=== PATIENT | female | born 1955 | race Caucasian/White ===

== ENCOUNTER → 2021-04-18 10:35 | Outpatient (BNVA) | payer MEDICAID, SELFPAY | PROVIDERS: PCP Nurse Practitioner Family; Visit Provider Nurse Practitioner Family | DX: R53.83 Other fatigue (principal); E78.5 Hyperlipidemia, unspecified; I10 Essential (primary) hypertension | CPT/HCPCS: 80053; 80061; 84443; 85007; 85027 ==

== ENCOUNTER 2021-06-27 12:58 | Outpatient (CLI) | payer MEDICAID, SELFPAY ==
--- NOTE | 2021-06-27 14:15 | USCV_ITS ---
Lois Russo Age: 66 Gender: F : 1955 Exam Date: 06/27/2021 13:11 Ordering Phys: Phyllis Cheney Technologist: Raissa Amos [place]am Location[place] [facility] [place]ication: HTN AND REDUCED RENAL FUNCTION Aortic Velocity @ SMA (cm/s) 76.1 RIGHT KIDNEY LEFT KIDNEY Velocity (cm/s) Velocity (cm/s) Sys/Farr Sys/Farr Resistive Index Resistive Index 46.3 / 19.8 0.57 Proximal Renal Artery 89.2 / 20.7 0.77 95.0 / 27.3 0.71 Mid Renal Artery 103.6 / 16.4 0.84 77.7 / 30.6 0.61 Distal Renal Artery 84.5 / 24.5 0.71 82.6 / 21.5 0.74 Hilar 91.3 / 24.5 0.73 89.2 / 22.3 0.75 Upper Pole 44.1 / 14.7 0.67 97.5 / 27.3 0.72 Mid Pole 53.3 / 16.1 0.70 52.1 / 19.0 0.63 Lower Pole 54.0 / 13.6 0.75 1.20 Renal Aortic Ratio 1.36 Accleration Index (cm/sec2) 1158.0 Hilar 658.00 0 513.00 Upper Pole 226.00 797.00 Mid Pole 289.00 421.00 Lower Pole 323.00 93.8 Kidney Length (mm) 92.2 CONCLUSIONS No sonographic evidence of hemodynamically significant renal artery stenosis bilaterally. Normal Resistive Indices. Right kidney measurs 9.3cm Left kidney measures 9.2cm Sal Saleh MD (Electronically Signed) Final Date: 01 July 2021 11:59 S
== END 2021-06-27 12:59 | disposition home or self-care (01) ==
LOC: RAD 12:58
PROVIDERS: PCP Nurse Practitioner Family; Visit Provider Nurse Practitioner Family
DX: I10 Essential (primary) hypertension (principal)
CPT/HCPCS: 93975

== ENCOUNTER → 2021-07-31 10:42 | Outpatient (BNVA) | payer MEDICAID, SELFPAY | PROVIDERS: PCP Nurse Practitioner Family; Visit Provider Nurse Practitioner Family | DX: R39.9 Unspecified symptoms and signs involving the genitourinary system (principal) | CPT/HCPCS: 81000; 87077; 87086; 87184 ==

== ENCOUNTER → 2021-11-21 13:36 | Outpatient (BNVA) | payer MEDICAID, SELFPAY | PROVIDERS: PCP Nurse Practitioner Family; Visit Provider Nurse Practitioner Family | DX: N39.0 Urinary tract infection, site not specified (principal) | CPT/HCPCS: 81000 ==

== ENCOUNTER 2021-12-16 12:48 | Outpatient (CLI) | payer MEDICAID, SELFPAY ==
--- NOTE | 2021-12-16 12:57 | XRR_ITS ---
PROCEDURE INFORMATION: Exam: XR Lumbosacral Spine Exam date and time: 12/16/2021 1:08 PM Age: 66 years old Clinical indication: Low back pain; Prior surgery; Surgery type: Fusion; Patient HX: Pain from low back to knee; Additional info: M54.50 - low back pain, unspecified TECHNIQUE: Imaging protocol: Radiologic exam of the lumbosacral spine. Views: 2 or 3 views. COMPARISON: [place] [id number] 11/17/2015 8:02 PM FINDINGS: Bones/joints: Mild levocurvature of the lumbar spine is present. The normal lumbar lordosis is maintained, with grade 1 retrolisthesis of L2 and L1. The patient is status post L3-L5 posterior fusion. No evidence of hardware related complication. No fracture identified. Vertebral body heights are well preserved. There is multilevel degenerative changes, manifested by intervertebral disc space narrowing, endplate osteophytes and facet joint arthrosis. Soft tissues: Unremarkable. Intraperitoneal space: Cholecystectomy clips project over the right upper quadrant. XR/XR lumbar spine 2-3V* [id number] IMPRESSION: 1. No acute injury. 2. Degenerative changes of the lumbar spine. 3. Stable appearance of L3-L5 posterior fusion, without evidence of hardware related complication.
== END 2021-12-16 12:49 | disposition home or self-care (01) ==
LOC: RAD 12:50
PROVIDERS: PCP Nurse Practitioner Family; Visit Provider Nurse Practitioner Family
DX: M54.50 Low back pain, unspecified (principal); Z98.1 Arthrodesis status
CPT/HCPCS: 72100; 81000

== ENCOUNTER → 2021-12-30 10:40 | Outpatient (BNVA) | payer MEDICAID, SELFPAY | PROVIDERS: PCP Nurse Practitioner Family; Visit Provider Orthopaedic Surgery | DX: M54.50 Low back pain, unspecified (principal); Z98.1 Arthrodesis status | CPT/HCPCS: 99203; 99204 ==

== ENCOUNTER → 2021-12-30 12:36 | Outpatient (BNVA) | payer MEDICAID, SELFPAY | PROVIDERS: PCP Nurse Practitioner Family; Visit Provider Nurse Practitioner Family | DX: M54.9 Dorsalgia, unspecified (principal); Z98.890 Other specified postprocedural states; R31.9 Hematuria, unspecified; N39.0 Urinary tract infection, site not specified | CPT/HCPCS: 87077; 87086; 87184 ==

== ENCOUNTER → 2022-01-07 11:17 | Outpatient (BNVA) | payer MEDICAID, SELFPAY | PROVIDERS: PCP Nurse Practitioner Family; Visit Provider Nurse Practitioner Family | DX: R31.9 Hematuria, unspecified (principal) | CPT/HCPCS: 87086 ==

== ENCOUNTER → 2022-03-02 16:47 | Outpatient (BNVA) | payer MEDICARE, MEDICAID, SELFPAY | PROVIDERS: PCP Nurse Practitioner Family; Visit Provider Nurse Practitioner Family | DX: M54.9 Dorsalgia, unspecified (principal); Z98.890 Other specified postprocedural states; I10 Essential (primary) hypertension | CPT/HCPCS: 80053 ==

== ENCOUNTER 2022-03-12 10:58 | Outpatient (CLI) | payer MEDICARE, MEDICAID, SELFPAY ==
--- NOTE | 2022-03-12 11:00 | MR_ITS ---
WS: [id number] MRI LUMBAR SPINE NONCONTRAST TECHNIQUE: Sagittal T1, T2 and STIR imaging. Axial T1 and T2 imaging. CLINICAL INFORMATION: low back pain COMPARISON: None. FINDINGS: Mild lumbar curve. No acute compression. Pedicle screw fixation L3-L5 with decompressive laminectomie s. Slight retrolisthesis L1 on L2 and L2 on L3. Slight anterolisthesis L4 on L5. Small central protru sions the lower thoracic spine at T8-T9, T10-T11, T12-L1. L1-L2: Mild disc bulging with mild central canal stenosis. Narrowing of the subarticular recess bilat erally. Moderate facet arthropathy with ligamentum flavum hypertrophy. Moderate RIGHT greater than LE FT foraminal narrowing. L2-L3: Slight retrolisthesis. Mild central disc bulging. Moderate central canal stenosis and impingem ent traversing L3 nerve roots bilaterally. Moderate bilateral foraminal narrowing. L3-L4: Mild disc bulging. Moderate facet arthropathy. Spinal canal is patent. Mild LEFT bony foramina l narrowing. Moderate facet arthropathy. L4-L5: Laminectomy defects. Mild disc bulging with slight effacement of ventral thecal sac. Slight im pingement traversing L5 nerve roots bilaterally. Mild central canal stenosis. Mild RIGHT greater than LEFT foraminal narrowing. L5-S1: Mild annular bulging with slight impingement traversing LEFT greater than RIGHT S1 nerve roots . Mild to moderate LEFT foraminal narrowing. Mild to moderate facet arthropathy. Spinal canal is will nt. Small RIGHT renal cyst. MR/MR lumbar spine wo con* [id number] IMPRESSION: 1. Prior postoperative changes pedicle screw fixation L3-L5 with laminectomy d efects L3 and L4 2. Mild central canal stenosis L1-L2 with narrowing of the subarticular recess bilaterally. Technique 3. Moderate central canal stenosis L2-L3 with narrowing of the subarticular re cess. 4. Mild central canal stenosis L4-L5 with impingement on the traversing L5 ner ve roots bilaterally RIGHT greater than LEFT. 5. Disc bulging L5-S1 with slight impingement on the LEFT S1 nerve root. 6. Multilevel mild to moderate foraminal narrowing worse at RIGHT L1-L2, bilat eral L2-L3, and LEFT L5-S1. 7. Mild RIGHT greater than LEFT L4-L5 bony foraminal narrowing. 8. Small central protrusion at T8-T9 with slight contact of the thoracic cord with mild central canal stenosis. Additional small protrusions at T10-T11 and T 12-L1.
== END 2022-03-12 10:59 | disposition home or self-care (01) ==
LOC: RAD 10:59
PROVIDERS: PCP Nurse Practitioner Family; Visit Provider Orthopaedic Surgery
DX: M48.061 Spinal stenosis, lumbar region without neurogenic claudication (principal); Z98.1 Arthrodesis status; M51.36 Other intervertebral disc degeneration, lumbar region
CPT/HCPCS: 72148; 87077; 87086; 87184

== ENCOUNTER → 2022-03-17 10:34 | Outpatient (BNVA) | payer MEDICARE, MEDICAID, SELFPAY | PROVIDERS: PCP Nurse Practitioner Family; Visit Provider Orthopaedic Surgery | DX: M48.062 Spinal stenosis, lumbar region with neurogenic claudication (principal); Z98.1 Arthrodesis status | CPT/HCPCS: 99214 ==

== ENCOUNTER 2022-05-22 14:20 | Outpatient (CLI) | payer MEDICARE, MEDICAID, SELFPAY ==
--- NOTE | 2022-05-22 15:07 | XR_ITS ---
WS: [id number] PA chest with bilateral rib detail, 05/22/2022 Clinical Data: S22.49XA - Multiple fractures of ribs, unspecified side, ... Comparison: Portable chest, 12/30/2015. Findings: The heart and lungs show no acute change. There is a subcarinal granuloma. There is a dextroscoliosis of the thoracic vertebral bodies. The superior aspect of the posterior lumbar fusion is seen. There are left lateral rib fractures of the sixth, seventh and eighth ribs with periosteal new bone formati on. There are right lateral rib fractures of the fourth, fifth, sixth, seventh and eighth ribs with p eriosteal new bone formation. No pneumothorax or subcutaneous emphysema is seen. XR/XR ribs BI 3V* [id number] Impression: 1. Old bilateral rib fractures. 2. Negative for acute cardiopulmonary disease.
== END 2022-05-22 14:21 | disposition home or self-care (01) ==
LOC: RAD 14:25
PROVIDERS: PCP Nurse Practitioner Family; Visit Provider Nurse Practitioner Family
DX: S22.49XA Multiple fractures of ribs, unspecified side, initial encounter for closed fracture (principal); X58.XXXA Exposure to other specified factors, initial encounter
CPT/HCPCS: 71110

== ENCOUNTER → 2022-06-09 15:32 | Outpatient (BNVA) | payer MEDICARE, MEDICAID, SELFPAY | PROVIDERS: PCP Nurse Practitioner Family; Visit Provider Orthopaedic Surgery | DX: M48.062 Spinal stenosis, lumbar region with neurogenic claudication (principal) | CPT/HCPCS: 99214 ==

== ENCOUNTER → 2022-06-23 14:07 | Outpatient (BNVA) | payer MEDICARE, MEDICAID, SELFPAY | PROVIDERS: PCP Nurse Practitioner Family; Referring Provider Orthopaedic Surgery; Visit Provider Orthopaedic Surgery | DX: M16.12 Unilateral primary osteoarthritis, left hip (principal) | CPT/HCPCS: 73502; 99214 ==

== ENCOUNTER 2022-07-27 09:01 | Inpatient (IN) | payer MEDICARE, MEDICAID, SELFPAY ==
[2022-07-21 13:10] VITALS: BMI 27.3
[2022-07-21 13:47] LABS: Anion Gap 14.4 (5-19); Blood Urea Nitrogen 18 mg/dL (8-23); Calcium 9.7 mg/dL (8.5-10.5); Carbon Dioxide 29 mmol/L (22-29); Chloride 93 mmol/L (98-107); Glomerular Filtration Rate 55.6 mL/min (90-130); Glucose 105 mg/dL (65-115); Osmolality Calculated 278 mOsm/kg (285-295); Potassium 3.4 mmol/L (3.5-5.1); Sodium 133 mmol/L (136-145)
[2022-07-27] VITALS (17 sets, daily range): BP systolic 97–173; BP diastolic 53–89; PULSE 59–77; RESP 14–18; TEMP 36.2–36.8; O2SAT 2–100
[2022-07-27] MEDS: sodium chloride 0.9% 1,000 ML 30 ML IV (09:18)
--- NOTE | 2022-07-27 09:43 | P.ANESASSM_ITS ---
Pre-Anesthetic Assessment Height/Weight: Height 1.73 m Weight 81.647 kg Temp Pulse Resp BP Pulse Ox O2 Del Method 97.2 F L 59 L 16 173/89 95 07/27/22 09:10 07/27/22 09:10 07/27/22 09:10 07/27/22 09:10 07/27/22 09:10 07/27/22 09:10 Preop Diagnosis: Lumbar stenosis with neurogenic claudication. DDD L spine Operation Date: 07/27/22 10:30 Proposed Procedures p Spinal Fusion:Pelvis fusion with sacroliliac fusion-w decomp L1-L2 L2/3 and L5-S1, 34050,15023,90433,57203,95829,40901,01665,88705,58697,46068,M48.062(Not Applicable) - DO francisco Calix Lumbar Spine Decompression(Not Applicable) - Horacio Nagy DO Familial anesthetic complications: none Was Beta Nikhil taken within 24 hours: Yes Was Clonidine taken within 24 hours: N/A Last intake: Intake Last Liquid Date 07/26/22 Last Liquid Time 23:00 Last Solid Date 07/26/22 Last Solid Time 18:00 Social Tobacco and No alcohol Exam alert, oriented x 3 and regular rate & rhythm Airway Submandibular: within normal limits Cervical ROM: within normal limits Mallampati: Class II Dentition: false Pulmonary Chronic Obstructive Pulmonary Disease CV/HEM Hypertension GI Gastroesophageal Reflux Disease [facility] [place] Lower Back Pain and Osteoarthritis/DJD Anesthetic Plan ASA status: 3 Anesthesia: General Other: A.line, transfusion OK Medications/Allergies Home Medications Medication Instructions Recorded Confirmed Last Taken Type budesonide 3 mg See Rx Instructions .Route 05/19/22 07/21/22 07/21/22 Rx capsule,delayed,extended release .COMPLEX #180 caps citalopram 20 mg tablet See Rx Instructions .Route 05/19/22 07/21/22 07/21/22 Rx .COMPLEX #90 tabs diltiazem HCl 300 mg See Rx Instructions .Route 05/19/22 07/21/22 07/21/22 Rx capsule,extended release 24 hr .COMPLEX #90 caps hydrochlorothiazide 25 mg tablet See Rx Instructions .Route 05/19/22 07/21/22 07/20/22 Rx .COMPLEX #90 tabs lisinopril 40 mg tablet See Rx Instructions .Route 05/19/22 07/21/22 07/21/22 Rx .COMPLEX #90 tabs metoprolol succinate 100 mg See Rx Instructions .Route 05/19/22 07/21/22 07/20/22 Rx tablet,extended release 24 hr .COMPLEX #90 tabs potassium chloride 10 mEq 10 meq PO DAILY #90 tabs 05/19/22 07/21/22 07/21/22 Rx tablet,extended release(part/cryst) rabeprazole 20 mg tablet,delayed 20 mg PO DAILY #90 tabs 05/19/22 07/21/22 07/21/22 Rx release Bone Growth Stimulator E0748 #1 ea 07/13/22 Unknown Rx Intraoperative Neuromonitoring #1 ea 07/13/22 Unknown Rx Allergies Allergy/AdvReac Type Severity Reaction Status Date / Time nitrofurantoin AdvReac sob Verified 06/23/22 13:56 [From Macrobid] Current Medications Generic Name Dose Route Start Last Admin Trade Name Freq PRN Reason Stop Dose Admin Sodium Chloride 1,000 mls @ 30 mls/hr 07/27/22 09:00 07/27/22 09:18 Sodium Chloride 0.9% IV 07/28/22 08:59 30 mls/hr .Q24H JONO Administration PFSH Anesthesia Medical History Anxiety Back pain with history of spinal surgery GERD (gastroesophageal reflux disease) History of stomach ulcers Hx of cardiac murmur Hypertension Surgical History History of tonsillectomy Hx of bladder repair surgery Hx of cholecystectomy Hx of hysterectomy Previous back surgery Family History Father CAD (coronary artery disease) Mother No problems noted. Social History Smoking and tobacco status: never smoked Alcohol intake: never Data Anesthesia 07/21/22 13:19 Cardiac Studies: No Data to Display
--- NOTE | 2022-07-27 10:19 | PM.HP ---
Providers/Chief Complaint Primary Care Provider: HENOK Caicedo Chief Complaint: L1 pelvic fusion w sacroiliac fusion.decompL1-L2 a History of Present Illness Lois Russo is a 67 year old female Established 67 year old female patient here today for a follow up of low back pain. Patient states she was scheduled for surgical intervention with Dr. Nagy but had to cancel due to an a fall. She states she broke 8 ribs. She states she has finally recovered and ready to re schedule surgery. Chief Complaint: low back pain Onset: months ago Duration: constant Characteristics: aching, sharp, stabbing Severity: Location: lumbar region Radiating symptoms: pain radiates into left lower extremities Aggravating factors: standing and walking Alleviating factors:pain medication Neuro deficits: reports weakness,. denies numbness, tingling, incontinence of bowel/bladder, saddle anesthesia. Prior tx:?injections, Lumbar fusion, physical therapy Review of Systems Const: Denies: fever(s) or chills Card: Denies: chest pain or dyspnea on exertion Resp: Denies: dyspnea or productive cough GI: Denies: abdominal pain, nausea or vomiting : Denies: difficulty voiding Musc: Denies: joint pain, joint swelling or limited range of motion Skin/Breast: Denies: changes in skin color or dry skin Neuro: Denies: numbness in extremities or weakness in extremities Psych: Denies: anxiety Doug/Lymph: Denies: easy bruising or easy bleeding Medications/Allergies Home Medications Medication Instructions Recorded Confirmed Last Taken Type budesonide 3 mg See Rx Instructions .Route 05/19/22 07/21/22 07/21/22 Rx capsule,delayed,extended release .COMPLEX #180 caps citalopram 20 mg tablet See Rx Instructions .Route 05/19/22 07/21/22 07/21/22 Rx .COMPLEX #90 tabs diltiazem HCl 300 mg See Rx Instructions .Route 05/19/22 07/21/22 07/21/22 Rx capsule,extended release 24 hr .COMPLEX #90 caps hydrochlorothiazide 25 mg tablet See Rx Instructions .Route 05/19/22 07/21/22 07/20/22 Rx .COMPLEX #90 tabs lisinopril 40 mg tablet See Rx Instructions .Route 05/19/22 07/21/22 07/21/22 Rx .COMPLEX #90 tabs metoprolol succinate 100 mg See Rx Instructions .Route 05/19/22 07/21/22 07/20/22 Rx tablet,extended release 24 hr .COMPLEX #90 tabs potassium chloride 10 mEq 10 meq PO DAILY #90 tabs 05/19/22 07/21/22 07/21/22 Rx tablet,extended release(part/cryst) rabeprazole 20 mg tablet,delayed 20 mg PO DAILY #90 tabs 05/19/22 07/21/22 07/21/22 Rx release Bone Growth Stimulator E0748 #1 ea 07/13/22 Unknown Rx Intraoperative Neuromonitoring #1 ea 07/13/22 Unknown Rx Allergies Allergy/AdvReac Type Severity Reaction Status Date / Time nitrofurantoin AdvReac sob Verified 06/23/22 13:56 [From Macrobid] PFSH Acute PFSH: Medical History Anxiety Back pain with history of spinal surgery GERD (gastroesophageal reflux disease) History of stomach ulcers Hx of cardiac murmur Hypertension Surgical History History of tonsillectomy Hx of bladder repair surgery Hx of cholecystectomy Hx of hysterectomy Previous back surgery Family History Father CAD (coronary artery disease) Mother No problems noted. Social History Smoking and tobacco status: never smoked Alcohol intake: never Vitals/I&O/Wt Last Vital Signs Temp 97.2 F L 07/27/22 09:10 Pulse 59 L 07/27/22 09:10 Resp 16 07/27/22 09:10 BP 173/89 07/27/22 09:10 Pulse Ox 95 07/27/22 09:10 O2 Del Method 07/27/22 09:10 Physical Exam Narrative: EXAM NARRATIVE: CONSTITUTIONAL: This is a normal patient in no acute distress. ?PSYCH: The patient is oriented to person, place and time. ?SKIN: The skin is of normal color and texture. ?NEURO: Patient is neurovascularly intact. ?MUSCULOSKELETAL / EXTREMITIES: ?1.? lnjury(s):?Lumbar stenosis with neurogenic claudication Data 07/21/22 13:19 A&P Assessment and plan (1) Lumbar stenosis with neurogenic claudication: T10 to pelvis fusion with decompression Attestations Medical Necessity Statement*: Failed conservative tx Coding Level of Care Code Acute Code for Chg Fwd Diagnoses Lumbar stenosis with neurogenic claudication M48.062
[2022-07-27] MEDS: ceFAZolin 2,000 MG in sodium chloride 0.9% (plus) 50 ML 100 MG IV ×2 (10:52→18:25)
--- NOTE | 2022-07-27 11:29 | SUR.OPER ---
skin tear noted to left elbow after turning patient. Tegaderm applied to open wound and coban over tegaderm.
[2022-07-27 11:50] LABS: Basophils % 0.3 %; Eosinophils # 0.1 10^3/uL (0.0-0.8); Eosinophils % 0.6 %; Hematocrit 38.7 % (37.0-47.0); Hemoglobin 12.9 g/dL (11.5-15.3); Lymphocytes # 3.7 10^3/uL (0.8-4.8); Lymphocytes % 29.7 %; Mean Corpuscular HGB Conc 33.3 g/dL (30.0-36.0); Mean Corpuscular Hemoglobin 30.8 pg (28.0-34.0); Mean Corpuscular Volume 92.4 fl (81-99); Mean Platelet Volume 9.5 fL (7.4-10.4); Monocytes # 0.7 10^3/uL (0.2-0.9); Monocytes % 5.8 %; Neutrophils # 7.96 10^3/uL (1.8-7.7); Neutrophils % 63.1 %; Nucleated Red Blood Cells % 0 %; Platelet Count 311 10^3/cmm (130-400); Red Blood Count 4.19 10^6/uL (4.1-5.3); Red Cell Distribution Width 13.7 % (12.1-15.1); White Blood Count 12.6 10^3/uL (4.0-10.0)
[2022-07-27] MEDS: vancomycin 1,000 MG SDV 1000 MG XX ×2 (11:57→15:54)
[2022-07-27] MEDS: lidocaine-epi 1% 20 mL INJ INJECTION (11:57)
[2022-07-27] MEDS: heparin, porcine 1,000 unit/mL INJ 10 mL 10000 UNIT IRRIGATION (11:57)
[2022-07-27 12:09] LABS: Blood Urea Nitrogen 16 mg/dL (8-23); Calcium 8.5 mg/dL (8.5-10.5); Carbon Dioxide 27 mmol/L (22-29); Chloride 97 mmol/L (98-107); Glomerular Filtration Rate 62.8 mL/min (90-130); Glucose 103 mg/dL (65-115); Osmolality Calculated 281 mOsm/kg (285-295); Sodium 135 mmol/L (136-145)
--- NOTE | 2022-07-27 12:12 | SUR.OPER ---
family notified of surgical start and progress.
--- NOTE | 2022-07-27 13:45 | SUR.OPER ---
family updated on surgical progress.
--- NOTE | 2022-07-27 16:52 | XRR_ITS ---
PROCEDURE INFORMATION: Exam: XR Lumbosacral Spine Exam date and time: 07/27/2022 4:12 PM Age: 67 years old Clinical indication: Device placement; Internal orthopedic prosthetic device, implant or graft thoracolumbar spine; Prior surgery; Surgery date: Post-operative (0-2 days); Surgery type: Pa/lat post op fusion, include up to t10 and the pelvis TECHNIQUE: Imaging protocol: Radiologic exam of the lumbosacral spine. Views: 2 or 3 views. COMPARISON: OT XR lumbar spine 1V [id number] 07/27/2022 10:28 AM FINDINGS: Bones/joints: Osteopenia. He Multilevel laminectomy and pedicle screw fixation in the thoracolumbar spine, along with bilateral surgical sacroiliac joint ankylosis. Multilevel degenerative change and mild scoliosis. Gastrointestinal tract: Bowel dilatation and prominent stool. XR/XR lumbar spine 2-3V* [id number] IMPRESSION: 1. Multilevel laminectomy and pedicle screw fixation in the thoracolumbar spine, along with bilateral surgical sacroiliac joint ankylosis. 2. Multilevel degenerative change and mild scoliosis.
--- NOTE | 2022-07-27 17:04 | ANE.PACU2 ---
Inpatient post-anesthesia follow up: Airway intact: Yes Vital signs: Temperature 97.2 F Pulse Rate 59 Respiratory Rate 16 Blood Pressure 173/89 Pulse Oximetry 95 Oxygen Delivery Me thod Room Air Oxygen Flow Rate 6 Fraction of Inspir ed Oxygen Hydration adequate: Yes Nausea and vomiting: No Pain level: 5 Mental status: Baseline
--- NOTE | 2022-07-27 17:23 | PM.OP ---
Operative Report Date of procedure: July 27, 2022 Pre-op diagnosis: Preop Diagnosis Lumbar stenosis with neurogenic claudication. DDD L spine Post-op diagnosis: same Procedure done: 1. L5/S1 Interbody fusion with posterolateral fusion 2. T10 - pelvis posterior fusion 3. Instrumentation T10 -S1 4. Lumbo pelvic instrumentation 5. Cage at L5/S1 6. Laminectomy L5/S1 7. Laminectomy L2/3 with partial facetectomies 8. laminectomy L3/4 with partial facetectomies 9. Right open SI joint fusion 10. Left open SI joint fusion 11. Use of computer navigation stereotactic for spine 12. Bone marrow aspirate from right iliac crest 13. use of autograft from same incision 14. use of allograft 15. Removal of deep hardware from spine (L3-L5) Surgeon: Horacio Nagy Estimated blood loss (mL): 300 Complications: dural tear Procedure: 1. L5/S1 Interbody fusion with posterolateral fusion 2. T10 - pelvis posterior fusion 3. Instrumentation T10 -S1 4. Lumbo pelvic instrumentation 5. Cage at L5/S1 6. Laminectomy L5/S1 7. Laminectomy L2/3 with partial facetectomies 8. laminectomy L3/4 with partial facetectomies 9. Right open SI joint fusion 10. Left open SI joint fusion 11. Use of computer navigation stereotactic for spine 12. Bone marrow aspirate from right iliac crest 13. use of autograft from same incision 14. use of allograft 15. Removal of deep hardware from spine (L3-L5) Patient is brought to the operative suite. After undergoing anesthesia, the patient had neuro monitoring attached. Patient was then placed in the prone position on the González table. All areas of impingement were well-padded. Patient was then prepped and draped in the normal sterile fashion. Skin incision was then made over the T10 to sacrum. Subperiosteal dissection was made out to the transverse processes of T10 to S1 ala.. Once the exposure was complete attention was then brought to removing the current pedicle screws. The K2 M screws were in the tool used to remove the annalee was not present. Side cut the rods. Rods were cut with a Midas using the metal cutting bur. Rods were cut and then the screws were backed out wires. This was done at L3-L4 and L5 bilaterally. Once screws were removed L3 was irrigated. Next attention was brought to the Responde Ai bone marrow aspirate kit was used to aspirate bone marrow aspirate from right iliac crest. This was done by using the sharp probe to open up the bone. Aspiration was performed and then the blunt probe was then used to dissect down to through the bone tunnel. An aspirating well drawn back a millimeter approximately 20 cc of bone marrow aspirate was used. Admixed with the allograft and autograft bone that will be used. Next attention was brought to placing the fiducial for the computer navigation. 2 pins were placed in the right iliac crest. Fiducial was attached. C-arm was brought in and spun around the patient. This was then used to place pedicle screws with computer navigation. The 2 pins that were used for the computer computer navigation were pulled out at the end of the case. The technique for placing the pedicle screws was to use a drill followed by the gearshift probe linked to computer navigation. Followed by the ball probe to feel the superior inferior medial lateral murrieta of the pedicles. Then placement of the screws using computer navigation. Was done at each pedicle. Screws were placed at T10 bilaterally, T11 bilaterally, T12 bilaterally, L1 bilaterally, L2 bilaterally, L3 and previous total on the right. A new hole was created on the left side. L4 bilaterally and the previous 4. L5 bilateral laterally in the previous hole. And S1 bilaterally. He was brought to performing the SI joint fusion. This was done by exposing the SI joint. A gearshift was then passed across through the sacral ala across the SI joint. Just inferior and lateral to the S1 screw. The drill path was created with the gearshift probe. And then the pin was placed into this hole. Then the screw was used to cross the SI joint. Once the hole was drilled prior to placing the screw. Bone graft was packed into this. In order to facilitate fusion as well as a screw. Past across the joint. This process was done on both the right and the left side. Next attention was brought to placing the iliac screw. This was done again using the computer navigation probe. Going from the sacrum across the SI joint across the ala. This was just inferior to the SI joint fusion screw. Once the hole was created then the pedicle feeler was passed to ensure that there is no breaches. And then the screw was placed distal to 9.5 x 80 mm [place] screw. Again this was done bilaterally on both the right and the left side. Next a laminectomy was performed at L2. The high-speed bur was used. With the partial facetectomies were done at L2-3 bilaterally. Again this was done with a high-speed bur. And then curved curettes and Kerrison rongeurs were used to take down the lamina as well as the ligamentum flavum from L2-L3. Medial aspect of facet joints taken down from and L2-3. The L2 nerve was traced out the L2-3 foramen. The dura was tenting up at L3-4 so I felt that the laminectomy reformed L3 and partial facetectomies at L3-4. Laminectomy was then started to perform at L3. The high-speed bur causing scar tissue and it did cause a small tear in the dura. The remaining laminectomy was performed and medial aspect of facets were taken down bilaterally. Nerves were traced out the foramen. The dura was then repaired with a nylon stitch. Gelfoam was packed in order to prevent nerve roots from waking up. And at the end of the case a DuraGen and DuraSeal were used to seal this off. Next attention was brought to performing the laminectomy ofL5. This was done using the high-speed bur Kerrisons and curettes. Once the lamina was removed and then attention was brought to performing a partial facetectomy on the contralateral side. This was done again using the high-speed bur curettes and Kerrisons. The ligamentum flavum was taken down bilaterally from L5 to S1. Attention was then brought to the facet on the ipsilateral side. The facet was taken down. The S1 nerve was decompressed as it passed around the S1 pedicle. The laminectomy was done for purposes of decompressing the nerve as well as placement of the cage. The L5 nerve was identified as it traversed through the L5/S1 foramen. The thecal sac was identified and retracted. The L5/S1 disc base was identified. Using a knife the disc base was opened. And then sequential sandhya were placed. The first shaver was a 6 and the last shaver was a 8. Using a pituitary and down going curette the endplates were scraped and disc material was removed from the space. Once adequate decompression of the disc base was felt to be had. Osteoamp sponge was packed into the anterior aspect of the disc base. Then a size 9 cage from [employer] was placed after packing osteoamp into the cage. While placing the cage the thecal sac and S1 nerve was protected. C arm was used to ensure that the cages placed in the appropriate position. Attention was then brought to attaching the rods to the screws placed in the T10 down to S1 bilaterally. Rods were also connected to the iliac screws. Fluoroscopy to facilitate the lumbopelvic fixation Bilaterally. Caps were torqued into position. Locking the construct in place. Wound was copiously irrigated and then attention was brought to decorticating the facets and transverse processes laterally. Bone that was taken down from the lamina was used along with osteoamp fibers and sponges were packed into the lateral gutters along the facet joints. This was done bilaterally. Wound was then closed in a layered fashion starting with the thoracolumbar fascia. 0-vicryl was used the sub cutaneous tissue was closed with 2-0 vicryl and skin with 4-0 monocryl. Glue was then used to seal the skin and a steril dressing was applied. Patient was then placed in the supine position. The endotracheal tube was removed and patient was transferred to the PACU in stable condition.
[2022-07-27] MEDS: docusate sodium 100 mg Capsule PO (18:25)
[2022-07-27] MEDS: lactated ringers 1,000 ML 90 ML IV (18:26)
[2022-07-27] MEDS: morphine 4 mg/mL SDV 1 mL 2 MG IVP ×2 (18:26→20:33)
[2022-07-27] MEDS: ketorolac 30 mg/mL INJ IVP (23:09)
[2022-07-28] VITALS (7 sets, daily range): BP systolic 115–124; BP diastolic 67–80; PULSE 65–75; RESP 16–19; TEMP 36.6–37; O2SAT 93–98
[2022-07-28] MEDS: ceFAZolin 2,000 MG in sodium chloride 0.9% (plus) 50 ML 100 MG IV (02:37)
[2022-07-28] MEDS: HYDROcodone-acetaminophen 7.5-325 mg Tablet 1 TAB PO ×2 (02:38→13:51)
[2022-07-28] MEDS: morphine 4 mg/mL SDV 1 mL 2 MG IVP (06:18)
[2022-07-28] MEDS: lactated ringers 1,000 ML 90 ML IV (06:25)
--- NOTE | 2022-07-28 06:57 | PC.NURSE ---
250 cc total out of hemovac, bright red blood.
--- NOTE | 2022-07-28 07:58 | PM.PN ---
Subjective Subjective: Patient's pain is controlled had her lie flat last night because we had a dural tear. At this point she has no headaches. I did sit her head up was with her she did not have any headaches but I set that up. Vitals/I&O/Wt Last Vital Signs Temp 98.3 F 07/28/22 04:00 Pulse 65 07/28/22 04:00 Resp 17 07/28/22 06:18 BP 120/72 07/28/22 04:00 Pulse Ox 96 07/28/22 04:00 O2 Del Method 07/28/22 04:00 O2 Flow Rate 2 07/27/22 23:53 07/27/22 07/28/22 07/28/22 22:59 06:59 14:59 Intake Total 3100 / 3150 1000 / 4150 50 / 50 Output Total 1250 / 1250 250 / 1500 Balance 1850 / 1900 750 / 2650 50 / 50 Physical Exam Narrative: Patient has sensation and movement of all extremities. Complains some numbness and tingling in the fingertips. This is likely positional from surgery. She is 5/5 strength in lower extremities. Hemovac has minimal output. Urinary Catheter Management: Simmons: Cath Placed During This Visit: yes Reason for Continuing Indwelling Catheter: Required Immobilization for Trauma or Surgery or Anesthesia Urinary Catheter Date of Insertion: 07/27/22 Urinary Catheter Time of Insertion: 11:00 Data 07/27/22 11:37 07/27/22 11:37 A&P Assessment and plan (1) Status post lumbar spinal fusion: Patient is postop day 1 T10 to pelvis fusion. Patient is doing well. This point she is asking to go home. I would like to get her up and we will physical therapy to get her Simmons out make sure she is able to ambulate before she is discharged. This point we will pull Hemovac drain. Get her up with physical therapy if she does not have any headaches will be set her up. She does have headaches we will have to keep her here. If she does not have any headaches we will get up with physical therapy get her Simmons out and then consider discharge planning. Attestations Medical Necessity Statement*: pain control Coding Level of Care Code Acute Code for Chg Fwd Diagnoses Status post lumbar spinal fusion Z98.1
[2022-07-28] MEDS: citalopram 20 mg Tablet PO (08:44)
[2022-07-28] MEDS: potassium chloride ER 10 mEq Tablet PO (08:44)
[2022-07-28] MEDS: lisinopril 20 mg Tablet 40 MG PO (08:44)
[2022-07-28] MEDS: docusate sodium 100 mg Capsule PO (08:45)
--- NOTE | 2022-07-28 10:20 | PC.CHAP ---
Pastoral Care Encounter/Spiritual Assessment Type of Contact [] Declined sawyer helper visit [] Patient/Family/Request visit [] Outpatient visit [] Follow-up visit [] Physician referral [] Code/Alert [x] Routine visit [] Staff referral [] Actively dying [] Patient sleeping [x] Family support [] [] Out of room [] Palliative care [] [] Receiving care in room [] Pre-surgical visit [] Trauma [] Long length of stay [] ICU visit [] Other: Relational/Emotional Strength [x] Patient feels connected with others/family/visitors/staff [] Distress [] Loneliness/isolation [] Abandonment Spirituality of Patient [x] Person of Christine [] Attends Congregation of their Christine [] Believes in Prayer [] Reads Bible or Faith materials [] There are Spiritual issues to be addressed Product Scientist Interventions x] Prayer [x] Active listening [] Non-anxious presence [] Spiritual/emotional support [] Crisis/trauma care [] Spiritual counseling [] Bereavement support [] Provided bereavement packet [] Provided Bible/devotional materials [] Provided toy/stuffed animal, coloring book to patient or family member [] Provided Communion [] Anointing/Sheldon [] Salvation [x] Completed spiritual assessment [] Other: Impact on Illness or Injury [] Angry [] Fearful [] Anxious [] Often cries [] Exhaustion [] Unable to work [] Unable to attend gnosticist [] Unable to walk/stand [] Unable to read [] Unable to drive [] Unable to eat/drink [] Unable to sleep [] Unable to be with family [] Patient intubated [] Other: Summary Time spent with patient 10 min
[2022-07-28] MEDS: ceFAZolin 2,000 MG in sodium chloride 0.9% (plus) 50 ML 50 MG IV (10:56)
[2022-07-28] MEDS: nicotine 14 mg Patch 1 PATCH TRANSDERMA (10:56)
[2022-07-28] MEDS: dilTIAZem ER (24HR) 300 mg Capsule PO (10:57)
--- NOTE | 2022-07-28 18:42 | PC.NURSE ---
patient verbalized understanding of discharge instructions, home medications, and follow up appointments. IV removed and patient voided prior to discharge.
--- NOTE | 2022-07-29 14:53 | PM.DCS ---
Discharge Providers Date of Admission: 07/27/22 09:01 Date of Discharge: July 28, 2022 Attending Provider at Admission: Horacio Nagy DO Attending Provider at Discharge: Horacio Nagy DO Primary Care Provider: HENOK Caicedo Diagnoses at Discharge Discharge Diagnosis (1) Status post lumbar spinal fusion: Status: Acute Reason for Visit Reason for Visit: L1 pelvic fusion w sacroiliac fusion.decompL1-L2 a Hospital Course Hospital Course Patient did well was up with PT POD#1 pain was controlled Physical Exam Urinary Catheter Management: Simmons: Cath Placed During This Visit: yes, but has since been removed by the nurse Reason for Continuing Indwelling Catheter: Does Not Meet Criteria Urinary Catheter Date of Insertion: 07/27/22 Urinary Catheter Time of Insertion: 11:00 Date Urinary Catheter Removed: 07/28/22 Time Urinary Catheter Discontinued: 16:15 Discharge Data Studies Completed and Pending Completed Studies During Hospitalization Category Date Time Status XR lumbar spine 2-3V* [id number] Routine Exams 07/27/22 16:52 Completed Radiology Impressions Lumbar Spine X-Ray 07/27/22 16:52 IMPRESSION: 1. Multilevel laminectomy and pedicle screw fixation in the thoracolumbar spine, along with bilateral surgical sacroiliac joint ankylosis. 2. Multilevel degenerative change and mild scoliosis. Laboratory Results WBC 12.6 10^3/uL (4.0-10.0) H 07/27/22 11:37 RBC 4.19 10^6/uL (4.1-5.3) 07/27/22 11:37 Hgb 12.9 g/dL (11.5-15.3) 07/27/22 11:37 Hct 38.7 % (37.0-47.0) 07/27/22 11:37 MCV 92.4 fl (81-99) 07/27/22 11:37 MCH 30.8 pg (28.0-34.0) 07/27/22 11:37 MCHC 33.3 g/dL (30.0-36.0) 07/27/22 11:37 RDW 13.7 % (12.1-15.1) 07/27/22 11:37 Plt Count 311 10^3/cmm (130-400) 07/27/22 11:37 MPV 9.5 fL (7.4-10.4) 07/27/22 11:37 Neut % (Auto) 63.1 % 07/27/22 11:37 Lymph % (Auto) 29.7 % 07/27/22 11:37 [place] % (Auto) 5.8 % 07/27/22 11:37 Eos % (Auto) 0.6 % 07/27/22 11:37 Baso % (Auto) 0.3 % 07/27/22 11:37 Neut # (Auto) 7.96 10^3/uL (1.8-7.7) H 07/27/22 11:37 Lymph # (Auto) 3.7 10^3/uL (0.8-4.8) 07/27/22 11:37 [place] # (Auto) 0.7 10^3/uL (0.2-0.9) 07/27/22 11:37 Eos # (Auto) 0.1 10^3/uL (0.0-0.8) 07/27/22 11:37 Baso # (Auto) 0.0 10^3/uL (0.0-0.1) 07/27/22 11:37 Nucleated RBC % (auto) 0 % 07/27/22 11:37 Nucleated RBCs # 0.0 /100WBC 07/27/22 11:37 Sodium 135 mmol/L (136-145) L 07/27/22 11:37 Potassium 3.0 mmol/L (3.5-5.1) L 07/27/22 11:37 Chloride 97 mmol/L (98-107) L 07/27/22 11:37 Carbon Dioxide 27 mmol/L (22-29) 07/27/22 11:37 Anion Gap 14.0 (5-19) 07/27/22 11:37 BUN 16 mg/dL (8-23) 07/27/22 11:37 Creatinine 0.9 mg/dL (0.5-0.9) 07/27/22 11:37 GFR Calculation 62.8 mL/min (90-130) L 07/27/22 11:37 Glucose 103 mg/dL (65-115) 07/27/22 11:37 Calculated Osmolality 281 mOsm/kg (285-295) L 07/27/22 11:37 Calcium 8.5 mg/dL (8.5-10.5) 07/27/22 11:37 Blood Type O Positive 07/27/22 11:37 Rho(D) Type Positive 07/27/22 11:37 Antibody Screen TNP 07/27/22 11:37 PEG Antibody Screen Negative 07/27/22 11:37 Vitals Last Vital Signs Temp 98.6 F 07/28/22 18:46 Pulse 71 07/28/22 18:46 Resp 19 H 07/28/22 18:46 BP 115/72 07/28/22 18:46 Pulse Ox 93 07/28/22 18:46 O2 Del Method 07/28/22 10:00 O2 Flow Rate 2 07/28/22 10:00 Discharge Plan Discharge Patient Disposition: Home Condition: Stable Prescriptions: New hydrocodone-acetaminophen 10-325 mg tablet 1 tab PO Q4H PRN (Reason: pain) 7 Days Qty: 40 0RF Continued rabeprazole 20 mg tablet,delayed release (DR/EC) 20 mg PO DAILY Qty: 90 2RF potassium chloride 10 mEq tablet,ER particles/crystals 10 meq PO DAILY Qty: 90 0RF lisinopril 40 mg tablet See Rx Instructions .ROUTE .COMPLEX Qty: 90 0RF Dose Instruction: Take 1 tablet by mouth once daily Rx Instructions: Take 1 tablet by mouth once daily budesonide 3 mg capsule,delayed,extend.release See Rx Instructions .ROUTE .COMPLEX Qty: 180 0RF Dose Instruction: Take 2 capsules by mouth once daily Rx Instructions: Take 2 capsules by mouth once daily citalopram 20 mg tablet See Rx Instructions .ROUTE .COMPLEX Qty: 90 0RF Dose Instruction: Take 1 tablet by mouth once daily Rx Instructions: Take 1 tablet by mouth once daily diltiazem HCl 300 mg capsule,extended release 24hr See Rx Instructions .ROUTE .COMPLEX Qty: 90 0RF Dose Instruction: Take 1 capsule by mouth once daily Rx Instructions: Take 1 capsule by mouth once daily hydrochlorothiazide 25 mg tablet See Rx Instructions .ROUTE .COMPLEX Qty: 90 0RF Dose Instruction: Take 1 tablet by mouth once daily Rx Instructions: Take 1 tablet by mouth once daily metoprolol succinate 100 mg tablet extended release 24 hr See Rx Instructions .ROUTE .COMPLEX Qty: 90 0RF Dose Instruction: Take 1 tablet by mouth once daily Rx Instructions: Take 1 tablet by mouth once daily (DME) Intraoperative Neuromonitoring See Rx Instructions .[facility] 1 0RF Rx Instructions: As directed (DME) Bone Growth Stimulator E0748 See Rx Instructions .Route .MEDSUPPLY Qty: 1 0RF Rx Instructions: As directed Discharge Orders: Discharge Order (Routine); Ordered 07/28/22 Ordered By: Horacio Nagy Referrals: Horacio Nagy, DO [Physician] - 08/04/22 11:15 am Discharge Diet: Advance as tolerated Discharge Activity: Limit activity as instructed Patient Instructions: Hydrocodone/Acetaminophen (By mouth), Lumbar Spinal Fusion (GEN), Opioid Safety Activity Restrictions/Additional Instructions: Thank you for [facility] for your care! The following is a list of instructions, from your provider, to follow upon your discharge to ensure you have the optimal recovery from your recent injury orsurgery. Follow-up care is a craft part of your treatment and safety. Be sure to make and go to all appointments, and call your doctor if you are having problems. If you do not already have a follow-up appointment made, call Dr. Nagy office in the next 1-3 days to make follow up appointment for 1 weeks at [phone]. It is also a good idea to know your test results and keep a list of the medicines you take. Medications will be prescribed for you at your provider's discretion. These medications are to be used as instructed; if they are taken more often that prescribed they will not be refilled early and in most cases will not be refilled at all. > When a refill is needed,you should contact [facility] 2-3 business days before your prescription runs out. Medications will NOT be refilled by underwriting consultant providers after hours! > Many pain medications contain Tylenol (Acetaminophen). Do not consume more than 4,000 mg of Tylenol per day in total with any combination ofmedications. > Pain medications can cause constipation. Please use an over the counter stool softener as directed, while taking pain medications. Consulty our local pharmacist with questions or recommendations on stool softeners. If constipation persists, contact our office or your primary care provider. > While under our care,you are not to receive pain medications or other controlled substances from any other provider unless our office is notified and approves. Any attempts to do so will result in refusal to prescribe any further pain medications and possible dismissal from our practice. ? Your wound and/or dressing should remain clean and dry for 2 days after surgery. On postoperative day 2 (48 hours after your surgery) the dressing (if present) should be removed and it is okay to shower and get the incision wet. Pad dry afterwards. No further dressing should be required from that point on. Do not put any creams or ointments on theincision > It is normal for there to be a small amount of discharge (bloody or blood tinged) present from a surgical wound for the first 1-3days. > The wound should be examined twice a day for signs of infection. Mild redness or bruising is to be expected but indications that an infection maybe starting would include; An increase in redness, swelling, or discharge, a foul odor present around the incision, and/or a fever greater than 101 ?F ? Showering is permitted, however we ask that you do not take a bath, sit in a whirlpool / Jacuzzi, or go swimming for 1 month. For only the first 2 days after surgery, lt wilt be necessary for you to cover your wound/dressing with plastic and tape to keep it dry. ? Walking is essential for the healing process after surgery. We would like you to slowly advance your walking. This should be done on relatively flat clear ground (inside or out) or can be done on a treadmill. Remember this goal does not have to happen all at once, slowly increase your distance and duration. This can be broken into more more than one walk per day as tolerated. Patients who walk as directed after surgery rarely require Physical Therapy. In the unlikely event this issue arises your provider will direct hospital staff to make the appropriate arrangements. ? No lifting over 5 pounds {a gallon of milk) or bending/twisting until further notice. Each of these activities places an unnecessary amount of stress onto the body and can impede the delicate healing process. > Instead of bending at the waist, keep your back straight and bend at the knees. > Instead of twisting your torso, keep your back straight and turn your entire body with your feet. ? You may sleep in any position which makes you comfortable. Many patients find comfort sleeping in a reclining chair. It is not abnormal to have difficulty sleeping for the first several weeks following your surgery. We recommend trying Benadry! or Tylenol PM as directed to help with your sleeping difficulties. Both medications are over the counter and available withoutprescription. ? NO SMOKING!!! Smoking dramatically increases the probability of developing postoperative wound infections. ? Common complaints after lumbar and/or thoracic spine surgery include, but are not limited to: numbness and/or tingling in the legs, pain around the incision and surrounding tissues, muscle spasms, or stiffness of the middle to low back. Contact our office if these symptoms persist or if an acute change occurs. ? No driving for the first 3-5days, and not while taking narcotics until seen at your follow-up appointment and cleared. There are no restrictions for riding on short trips, however if you take a longer trip, arrangements should be made to make regular stops to get out of the vehicle and stretch . ? Swelling is an unfortunate event that will take place with any surgery and is the primary source of your postoperative discomfort. While walking and regular approved activities helps control inflammation, there are additional steps you can take to minimizeswelling. > Place ice over the surgical site and surrounding tissue for twenty minutes, followed by applying a low/medium heat (heating pad) for an additional twenty minutes every 1-2 hours as needed for painrelief. > You may use of over the counter anti-inflammatory medications (Ibuprofen, Motrin, Aleve, Advil, etc) as directed on the package label. These types of medicines wm significantly reduce the amount of discomfort you experience after surgery from swelling. It should be noted that if you have and allergy to any of these medications, or a history of ulcers or kidney disease you should consult you primary care provider prior to starting these medications. Discharge Attestations Time Spent in Discharge Care*: less than 30 min Quality Metrics Clinical Quality Measures [ No reported AMI, CVA or VTE this stay] Coding Level of Care Code Acute Code for Chg Fwd Diagnoses Status post lumbar spinal fusion Z98.1
== END 2022-07-28 18:52 | disposition home or self-care (01) | DRG 454 ==
LOC: MEDSURG 16:53
PROVIDERS: Anesthesiology; Admitting Provider Orthopaedic Surgery; PCP Nurse Practitioner Family; Visit Provider Orthopaedic Surgery
PROC: 0RG707J Fusion of 2 to 7 Thoracic Vertebral Joints with Autologous Tissue Substitute, Posterior Approach, Anterior Column, Open Approach (ICD-10-PCS; principal; 2022-07-27 10:10)
DX: M48.062 Spinal stenosis, lumbar region with neurogenic claudication (principal); G97.41 Accidental puncture or laceration of dura during a procedure; F41.9 Anxiety disorder, unspecified; K21.9 Gastro-esophageal reflux disease without esophagitis; I10 Essential (primary) hypertension
CPT/HCPCS: 36415; 51702; 72020; 72100; 76000; 80048; 85025; 86850; 86900; 97116; 97161; 97530; C1713; J0690; J1100; J1170; J1644; J1885; J2250; J2270; J2405; J2704; J2710; J3010; J3370; J3490; J7030; J7120; P9045

== ENCOUNTER 2022-08-01 12:56 | Inpatient (IN) | payer MEDICARE, MEDICAID, SELFPAY ==
[2022-08-01] VITALS (7 sets, daily range): BP systolic 114–144; BP diastolic 64–77; PULSE 64–79; RESP 15–18; TEMP 36.7–36.8; O2SAT 94–99; BMI 25.1
--- NOTE | 2022-08-01 13:12 | XRR_ITS ---
PROCEDURE INFORMATION: Exam: XR Abdomen Exam date and time: 08/01/2022 1:28 PM Age: 67 years old Clinical indication: Other: Back pain; Prior surgery; Surgery date: 3-7 days post-operative; Surgery type: Spinal fusion 5 days ago. Bladder repair; [place]urelia; Hyst; Additional info: Abdominal distention, no bm in 6 days TECHNIQUE: Imaging protocol: Radiologic exam of the abdomen. Views: 2 Views. Upright and supine views. COMPARISON: CT chest abdpel w/*[id number] 04/04/2022 4:40 PM FINDINGS: Chest: The heart great vessels appear normal. The lungs are expanded and clear Gastrointestinal tract: Dilated abdominal bowel loops seen in the upper abdomen corresponding to moderate ileus. No evidence of bowel obstruction is seen. Intraperitoneal space: Normal. No free air. Bones/joints: Extensive orthopedic hardware is seen in the dorsolumbar spine XR/XR acute abdomen series [id number] IMPRESSION: 1. moderate ileus 2. Negative for acute GI abnormality 3. Extensive orthopedic hardware lumbar spine 4. Negative chest examination
--- NOTE | 2022-08-01 13:18 | W.ED.BACK ---
Documented by User: MELVI Lucia 08/01/22 16:45 HPI - Back Pain/Injury General: Chief Complaint: Back Pain/Injury Stated Complaint: BACK PAIN; CONSTIPATION Time Seen by Provider: 08/01/22 12:58 History of Present Illness: Ms. Russo is a 67-year-old female that presents to the emergency department with complaints of postoperative back pain, bilateral lower extremity pain, abdominal distention and nausea. Patient states she had surgery on 07/[address] Nagy; she underwent a L1 to pelvis PLIF and fusion of SI joint. She was discharged home on 07/29/2022. She has been taking 10/325 [place] and docusate senna. She has not had a bowel movement in 6 days. She reports back pain is postsurgical pain. Lower extremity pain is unchanged from baseline?has a history of neurogenic claudication, her abdominal discomfort is new. She denies fevers but reports chills. She reports drainage from her surgical site; Steri-Strips have partially lifted and she has a saturated dressing and clothing Associated symptoms: Reports abdominal pain, chills, change in bowel habits, fatigue, nausea and vomiting; Deny difficulty walking, dysuria, fever(s), hematuria or urinary urgency Review of Systems General: Reports: 10 or more systems reviewed and unremarkable except in HPI and below Const: Reports: chills, change in appetite, fatigue and malaise; Denies: fever(s) or change in weight ENMT: Denies: throat pain, enlarged tonsils, odynophagia, hoarseness, ear or mastoid pain, ear discharge, change in hearing, tinnitus, nasal discharge, nasal congestion, post nasal drip or sinus pain Card: Reports: dyspnea on exertion and orthopnea; Denies: chest pain, palpitations, irregular heart rhythm, edema or leg pain with exertion Resp: Reports: dyspnea and non-productive cough; Denies: productive cough, wheezing, stridor or chest congestion GI: Reports: abdominal pain, nausea, vomiting, constipation, bloating, belching and change in bowel habits; Denies: dysphagia, diarrhea, GI cramping or hematochezia : Denies: flank pain, difficulty voiding, dysuria, urinary frequency, urinary urgency, urinary hesitancy, oliguria or hematuria Musc: Reports: back pain; Denies: neck pain, extremity pain, joint pain, joint swelling, joint redness, joint warmth or muscle weakness Skin/Breast: Denies: rash, pruritus, erythema, photosensitivity or new lesions Neuro: Denies: headache(s), numbness in extremities, weakness in extremities, sensory changes, lack of coordination, difficulty walking, frequent falls, dizziness, confusion, Slurred speech present, difficulty communicating thoughts, seizure-like activity or involuntary movements PFSH ED PFSH: Medical History Anxiety Back pain with history of spinal surgery GERD (gastroesophageal reflux disease) History of stomach ulcers Hx of cardiac murmur Hypertension Surgical History History of tonsillectomy Hx of bladder repair surgery Hx of cholecystectomy Hx of hysterectomy Previous back surgery Family History Father CAD (coronary artery disease) Mother No problems noted. Social History Smoking and tobacco status: never smoked Alcohol intake: never Physical Exam Const: COMMON NORMALS: no acute distress, patient oriented x3 and alert GENERAL APPEARANCE: cooperative ORIENTATION/CONSCIOUSNESS: Yes awake, Yes oriented to person, Yes oriented to place and Yes oriented to time HENMT: COMMON NORMALS: normocephalic and atraumatic HEAD & SCALP: normocephalic and atraumatic FACE & SINUS: normal facial exam MOUTH: Normal oral and palatal mucosa present THROAT: posterior oropharynx normal Eye: COMMON NORMALS: Equal, round and reactive pupils present, EOMs intact bilaterally, conjunctivae normal and no scleral icterus GENERAL EYE: appearance normal, both eyes and all related structures ALIGNMENT: Yes alignment normal PERIORBITAL: periorbital findings normal CONJUNCTIVA: Yes conjunctivae normal PUPIL: Yes Equal, round and reactive pupils present Neck/C-Spine: COMMON NORMALS: full ROM GENERAL: Yes normal visual inspection Lymph: LYMPHATIC: no lymphadenopathy noted Chest: COMMONS NORMALS: normal inspection of the chest Breast/axilla inspection: Yes no chest deformity, asymmetry, normal contours, no nodules, masses, tenderness Resp: COMMON NORMALS: normal respiratory effort, No retractions and No use of accessory muscles EFFORT & INSPECTION: No able to speak in complete sentences, Yes symmetric chest movement, Yes tachypneic and Yes prolonged expiratory phase AUSCULTATION: crackles, rhonchi, wheezes and diminished lung sounds Cardio: COMMON NORMALS: regular rate, regular rhythm and Peripheral pulses 2+ throughout RATE: regular rate RHYTHM: regular rhythm PERIPHERAL PULSES: Peripheral pulses 2+ throughout GI: COMMON NORMALS: Soft to palpation INSPECTION: Yes normal to inspection and Yes abdominal distension AUSCULTATION: Yes Hypoactive bowel sounds present PALPATION: Yes Soft to palpation and Yes Tenderness to palpation present (GI) Details: LLQ, RLQ, LUQ, RUQ and other RECTAL EXAM: deferred Extremity: NARRATIVE EXTREMITY EXAM: Thoracolumbar midline surgical incision that has been closed with glue and Steri-Strip Dressing and clothing are saturated with serosanguineous drainage but no drainage observed Patient reports pain from thoracolumbar back that radiates into bilateral lower extremities. This is unchanged from her baseline Patient has 4 -/5 hip flexor and quad. Largely limited due to pain 4/5 gastroc and anterior tibialis Gross sensation intact throughout distributions Numbness and tingling present in lower extremities; this is unchanged from baseline GENERAL: Yes normal exam except as noted Neuro: COMMON NORMALS: patient oriented x3 SENSORIUM/ORIENTATION: Yes alert, Yes oriented to person, Yes oriented to place and Yes oriented to time CRANIAL NERVES: Yes CN normal except as noted Psych: COMMON NORMALS: mental status grossly normal, Normal thought process present, cooperative, activity/motor behavior normal, denies homicidal ideation and denies suicidal ideation THOUGHT PROCESS: Normal thought process present Skin: COMMON NORMALS: no rashes or lesions noted, no wounds and turgor normal GENERAL SKIN EXAM: no rashes or lesions noted and turgor normal Course Vital Signs: Vital signs: Vital Signs Temperature 97.8 F 08/06/22 17:48 Pulse Rate 74 08/06/22 17:48 Respiratory Rate 16 08/06/22 17:48 Blood Pressure 136/81 08/06/22 17:48 Pulse Oximetry 93 08/06/22 17:48 Oxygen Delivery Me thod 08/06/22 16:05 Oxygen Flow Rate 2 08/06/22 08:00 MDM - Back Pain/Injury Medical Decision Making Patient was seen in the emergency department for complaints of low back pain that radiates to bilateral lower extremities, abdominal distention, belching, and constipation. In the emergency department I obtained a chest x-ray due to baseline respiratory status and audible wheezes. I ordered DuoNeb q. 20 minutes x 3. I have asked the nurse to redress the surgical site. Respiratory status has improved patient is resting quietly. I have obtained an acute abdominal series to assess for small bowel obstruction. Which reveals ileus without obstruction. I have ordered Zofran, Norflex, Toradol, fentanyl for her pain and nausea. IV fluids been started and patient's been made n.p.o. Urinalysis has been obtained through an in/out cath. Patient has a mild leukocytosis and mild anemia. Her hemoglobin does not require transfusion at this time. Chemistry panel reveals a potassium of 3.0 and sodium of 129. Has been given a bolus of normal saline and potassium. Reveals moderate ileus without obstruction. Patient is unable to tolerate p.o. fluids. Hospitalist, Dr Kholi, has been consulted and Dr. Nagy will be notified Labs 08/01/22 13:40 08/01/22 13:40 Radiology Impressions Chest/Abdomen X-ray 08/01/22 13:12 IMPRESSION: 1. moderate ileus 2. Negative for acute GI abnormality 3. Extensive orthopedic hardware lumbar spine 4. Negative chest examination Abdomen/Pelvis CT 08/03/22 10:38 IMPRESSION: 1. No sign of bowel obstruction or an ileus. 2. No large volume ascites. Chest CTA 08/05/22 17:45 IMPRESSION: 1. No pulmonary embolus. 2. Small bilateral pleural effusions with adjacent lower lobe consolidation. Correlate for pneumonia. COMMENTS: In the absence of a history or active diagnosis of lung cancer, it is recommended that this patient with emphysema be evaluated for enrollment in a low dose CT lung cancer screening program. Laboratory Results WBC 12.1 10^3/uL (4.0-10.0) H 08/01/22 13:40 RBC 3.20 10^6/uL (4.1-5.3) L 08/01/22 13:40 Hgb 10.0 g/dL (11.5-15.3) L 08/01/22 13:40 Hct 30.5 % (37.0-47.0) L 08/01/22 13:40 MCV 95.3 fl (81-99) 08/01/22 13:40 MCH 31.3 pg (28.0-34.0) 08/01/22 13:40 MCHC 32.8 g/dL (30.0-36.0) 08/01/22 13:40 RDW 13.8 % (12.1-15.1) 08/01/22 13:40 Plt Count 368 10^3/cmm (130-400) 08/01/22 13:40 MPV 9.7 fL (7.4-10.4) 08/01/22 13:40 Neut % (Auto) 79.8 % 08/01/22 13:40 Lymph % (Auto) 12.5 % 08/01/22 13:40 [place] % (Auto) 6.6 % 08/01/22 13:40 Eos % (Auto) 0.2 % 08/01/22 13:40 Baso % (Auto) 0.2 % 08/01/22 13:40 Neut # (Auto) 9.64 10^3/uL (1.8-7.7) H 08/01/22 13:40 Lymph # (Auto) 1.5 10^3/uL (0.8-4.8) 08/01/22 13:40 [place] # (Auto) 0.8 10^3/uL (0.2-0.9) 08/01/22 13:40 Eos # (Auto) 0.0 10^3/uL (0.0-0.8) 08/01/22 13:40 Baso # (Auto) 0.0 10^3/uL (0.0-0.1) 08/01/22 13:40 Nucleated RBC % (auto) 0.2 % 08/01/22 13:40 Nucleated RBCs # 0.0 /100WBC 08/01/22 13:40 Sodium 129 mmol/L (136-145) L 08/01/22 13:40 Potassium 3.0 mmol/L (3.5-5.1) L 08/01/22 13:40 Chloride 88 mmol/L (98-107) L 08/01/22 13:40 Carbon Dioxide 27 mmol/L (22-29) 08/01/22 13:40 Anion Gap 17.0 (5-19) 08/01/22 13:40 BUN 21 mg/dL (8-23) 08/01/22 13:40 Creatinine 1.0 mg/dL (0.5-0.9) H 08/01/22 13:40 GFR Calculation 55.6 mL/min (90-130) L 08/01/22 13:40 Glucose 78 mg/dL (65-115) 08/01/22 13:40 Calculated Osmolality 270 mOsm/kg (285-295) L 08/01/22 13:40 Lactate 1.6 mmol/L (0.5-2.2) 08/01/22 13:40 Calcium 9.6 mg/dL (8.5-10.5) 08/01/22 13:40 Total Bilirubin 0.5 mg/dL (0.15-1.2) 08/01/22 13:40 AST 25 U/L (0-32) 08/01/22 13:40 ALT 13 U/L (0-33) 08/01/22 13:40 Alkaline Phosphatase 207 U/L (35-105) H 08/01/22 13:40 Total Protein 6.4 g/dL (6.6-8.7) L 08/01/22 13:40 Albumin 2.7 g/dL (3.5-5.2) L 08/01/22 13:40 Globulin 3.7 g/dL (1.3-4.6) 08/01/22 13:40 Urine Color Yellow (Yellow) 08/01/22 13:40 Urine Appearance Clear (CLEAR) 08/01/22 13:40 Urine pH 5 (5-7) 08/01/22 13:40 Ur Specific [place] 1.015 (1.005-1.030) 08/01/22 13:40 Urine Protein Trace (Negative) 08/01/22 13:40 Urine Glucose (UA) Norm (Normal) 08/01/22 13:40 Urine Ketones 1+ (Negative) H 08/01/22 13:40 Urine Blood Neg (Negative) 08/01/22 13:40 Urine Nitrate Negative (Negative) 08/01/22 13:40 Urine Bilirubin 1+ (Negative) H 08/01/22 13:40 Urine Urobilinogen Norm mg/dL (Negative) 08/01/22 13:40 Ur Leukocyte Esterase Negative (Negative) 08/01/22 13:40 Urine RBC None /hpf (0-2) 08/01/22 13:40 Urine WBC 0-4 /hpf (0-5) H 08/01/22 13:40 Ur Squamous Epith Cells Rare /hpf (0-5) 08/01/22 13:40 Amorphous Sediment Not Reportable 08/01/22 13:40 Urine Bacteria Trace /hpf (NONE) 08/01/22 13:40 Urine Mucus Trace /hpf 08/01/22 13:40 Discharge Plan Discharge Patient Disposition: Admitted As Inpatient Admit Provider: Jonny Kohli Clinical Impression: Ileus Condition: Stable Discharge Diet: Advance as tolerated, As Directed and Full LIquid Discharge Activity: Resume usual activity and Increase activity as tolerated Coding Level of Care Code ED Drawing In Machine Tender for Chg Fwd Documented by User: Papa Reddy MD 08/13/22 08:15 HPI - Back Pain/Injury General: Chief Complaint: Back Pain/Injury Stated Complaint: BACK PAIN; CONSTIPATION Time Seen by Provider: 08/01/22 12:58 PFSH ED PFSH: Medical History Anxiety Back pain with history of spinal surgery GERD (gastroesophageal reflux disease) History of stomach ulcers Hx of cardiac murmur Hypertension Surgical History History of tonsillectomy Hx of bladder repair surgery Hx of cholecystectomy Hx of hysterectomy Previous back surgery Family History Father CAD (coronary artery disease) Mother No problems noted. Social History Smoking and tobacco status: never smoked Alcohol intake: never Course Vital Signs: Vital signs: Vital Signs Temperature 97.8 F 08/06/22 17:48 Pulse Rate 74 08/06/22 17:48 Respiratory Rate 16 08/06/22 17:48 Blood Pressure 136/81 08/06/22 17:48 Pulse Oximetry 93 08/06/22 17:48 Oxygen Delivery Me thod 08/06/22 16:05 Oxygen Flow Rate 2 08/06/22 08:00 MDM - Back Pain/Injury Medical Decision Making Patient was seen in the emergency department for complaints of low back pain that radiates to bilateral lower extremities, abdominal distention, belching, and constipation. In the emergency department I obtained a chest x-ray due to baseline respiratory status and audible wheezes. I ordered DuoNeb q. 20 minutes x 3. I have asked the nurse to redress the surgical site. Respiratory status has improved patient is resting quietly. I have obtained an acute abdominal series to assess for small bowel obstruction. Which reveals ileus without obstruction. I have ordered Zofran, Norflex, Toradol, fentanyl for her pain and nausea. IV fluids been started and patient's been made n.p.o. Urinalysis has been obtained through an in/out cath. Patient has a mild leukocytosis and mild anemia. Her hemoglobin does not require transfusion at this time. Chemistry panel reveals a potassium of 3.0 and sodium of 129. Has been given a bolus of normal saline and potassium. Reveals moderate ileus without obstruction. Patient is unable to tolerate p.o. fluids. Hospitalist, Dr Kohli, has been consulted and Dr. Nagy will be notified I discussed this case with Camryn OGDEN. I reviewed documentation, labs, imaging. Papa Reddy MD Emergency Medicine Labs 08/01/22 13:40 08/01/22 13:40 Radiology Impressions Chest/Abdomen X-ray 08/01/22 13:12 IMPRESSION: 1. moderate ileus 2. Negative for acute GI abnormality 3. Extensive orthopedic hardware lumbar spine 4. Negative chest examination Abdomen/Pelvis CT 08/03/22 10:38 IMPRESSION: 1. No sign of bowel obstruction or an ileus. 2. No large volume ascites. Chest CTA 08/05/22 17:45 IMPRESSION: 1. No pulmonary embolus. 2. Small bilateral pleural effusions with adjacent lower lobe consolidation. Correlate for pneumonia. COMMENTS: In the absence of a history or active diagnosis of lung cancer, it is recommended that this patient with emphysema be evaluated for enrollment in a low dose CT lung cancer screening program. Laboratory Results WBC 12.1 10^3/uL (4.0-10.0) H 08/01/22 13:40 RBC 3.20 10^6/uL (4.1-5.3) L 08/01/22 13:40 Hgb 10.0 g/dL (11.5-15.3) L 08/01/22 13:40 Hct 30.5 % (37.0-47.0) L 08/01/22 13:40 MCV 95.3 fl (81-99) 08/01/22 13:40 MCH 31.3 pg (28.0-34.0) 08/01/22 13:40 MCHC 32.8 g/dL (30.0-36.0) 08/01/22 13:40 RDW 13.8 % (12.1-15.1) 08/01/22 13:40 Plt Count 368 10^3/cmm (130-400) 08/01/22 13:40 MPV 9.7 fL (7.4-10.4) 08/01/22 13:40 Neut % (Auto) 79.8 % 08/01/22 13:40 Lymph % (Auto) 12.5 % 08/01/22 13:40 [place] % (Auto) 6.6 % 08/01/22 13:40 Eos % (Auto) 0.2 % 08/01/22 13:40 Baso % (Auto) 0.2 % 08/01/22 13:40 Neut # (Auto) 9.64 10^3/uL (1.8-7.7) H 08/01/22 13:40 Lymph # (Auto) 1.5 10^3/uL (0.8-4.8) 08/01/22 13:40 [place] # (Auto) 0.8 10^3/uL (0.2-0.9) 08/01/22 13:40 Eos # (Auto) 0.0 10^3/uL (0.0-0.8) 08/01/22 13:40 Baso # (Auto) 0.0 10^3/uL (0.0-0.1) 08/01/22 13:40 Nucleated RBC % (auto) 0.2 % 08/01/22 13:40 Nucleated RBCs # 0.0 /100WBC 08/01/22 13:40 Sodium 129 mmol/L (136-145) L 08/01/22 13:40 Potassium 3.0 mmol/L (3.5-5.1) L 08/01/22 13:40 Chloride 88 mmol/L (98-107) L 08/01/22 13:40 Carbon Dioxide 27 mmol/L (22-29) 08/01/22 13:40 Anion Gap 17.0 (5-19) 08/01/22 13:40 BUN 21 mg/dL (8-23) 08/01/22 13:40 Creatinine 1.0 mg/dL (0.5-0.9) H 08/01/22 13:40 GFR Calculation 55.6 mL/min (90-130) L 08/01/22 13:40 Glucose 78 mg/dL (65-115) 08/01/22 13:40 Calculated Osmolality 270 mOsm/kg (285-295) L 08/01/22 13:40 Lactate 1.6 mmol/L (0.5-2.2) 08/01/22 13:40 Calcium 9.6 mg/dL (8.5-10.5) 08/01/22 13:40 Total Bilirubin 0.5 mg/dL (0.15-1.2) 08/01/22 13:40 AST 25 U/L (0-32) 08/01/22 13:40 ALT 13 U/L (0-33) 08/01/22 13:40 Alkaline Phosphatase 207 U/L (35-105) H 08/01/22 13:40 Total Protein 6.4 g/dL (6.6-8.7) L 08/01/22 13:40 Albumin 2.7 g/dL (3.5-5.2) L 08/01/22 13:40 Globulin 3.7 g/dL (1.3-4.6) 08/01/22 13:40 Urine Color Yellow (Yellow) 08/01/22 13:40 Urine Appearance Clear (CLEAR) 08/01/22 13:40 Urine pH 5 (5-7) 08/01/22 13:40 Ur Specific [place] 1.015 (1.005-1.030) 08/01/22 13:40 Urine Protein Trace (Negative) 08/01/22 13:40 Urine Glucose (UA) Norm (Normal) 08/01/22 13:40 Urine Ketones 1+ (Negative) H 08/01/22 13:40 Urine Blood Neg (Negative) 08/01/22 13:40 Urine Nitrate Negative (Negative) 08/01/22 13:40 Urine Bilirubin 1+ (Negative) H 08/01/22 13:40 Urine Urobilinogen Norm mg/dL (Negative) 08/01/22 13:40 Ur Leukocyte Esterase Negative (Negative) 08/01/22 13:40 Urine RBC None /hpf (0-2) 08/01/22 13:40 Urine WBC 0-4 /hpf (0-5) H 08/01/22 13:40 Ur Squamous Epith Cells Rare /hpf (0-5) 08/01/22 13:40 Amorphous Sediment Not Reportable 08/01/22 13:40 Urine Bacteria Trace /hpf (NONE) 08/01/22 13:40 Urine Mucus Trace /hpf 08/01/22 13:40 Discharge Plan Discharge Patient Disposition: Admitted As Inpatient Admit Provider: Jonny Kohli Clinical Impression: Ileus Condition: Stable Discharge Diet: Advance as tolerated, As Directed and Full LIquid Discharge Activity: Resume usual activity and Increase activity as tolerated Coding Level of Care Code ED Drawing In Machine Tender for Renny Pretty
[2022-08-01] MEDS: fentaNYL 50 mcg/mL INJ 2mL IVP (13:54)
[2022-08-01] MEDS: orphenadrine 30 mg/mL Inj 2 mL 60 MG IVP (13:55)
[2022-08-01] MEDS: ketorolac 30 mg/mL INJ 15 MG IVP (13:55)
[2022-08-01] MEDS: sodium chloride 0.9% 500 ML 999 ML IV ×2 (13:55→15:41)
--- NOTE | 2022-08-01 13:59 | PC.NURSE ---
3 STERISTRIPS PLACED ON PT LOWER BACK OVER INCISION SITE PER PROVIDER MCTEER ORDER.
[2022-08-01 14:08] LABS: Basophils % 0.2 %; Eosinophils % 0.2 %; Hematocrit 30.5 % (37.0-47.0); Lymphocytes # 1.5 10^3/uL (0.8-4.8); Lymphocytes % 12.5 %; Mean Corpuscular HGB Conc 32.8 g/dL (30.0-36.0); Mean Corpuscular Hemoglobin 31.3 pg (28.0-34.0); Mean Corpuscular Volume 95.3 fl (81-99); Mean Platelet Volume 9.7 fL (7.4-10.4); Monocytes # 0.8 10^3/uL (0.2-0.9); Monocytes % 6.6 %; Neutrophils # 9.64 10^3/uL (1.8-7.7); Neutrophils % 79.8 %; Nucleated Red Blood Cells % 0.2 %; Platelet Count 368 10^3/cmm (130-400); Red Cell Distribution Width 13.8 % (12.1-15.1); White Blood Count 12.1 10^3/uL (4.0-10.0)
[2022-08-01 14:27] LABS: Add Urine Microscopic? YES; Bilirubin Urine 1+ (Negative); Blood Urine Neg (Negative); Glucose Urine UA Norm (Normal); Ketones Urine 1+ (Negative); Leukocyte Esterase Urine Negative (Negative); Nitrate Urine Negative (Negative); Protein Urine Trace (Negative); Specific Gravity, Urine 1.015 (1.005-1.030); Urine Appearance Clear (CLEAR); Urine Color Yellow (Yellow); Urobilinogen Urine Norm (Negative); pH Urine 5 (5-7)
[2022-08-01 14:29] LABS: Add Urine Culture? No; Bacteria Urine TRACE /hpf; Mucus Urine TRACE /hpf; Squamous Epithelial Cell Urine RARE /hpf (0-5); WBC Urine 0-4 /hpf (0-5)
[2022-08-01 14:30] LABS: Alanine Aminotransferase 13 U/L (0-33); Albumin Level 2.7 g/dL (3.5-5.2); Alkaline Phosphatase 207 U/L (35-105); Aspartate Amino Transferase 25 U/L (0-32); Blood Urea Nitrogen 21 mg/dL (8-23); Calcium 9.6 mg/dL (8.5-10.5); Carbon Dioxide 27 mmol/L (22-29); Chloride 88 mmol/L (98-107); Globulin 3.7 g/dL (1.3-4.6); Glomerular Filtration Rate 55.6 mL/min (90-130); Glucose 78 mg/dL (65-115); Lactate (Lactic Acid level) 1.6 mmol/L (0.5-2.2); Osmolality Calculated 270 mOsm/kg (285-295); Sodium 129 mmol/L (136-145); Total Bilirubin 0.5 mg/dL (0.15-1.2); Total Protein 6.4 g/dL (6.6-8.7)
[2022-08-01] MEDS: ipratropium-albuterol 3 mL Neb INHALATION ×3 (14:56→14:57)
[2022-08-01] MEDS: potassium chloride ER 20 mEq Tablet PO (15:42)
--- NOTE | 2022-08-01 16:45 | PM.HP ---
Providers/Chief Complaint Primary Care Provider: HENOK Caicedo Chief Complaint: BACK PAIN; CONSTIPATION History of Present Illness Lois Russo is a 67 year old female with past medical history of hypertension, chronic low back pain status post, recent lumbar spinal fusion discharged on July 28, came in today with chief complaint of postoperative back pain, bilateral lower extremity pain, abdominal distention and nausea. Post discharge Patient has been on narcotics for pain control, she had not had any bowel movement in the last 6 days. X-rays abdomen has shown: Ileus without obstruction Pertinent labs includes: WBC 12.1, H&H 10 and 30,plt; 368 , serum sodium 129 serum potassium 3, BUN 21, serum creatinine 1, Plan is to place NG tube and prepared foods supervisor to low intermittent suction. Review of Systems General: Reports: 10 or more systems reviewed and unremarkable except in HPI and below Const: Denies: fever(s), chills, body aches, change in appetite or diaphoresis Card: Denies: palpitations, edema, swelling of feet/ankles, dyspnea on exertion, orthopnea or leg pain with exertion Resp: Denies: dyspnea, productive cough, wheezing or pain on inspiration GI: Reports: abdominal pain, nausea and constipation; Denies: vomiting or diarrhea : Denies: flank pain Musc: Denies: back pain, extremity pain or extremity swelling Neuro: Denies: headache(s), difficulty walking or confusion Medications/Allergies Home Medications Medication Instructions Recorded Confirmed Last Taken Type potassium chloride 10 mEq 10 meq PO DAILY #90 tabs 05/19/22 08/01/22 07/31/22 Rx tablet,extended release(part/cryst) rabeprazole 20 mg tablet,delayed 20 mg PO DAILY #90 tabs 05/19/22 08/01/22 07/31/22 Rx release Bone Growth Stimulator [id number] #1 ea 07/13/22 08/01/22 Unknown Rx hydrocodone 10 mg-acetaminophen 1 tab PO Q4H PRN pain 7 days #40 07/28/22 08/01/22 Unknown Rx 325 mg tablet tabs biotin 1 mg capsule 1 mg PO DAILY 08/01/22 08/01/22 07/31/22 History budesonide 3 mg 6 mg PO DAILY 08/01/22 08/01/22 07/31/22 History capsule,delayed,extended release cholecalciferol (vitamin D3) 50 50 mcg PO DAILY 08/01/22 08/01/22 07/31/22 History mcg (2,000 unit) tablet (Vitamin D3) citalopram 20 mg tablet 20 mg PO DAILY 08/01/22 08/01/22 07/31/22 History diltiazem HCl 300 mg 300 mg PO DAILY 08/01/22 08/01/22 07/31/22 History capsule,extended release 24 hr hydrochlorothiazide 25 mg tablet 25 mg PO BEDTIME 08/01/22 08/01/22 07/31/22 History lisinopril 40 mg tablet 40 mg PO DAILY 08/01/22 08/01/22 07/31/22 History metoprolol succinate 100 mg 100 mg PO BEDTIME 08/01/22 08/01/22 07/31/22 History tablet,extended release 24 hr Allergies Allergy/AdvReac Type Severity Reaction Status Date / Time nitrofurantoin AdvReac sob Verified 06/23/22 13:56 [From Macrobid] PFSH Acute PFSH: Medical History Anxiety Back pain with history of spinal surgery GERD (gastroesophageal reflux disease) History of stomach ulcers Hx of cardiac murmur Hypertension Surgical History History of tonsillectomy Hx of bladder repair surgery Hx of cholecystectomy Hx of hysterectomy Previous back surgery Family History Father CAD (coronary artery disease) Mother No problems noted. Social History Smoking and tobacco status: never smoked Alcohol intake: never Vitals/I&O/Wt Last Vital Signs Pulse 66 08/01/22 15:02 Resp 16 08/01/22 14:50 BP 118/64 08/01/22 12:58 Pulse Ox 99 08/01/22 14:50 O2 Del Method 08/01/22 14:50 O2 Flow Rate 2 08/01/22 14:50 Weight last 48 hrs Weight 77.111 kg Physical Exam Const: COMMON NORMALS: patient oriented x3 HENMT: COMMON NORMALS: normocephalic and atraumatic HEAD & SCALP: normocephalic and atraumatic Resp: COMMON NORMALS: clear to auscultation bilaterally EFFORT & INSPECTION: Yes symmetric chest movement AUSCULTATION: clear to auscultation bilaterally Cardio: COMMON NORMALS: regular rate, regular rhythm, S1 normal heart sound present, S2 normal heart sound present, No gallops present (Cardio), No murmurs present (Cardio), No rub (Cardio) and Peripheral pulses 2+ throughout RATE: regular rate RHYTHM: regular rhythm HEART SOUNDS: S1 normal heart sound present and S2 normal heart sound present PERIPHERAL PULSES: Peripheral pulses 2+ throughout GI: PALPATION: Yes Soft to palpation and Yes No hepatosplenomegaly present RECTAL EXAM: deferred OTHER: Abdominal distention present with hypoactive bowel sounds Extremity: COMMON NORMALS: no clubbing, cyanosis or edema and no pedal edema Neuro: COMMON NORMALS: patient oriented x3 Data 08/01/22 13:40 08/01/22 13:40 A&P Assessment and plan (1) Ileus: (2) Status post lumbar spinal fusion: (3) Hypertension: Qualifiers: Hypertension type: unspecified Qualified Code(s): I10 - Essential (primary) hypertension (4) Low back pain: (5) Hyponatremia: (6) Hypokalemia: (7) Leukocytosis: (8) Anemia: Plan 67 year old female with past medical history of hypertension, chronic low back pain status post, recent lumbar spinal fusion discharged on July 28, came in today with chief complaint of postoperative back pain, bilateral lower extremity pain, abdominal distention and nausea. Assessment: Moderate ileus: NG tube insertion, and placement to low intermittent suction N.p.o. Pain control Antiemetics for nausea Hypovolemic hyponatremia: Admission serum sodium was 129 Currently on normal saline 100 cc an hour Monitor BMP Hypokalemia: Monitor and replace serum potassium History of hypertension: We will resume home medications once he is able to take p.o. For now monitor blood pressure, and use IV antihypertensive as needed CODE STATUS: Full code DVT prophylaxis on SCD: Attestations Medical Necessity Statement*: Patient is still in hospital for the management of ileus. Anticipated length of stay greater 2 midnight Coding Level of Care Code 99374 Diagnoses Ileus K56.7 Status post lumbar spinal fusion Z98.1 Hypertension I10 Hypertension type: unspecified Low back pain M54.50 Hyponatremia E87.1 Hypokalemia E87.6 Leukocytosis D72.829 Anemia D64.9
[2022-08-01] MEDS: sodium chlor 0.9% + KCl 20 mEq 20 MEQ/1,000 ML BAG 100 MEQ IV (17:00)
[2022-08-01] MEDS: docusate sodium 100 mg Capsule PO (20:50)
[2022-08-01] MEDS: cetylpyridinium Lozenge 1 EACH MUCOUS MEM (22:40)
[2022-08-01] MEDS: morphine 4 mg/mL SDV 1 mL 2 MG IVP (22:46)
[2022-08-02] VITALS (10 sets, daily range): BP systolic 121–159; BP diastolic 71–94; PULSE 77–92; RESP 14–21; TEMP 36.7–37.1; O2SAT 91–97
[2022-08-02] MEDS: sodium chlor 0.9% + KCl 20 mEq 20 MEQ/1,000 ML BAG 100 MEQ IV ×3 (02:14→22:39)
[2022-08-02] MEDS: cetylpyridinium Lozenge 1 EACH MUCOUS MEM (02:44)
[2022-08-02 03:31] LABS: Basophils % 0.3 %; Eosinophils # 0.1 10^3/uL (0.0-0.8); Eosinophils % 0.7 %; Hematocrit 26.5 % (37.0-47.0); Hemoglobin 8.6 g/dL (11.5-15.3); Lymphocytes # 1.7 10^3/uL (0.8-4.8); Lymphocytes % 19.7 %; Mean Corpuscular HGB Conc 32.5 g/dL (30.0-36.0); Mean Corpuscular Volume 95.7 fl (81-99); Mean Platelet Volume 9.7 fL (7.4-10.4); Monocytes # 0.5 10^3/uL (0.2-0.9); Monocytes % 5.8 %; Neutrophils # 6.25 10^3/uL (1.8-7.7); Neutrophils % 72.7 %; Nucleated Red Blood Cells % 0.2 %; Platelet Count 329 10^3/cmm (130-400); Red Blood Count 2.77 10^6/uL (4.1-5.3); White Blood Count 8.6 10^3/uL (4.0-10.0)
[2022-08-02] MEDS: morphine 4 mg/mL SDV 1 mL 2 MG IVP ×4 (03:52→19:44)
[2022-08-02 03:58] LABS: Anion Gap 15.2 (5-19); Blood Urea Nitrogen 17 mg/dL (8-23); Calcium 8.4 mg/dL (8.5-10.5); Carbon Dioxide 23 mmol/L (22-29); Chloride 96 mmol/L (98-107); Glomerular Filtration Rate 62.8 mL/min (90-130); Glucose 47 mg/dL (65-115); Magnesium 1.7 mg/dL (1.7-2.3); Osmolality Calculated 271 mOsm/kg (285-295); Potassium 3.2 mmol/L (3.5-5.1); Sodium 131 mmol/L (136-145)
[2022-08-02] MEDS: docusate sodium 100 mg Capsule PO ×2 (09:11→17:48)
[2022-08-02] MEDS: lidocaine 1% 5 ML in potassium chloride premix 100 ML 26.25 ML IV (09:20)
--- NOTE | 2022-08-02 13:45 | PM.PN ---
Subjective Subjective: Patient is currently passing flatus, has not had any bowel movement, hyponatremia and hypokalemia is improving, has denied any significant abdominal pain, no vomiting. Medications: Medication Review Details: Generic Name Dose Route Start Last Admin Trade Name Freq PRN Reason Stop Dose Admin Benzocaine 1 each 08/01/22 22:09 08/02/22 02:44 Cetylpyridinium Lozenge MUCOUS MEM 1 each Q2H PRN Administration SORE THROAT Docusate Sodium 100 mg 08/01/22 18:00 08/02/22 09:11 Docusate Sodium 100 Mg Capsule PO 100 mg BID JONO Administration Potassium Chloride /Sodium Chloride 20 meq in 1,000 m ls @ 100 mls/hr 08/01/22 16:45 08/02/22 12:44 Sodium Chlor 0.9 % + Kcl 20 Meq IV 100 mls/hr .Q10H JONO Administration Morphine Sulfate 2 mg 08/01/22 16:39 08/02/22 10:01 Morphine 4 Mg/Ml Sdv 1 Ml IVP 2 mg Q4H PRN Administration SEVERE PAIN Vitals/I&O/Wt Last Vital Signs Temp 98.0 F 08/02/22 11:54 Pulse 87 08/02/22 11:54 Resp 18 08/02/22 11:54 BP 149/77 08/02/22 11:54 Pulse Ox 96 08/02/22 11:54 O2 Del Method 08/02/22 11:54 O2 Flow Rate 2 08/02/22 08:00 08/01/22 08/02/22 08/02/22 22:59 06:59 14:59 Intake Total 1000 / 1000 923.333 / 0745.839 1578 / 1105 Output Total 0 / 0 1250 / 1250 Balance 1000 / 1000 -326.667 / 129.854 5854 / 1105 Weight last 48 hrs Weight 77.111 kg Physical Exam Const: COMMON NORMALS: patient oriented x3 HENMT: COMMON NORMALS: normocephalic and atraumatic HEAD & SCALP: normocephalic and atraumatic Resp: COMMON NORMALS: clear to auscultation bilaterally EFFORT & INSPECTION: Yes symmetric chest movement AUSCULTATION: clear to auscultation bilaterally Cardio: COMMON NORMALS: regular rate, regular rhythm, S1 normal heart sound present, S2 normal heart sound present, No gallops present (Cardio), No murmurs present (Cardio), No rub (Cardio) and Peripheral pulses 2+ throughout RATE: regular rate RHYTHM: regular rhythm HEART SOUNDS: S1 normal heart sound present and S2 normal heart sound present PERIPHERAL PULSES: Peripheral pulses 2+ throughout GI: COMMON NORMALS: Soft to palpation and No hepatosplenomegaly present PALPATION: Yes Soft to palpation and Yes No hepatosplenomegaly present RECTAL EXAM: deferred OTHER: Abdominal distention present with hypoactive bowel sounds Extremity: COMMON NORMALS: no clubbing, cyanosis or edema and no pedal edema Neuro: COMMON NORMALS: patient oriented x3 Urinary Catheter Management: Simmons: Cath Placed During This Visit: yes Reason for Continuing Indwelling Catheter: Acute Urinary Retention or Obstruction Urinary Catheter Date of Insertion: 08/02/22 Urinary Catheter Time of Insertion: 02:40 Data 08/02/22 02:34 08/02/22 02:34 A&P Assessment and plan (1) Ileus: (2) Status post lumbar spinal fusion: (3) Hypertension: Qualifiers: Hypertension type: unspecified Qualified Code(s): I10 - Essential (primary) hypertension (4) Low back pain: (5) Hyponatremia: (6) Hypokalemia: (7) Leukocytosis: (8) Anemia: Plan 67 year old female with past medical history of hypertension, chronic low back pain status post, recent lumbar spinal fusion discharged on July 28, came in today with chief complaint of postoperative back pain, bilateral lower extremity pain, abdominal distention and nausea. Assessment: Moderate ileus: NG tube insertion, and placement to low intermittent suction N.p.o. Pain control Antiemetics for nausea Hypovolemic hyponatremia: Admission serum sodium was 129 Currently on normal saline 100 cc an hour Monitor BMP Leukocytosis: Likely secondary dehydration Monitor CBC for now. Hypokalemia: Monitor and replace serum potassium History of hypertension: We will resume home medications once he is able to take p.o. For now monitor blood pressure, and use IV antihypertensive as needed CODE STATUS: Full code DVT prophylaxis on SCD: Attestations Medical Necessity Statement*: Needs to be in hospital for management of ileus. Coding Level of Care Code 84154 Diagnoses Ileus K56.7 Status post lumbar spinal fusion Z98.1 Hypertension I10 Hypertension type: unspecified Low back pain M54.50 Hyponatremia E87.1 Hypokalemia E87.6 Leukocytosis D72.829 Anemia D64.9
[2022-08-03] VITALS (10 sets, daily range): BP systolic 165–187; BP diastolic 73–104; PULSE 93–98; RESP 16–20; TEMP 36.6–37.2; O2SAT 91–97
[2022-08-03] MEDS: morphine 4 mg/mL SDV 1 mL 2 MG IVP ×2 (00:37→07:36)
[2022-08-03 05:36] LABS: Basophils % 0.5 %; Eosinophils % 0.3 %; Hematocrit 27.4 % (37.0-47.0); Hemoglobin 8.6 g/dL (11.5-15.3); Lymphocytes # 1.2 10^3/uL (0.8-4.8); Lymphocytes % 13.6 %; Mean Corpuscular HGB Conc 31.4 g/dL (30.0-36.0); Mean Corpuscular Hemoglobin 30.4 pg (28.0-34.0); Mean Corpuscular Volume 96.8 fl (81-99); Mean Platelet Volume 9.3 fL (7.4-10.4); Monocytes # 0.6 10^3/uL (0.2-0.9); Monocytes % 6.5 %; Neutrophils # 6.75 10^3/uL (1.8-7.7); Neutrophils % 78.1 %; Nucleated Red Blood Cells % 0 %; Platelet Count 315 10^3/cmm (130-400); Red Blood Count 2.83 10^6/uL (4.1-5.3); Red Cell Distribution Width 14.1 % (12.1-15.1); White Blood Count 8.7 10^3/uL (4.0-10.0)
[2022-08-03 05:53] LABS: Anion Gap 16.2 (5-19); Blood Urea Nitrogen 9 mg/dL (8-23); Calcium 8.3 mg/dL (8.5-10.5); Carbon Dioxide 23 mmol/L (22-29); Chloride 103 mmol/L (98-107); Glomerular Filtration Rate 100.3 mL/min (90-130); Glucose 51 mg/dL (65-115); Osmolality Calculated 282 mOsm/kg (285-295); Potassium 4.2 mmol/L (3.5-5.1); Sodium 138 mmol/L (136-145)
--- NOTE | 2022-08-03 06:36 | PM.PN ---
Subjective Subjective: POD 7 Patient states she has been having a lot of drainage from her thoracolumbar incisional site. She has not been able to have a bowel movement. Denies any headaches. Reports back pain. Vitals/I&O/Wt Last Vital Signs Temp 98.2 F 08/03/22 03:30 Pulse 94 08/03/22 03:30 Resp 17 08/03/22 03:30 BP 168/79 08/03/22 03:30 Pulse Ox 92 08/03/22 03:30 O2 Del Method 08/03/22 03:30 O2 Flow Rate 2 08/03/22 03:30 08/02/22 08/02/22 08/03/22 14:59 22:59 06:59 Intake Total 1105 / 1105 991.667 / 2096.667 Output Total 400 / 400 100 / 500 350 / 850 Balance 705 / 705 891.667 / 1596.667 -350 / 1246.667 Weight last 48 hrs Weight 170 lb Physical Exam Narrative: Patient presents alert and oriented x3 with a good general appearance normal mood and affect. Normal coordination normal stability. Mild tenderness around the incisional site with the incision appear to have moderate bloody drainage. No signs of infection. Patient denies any fevers or chills. 4/5 motor strength both lower extremities with negative straight leg raise bilaterally. Calves are supple no medial thigh tenderness. Pulses are 1+ at the dorsalis pedis and posterior tibial region. Good capillary refill throughout normal sensation light touch both lower extremities. NG tube present with contents in the tube appearing very dark. Urinary Catheter Management: Simmons: Cath Placed During This Visit: yes Reason for Continuing Indwelling Catheter: Acute Urinary Retention or Obstruction Urinary Catheter Date of Insertion: 08/02/22 Urinary Catheter Time of Insertion: 02:40 Data 08/03/22 05:18 08/03/22 05:18 A&P Assessment and plan (1) Fusion of spine, thoracolumbar region: Discussed with the nurse to place a Silverlon island dressing on the incisional site with ABD pads to offer compression followed by Medipore tape. NG tube appears very dark, would recommend a guaiac stool for occult blood. Continue to mobilize with physical therapy. Encourage incentive spirometer for pulmonary toilet. (2) Anemia: Attestations Medical Necessity Statement*: Defer to medical team Coding Level of Care Code Acute Code for Chg Fwd Diagnoses Fusion of spine, thoracolumbar region M43.25 Anemia D64.9
[2022-08-03] MEDS: docusate sodium 100 mg Capsule PO ×2 (07:36→17:08)
[2022-08-03] MEDS: sodium chlor 0.9% + KCl 20 mEq 20 MEQ/1,000 ML BAG 100 MEQ IV (07:44)
[2022-08-03] MEDS: ondansetron 2 mg/ML SDV 2 mL 4 MG IVP (07:44)
--- NOTE | 2022-08-03 10:24 | PC.CHAP ---
Pastoral Care Encounter/Spiritual Assessment Type of Contact [] Declined clinic nurse visit [] Patient/Family/Request visit [] Outpatient visit [] Follow-up visit [] Physician referral [] Code/Alert [x] Routine visit [] Staff referral [] Actively dying [] Patient sleeping [] Family support [] [] Out of room [] Palliative care [] [] Receiving care in room [] Pre-surgical visit [] Trauma [] Long length of stay [] ICU visit [] Other: Relational/Emotional Strength [x] Patient feels connected with others/family/visitors/staff [] Distress [] Loneliness/isolation [] Abandonment Spirituality of Patient [x] Person of Christine [] Attends Yarsani of their Christine [x] Believes in Prayer [] Reads Bible or Pentecostal materials [] There are Spiritual issues to be addressed Green [employer] Attendant Interventions [x] Prayer [] Active listening [] Non-anxious presence [] Spiritual/emotional support [] Crisis/trauma care [] Spiritual counseling [] Bereavement support [] Provided bereavement packet [] Provided Bible/devotional materials [] Provided toy/stuffed animal, coloring book to patient or family member [] Provided Communion [] Anointing/[place] [] Salvation [x] Completed spiritual assessment [] Other: Impact on Illness or Injury [] Angry [] Fearful [] Anxious [] Often cries [] Exhaustion [] Unable to work [] Unable to attend roman catholic [] Unable to walk/stand [] Unable to read [] Unable to drive [] Unable to eat/drink [] Unable to sleep [] Unable to be with family [] Patient intubated [] Other: Summary Time spent with patient 10 min
--- NOTE | 2022-08-03 10:38 | CTR_ITS ---
PROCEDURE INFORMATION: Exam: CT Abdomen And Pelvis Without Contrast Exam date and time: 08/03/2022 12:30 PM Age: 67 years old Clinical indication: Constipation; Prior surgery; Surgery type: Bladder repair, spinal fusion. Gb, hyst; Additional info: N/v, constipation, abd distention TECHNIQUE: Imaging protocol: Computed tomography of the abdomen and pelvis without contrast. Radiation optimization: All CT scans at this facility use at least one of these dose optimization techniques: automated exposure control; mA and/or kV adjustment per patient size (includes targeted exams where dose is matched to clinical indication); or iterative reconstruction. REPORTING DATA: Count of CT and Cardiac NM exams in prior 12 months: This patient has received [address] and 0 known cardiac nuclear medicine studies in the 12 months prior to the current study. COMPARISON: CT chest abdpel w/*[id number] 04/04/2022 4:40 PM RADIATION DOSE METRICS: Total DLP (mGy-cm): 822.19 FINDINGS: Tubes, catheters and devices: An enteric tube extends down into the stomach. Lungs: Bilateral dependent/compressive atelectasis. Pleural spaces: Partially visualized bilateral small pleural effusions. Liver: Calcified granulomas in a nonenlarged liver. Gallbladder and bile ducts: Prior cholecystectomy. No biliary ductal dilatation allowing for that. Pancreas: No peripancreatic inflammation. No pancreatic ductal dilation. Spleen: Calcified granulomas in a nonenlarged spleen. Adrenal glands: No adrenal mass. Kidneys and ureters: No hydronephrosis or nephrolithiasis. Pre-existing partially calcified exophytic lesion off of the superior pole the right kidney, unchanged in size in the interval. Stomach and bowel: No bowel obstruction, ileus or diverticulitis. Appendix: The appendix has a normal caliber. There is gas in the lumen. No appendiceal wall thickening or periappendiceal inflammation. Intraperitoneal space: Trace fluid fluid in the pelvis. No large volume ascites. No pneumoperitoneum. Vasculature: No abdominal aortic aneurysm. Lymph nodes: No pathologically enlarged lymph nodes. Urinary bladder: The urinary bladder is decompressed with a Simmons catheter. Reproductive: Prior hysterectomy. Bones/joints: Prior posterior annalee fusion from the lower thoracic spine down to the pelvis. Prior lumbar laminectomies. Multilevel disc degeneration in the lower thoracic and lumbar spine. Prior cage placement at L5-S1. Bilateral hip joint degeneration. Soft tissues: Bilateral subcutaneous body wall edema. Pre-existing calcified and prominent distal left iliopsoas muscle, potentially due to prior soft tissue injury. Fluid collection posterior to the lumbar spine and lower thoracic spine. CT/CT abdomen pelvis wo con [id number] IMPRESSION: 1. No sign of bowel obstruction or an ileus. 2. No large volume ascites.
[2022-08-03 11:29] LABS: Iron 10 ug/dL (37-145); Percent Saturation 6.2 % (20-50); Total Iron Binding Capacity 161 mcg/dl; Unsaturated Iron Binding 151 ug/dL (112-347)
[2022-08-03 11:56] LABS: Folate Level > 20.0 ng/mL (4.8-37.3); Vitamin B12 > 2000 pg/mL (232-1245)
[2022-08-03] MEDS: pantoprazole 40 mg SDV 80 MG IVP (12:45)
[2022-08-03] MEDS: metoprolol tartrate 1 mg/1 mL SDV 5 mL 5 MG IVP ×3 (12:45→22:36)
[2022-08-03] MEDS: dextrose 5%-sod chloride 0.9% 1,000 ML 75 ML IV (12:46)
--- NOTE | 2022-08-03 14:20 | P.PN_ITS ---
Subjective Subjective: Hospital course, labs appreciated. On examination patient sitting up in bed with NG tube in place. Dark blackish fluid been present in NG tube. As per nurse patient had output of around 400 to 450 cc overnight. Patient has otherwise remained hemodynamically stable and afebrile. Complaining of back pain. Vitals/I&O/Wt Last Vital Signs Temp 97.8 F 08/03/22 12:00 Pulse 93 08/03/22 12:00 Resp 18 08/03/22 12:00 BP 178/73 08/03/22 12:00 Pulse Ox 93 08/03/22 12:00 O2 Del Method 08/03/22 12:00 O2 Flow Rate 2 08/03/22 03:30 08/02/22 08/03/22 08/03/22 22:59 06:59 14:59 Intake Total 991.667 / 2096.667 908.333 / 908.333 Output Total 100 / 500 350 / 850 700 / 700 Balance 891.667 / 1596.667 -350 / 1246.667 208.333 / 208.333 Physical Exam Const: COMMON NORMALS: patient oriented x3 HENMT: COMMON NORMALS: normocephalic and atraumatic HEAD & SCALP: normo cephalic and atraumatic Resp: COMMON NORMALS: clear to auscultation bilaterally EFFORT & INSPECTION: Yes symmetric chest movement AUSCULTATION: clear to auscultation bilaterally Cardio: COMMON NORMALS: regular rate, regular rhythm, S1 normal heart sound present, S2 normal heart sound present, No gallops present (Cardio), No murmurs present (Cardio), No rub (Cardio) and Peripheral pulses 2+ throughout RATE: r egular rate RHYTHM: regular rhythm HEART SOUNDS: S1 normal heart sound present and S2 normal heart sound present PERIPHERAL PULSES: Peripheral pulses 2+ throughout GI: COMMON NORMALS: Soft to palpation and No hepatosplenomegaly present PALPATION: Yes Soft to palpation and Yes No hepatosplenomegaly present RECTAL EXAM: deferred OTHER: NG tube in place with dark-colored contents. Bowel sounds sluggish Back/Pelvis: OTHER: Surgical dressing present. Not soaked, clean appearing Extremity: COMMON NORMALS: no clubbing, cyanosis or edema and no pedal edema Neuro: COMMON NORMALS: patient oriented x3 Urinary Catheter Management: Simmons: Cath Placed During This Visit: yes Reason for Continuing Indwelling Catheter: Acute Urinary Retention or Obstruction Urinary Catheter Date of Insertion: 08/02/22 Urinary Catheter Time of Insertion: 02:40 Data 08/03/22 05:18 08/03/22 05:18 A&P Assessment and plan (1) Ileus: (2) Anemia: (3) Status post lumbar spinal fusion: Postop day 7. Discharged from the hospital on 07/28. Spinal surgery team on board. Continue with physical therapy and wound care as per spinal surgery team. (4) Constipation: (5) Hypertension: Goal blood pressure less than 140/90 mmHg. Patient takes Cardizem 30 mg, hydrochlorothiazide 25 mg, lisinopril 40 mg, metoprolol 100 mg at home. Currently NPO. For now start patient on IV metoprolol 5 mg every 6 hourly. Will uptitrate and add further medications as per goal blood pressures. Qualifiers: Hypertension type: unspecified Qualified Code(s): I10 - Essential (primary) hypertension (6) Low back pain: (7) Hyponatremia: Resolved. (8) Hypokalemia: Resolved. Continue to monitor and replace. (9) Leukocytosis: Plan 67 year old female with past medical history of hypertension, chronic low back pain status post, recent lumbar spinal fusion discharged on July 28, came in today with chief complaint of postoperative back pain, bilateral lower extremity pain, abdominal distention and nausea. Assessment: Constipation: Most likely in setting of moderate ileus secondary to pain medications: Continue with conservative treatment. Increase NG tube secretions. Continue with NG tube along with low intermittent suction. CT abdomen pelvis without contrast. Protonix 40 mg twice daily, Zofran as needed. Start on Reglan 5 mg every [address] abdomen pelvis results will start on clear liquid diet. Anemia: Concerns for hematemesis. Hemoglobin seems to be stable since yesterday. Hemoglobin on discharge recently on 07/27 was 12.9. Plan on admission. Currently stable at 8.6. Start on IV Protonix as above. Stable to take oral we will start on Carafate. Monitor hemoglobin hematocrit every 12 hourly. CODE STATUS: Full code NPO. Start on clear liquid diet as per CT abdomen pelvis. Protonix OPD prophylaxis SCDs for DVT prophylaxis. No medical prophylaxis. Attestations Medical Necessity Statement*: Requires further hospitalization for management of constipation secondary to moderate ileus in setting of pain medication from recent lumbar spinal fusion with concerns for wound dehiscence Diagnoses Ileus K56.7 Anemia D64.9 Status post lumbar spinal fusion Z98.1 Constipation K59.00 Hypertension I10 Hypertension type: unspecified Low back pain M54.50 Hyponatremia E87.1 Hypokalemia E87.6 Leukocytosis D72.829
[2022-08-03] MEDS: metoclopramide 5 mg/mL SDV 2 mL IVP ×2 (16:19→22:36)
[2022-08-03 18:19] LABS: Hematocrit 28.2 % (37.0-47.0); Hemoglobin 9.2 g/dL (11.5-15.3)
[2022-08-03] MEDS: sucralfate 1 gm/10 mL Oral Liq UDC PO (20:06)
[2022-08-03] MEDS: morphine 4 mg/mL SDV 1 mL 1 MG IVP (20:18)
[2022-08-03 21:12] LABS: Glucose Point of Care 94 mg/dL (70-110)
[2022-08-03] MEDS: pantoprazole 40 mg SDV IVP (22:36)
[2022-08-04] VITALS (8 sets, daily range): BP systolic 112–162; BP diastolic 71–87; PULSE 88–131; RESP 16–18; TEMP 36.6–37.3; O2SAT 90
[2022-08-04] MEDS: morphine 4 mg/mL SDV 1 mL 2 MG IVP (00:45)
[2022-08-04] MEDS: dilTIAZem 60 mg Tablet PO ×2 (00:47→08:31)
[2022-08-04] MEDS: dextrose 5%-sod chloride 0.9% 1,000 ML 75 ML IV ×2 (02:12→16:05)
[2022-08-04 04:02] LABS: Glucose Point of Care 135 mg/dL (70-110)
[2022-08-04] MEDS: metoprolol tartrate 1 mg/1 mL SDV 5 mL 5 MG IVP ×2 (05:35→23:03)
[2022-08-04] MEDS: metoclopramide 5 mg/mL SDV 2 mL IVP ×3 (05:35→22:50)
[2022-08-04 05:44] LABS: Basophils % 0.3 %; Eosinophils % 0.3 %; Hematocrit 29.2 % (37.0-47.0); Hemoglobin 9.5 g/dL (11.5-15.3); Lymphocytes # 1.5 10^3/uL (0.8-4.8); Lymphocytes % 13.3 %; Mean Corpuscular HGB Conc 32.5 g/dL (30.0-36.0); Mean Corpuscular Hemoglobin 31.1 pg (28.0-34.0); Mean Corpuscular Volume 95.7 fl (81-99); Mean Platelet Volume 9.4 fL (7.4-10.4); Monocytes # 0.8 10^3/uL (0.2-0.9); Monocytes % 6.6 %; Neutrophils # 9.13 10^3/uL (1.8-7.7); Neutrophils % 78.6 %; Nucleated Red Blood Cells % 0 %; Platelet Count 388 10^3/cmm (130-400); Red Blood Count 3.05 10^6/uL (4.1-5.3); Red Cell Distribution Width 14.4 % (12.1-15.1); White Blood Count 11.6 10^3/uL (4.0-10.0)
[2022-08-04 06:03] LABS: Alanine Aminotransferase 12 U/L (0-33); Albumin Level 2.5 g/dL (3.5-5.2); Alkaline Phosphatase 127 U/L (35-105); Anion Gap 14.7 (5-19); Aspartate Amino Transferase 21 U/L (0-32); Blood Urea Nitrogen 5 mg/dL (8-23); Calcium 8.6 mg/dL (8.5-10.5); Carbon Dioxide 25 mmol/L (22-29); Chloride 99 mmol/L (98-107); Chol HDL Ratio 4.74 mg/dL (0.0-4.40); Cholesterol 147 mg/dL (0-200); Globulin 3.4 g/dL (1.3-4.6); Glucose 127 mg/dL (65-115); HDL Cholesterol 31 mg/dL (60-100); LDL Cholesterol Calculated 82 mg/dL (50-129); Osmolality Calculated 279 mOsm/kg (285-295); Potassium 3.7 mmol/L (3.5-5.1); Sodium 135 mmol/L (136-145); Total Bilirubin 0.4 mg/dL (0.15-1.2); Total Protein 5.9 g/dL (6.6-8.7); Triglycerides 170 mg/dL (0-150); VLDL Cholestrol Calculation 34 mg/dL (0-30)
[2022-08-04 06:21] LABS: Estmated Average Glucose 114; Hemoglobin A1C 5.6 % (4.0-6.0)
[2022-08-04] MEDS: docusate sodium 100 mg Capsule PO ×2 (08:31→18:22)
[2022-08-04] MEDS: citalopram 20 mg Tablet PO (08:31)
[2022-08-04] MEDS: morphine 4 mg/mL SDV 1 mL 1 MG IVP ×2 (08:38→14:39)
[2022-08-04 12:32] LABS: Glucose Point of Care 158 mg/dL (70-110)
[2022-08-04] MEDS: dilTIAZem ER (24HR) 300 mg Capsule PO (12:46)
[2022-08-04] MEDS: sucralfate 1 gm/10 mL Oral Liq UDC PO (12:46)
[2022-08-04] MEDS: lisinopril 20 mg Tablet 40 MG PO (12:46)
--- NOTE | 2022-08-04 14:15 | PM.PN ---
Subjective Subjective: No acute events overnight. Patient denies any nausea, vomiting, headache. Overnight patient has only had up to 100 cc of black tarry fluid through the NG tube. Patient asking for the NG tube to be removed. Denies any nausea or vomiting on clear liquid diet. Has remained hemodynamically stable and afebrile. Complaining of pain in back. Sitting up in chair during examination. Patient continues to pass flatus. No bowel movements. Vitals/I&O/Wt Last Vital Signs Temp 97.8 F 08/04/22 08:00 Pulse 88 08/04/22 08:00 Resp 18 08/04/22 08:38 BP 159/76 08/04/22 08:00 Pulse Ox 90 08/04/22 08:00 O2 Del Method 08/04/22 03:51 O2 Flow Rate 2 08/04/22 08:00 08/03/22 08/04/22 08/04/22 22:59 06:59 14:59 Intake Total 1480 / 2388.333 1000 / 3388.333 Output Total 60 / 760 700 / 1460 350 / 350 Balance 1420 / 1628.333 300 / 1928.333 -350 / -350 Physical Exam Const: COMMON NORMALS: patient oriented x3 HENMT: COMMON NORMALS: normocephalic and atraumatic HEAD & SCALP: normocephalic and atraumatic Resp: COMMON NORMALS: clear to auscultation bilaterally EFFORT & INSPECTION: Yes symmetric chest movement AUSCULTATION: clear to auscultation bilaterally Cardio: COMMON NORMALS: regular rate, regular rhythm, S1 normal heart sound present, S2 normal heart sound present, No gallops present (Cardio), No murmurs present (Cardio), No rub (Cardio) and Peripheral pulses 2+ throughout RATE: regular rate RHYTHM: regular rhythm HEART SOUNDS: S1 normal heart sound present and S2 normal heart sound present PERIPHERAL PULSES: Peripheral pulses 2+ throughout GI: COMMON NORMALS: Soft to palpation and No hepatosplenomegaly present PALPATION: Yes Soft to palpation and Yes No hepatosplenomegaly present RECTAL EXAM: deferred OTHER: NG tube in place with dark-colored contents. Bowel sounds sluggish Back/Pelvis: OTHER: Surgical dressing present. Not soaked, clean appearing Extremity: COMMON NORMALS: no clubbing, cyanosis or edema and no pedal edema Neuro: COMMON NORMALS: patient oriented x3 Urinary Catheter Management: Simmons: Cath Placed During This Visit: yes, but has since been removed by the nurse Reason for Continuing Indwelling Catheter: Decision to DC Catheter Urinary Catheter Date of Insertion: 08/02/22 Urinary Catheter Time of Insertion: 02:40 Date Urinary Catheter Removed: 08/04/22 Time Urinary Catheter Discontinued: 11:15 Data 08/04/22 04:58 08/04/22 04:58 A&P Assessment and plan (1) Ileus: (2) Anemia: (3) Status post lumbar spinal fusion: Postop day 8. Discharged from the hospital on 07/28. Spinal surgery team on board. Continue with physical therapy and wound care as per spinal surgery team. (4) Constipation: (5) Hypertension: Goal blood pressure less than 140/90 mmHg. Patient takes Cardizem 300 mg, hydrochlorothiazide 25 mg, lisinopril 40 mg, metoprolol 100 mg at home. Restart home dose of Cardizem, lisinopril. Depending on the heart rate and blood pressure will restart home dose of metoprolol. Monitor blood pressures. Qualifiers: Hypertension type: unspecified Qualified Code(s): I10 - Essential (primary) hypertension (6) Low back pain: (7) Hyponatremia: Resolved. (8) Hypokalemia: Resolved. Continue to monitor and replace. (9) Leukocytosis: Plan 67 year old female with past medical history of hypertension, chronic low back pain status post, recent lumbar spinal fusion discharged on July 28, came in today with chief complaint of postoperative back pain, bilateral lower extremity pain, abdominal distention and nausea. Assessment: Constipation: Most likely in setting of moderate ileus secondary to pain medications: Continue with conservative treatment. Appreciate CT abdomen pelvis without contrast done yesterday which shows resolution of ileus and constipation. Patient tolerated clear liquid diet well. Advance to full liquid diet. Remove NG tube. Continue with Protonix IV 40 mg twice daily, Zofran as needed. Continue with scheduled Reglan 5 mg every 8 hourly for now. Anemia: Concerns for hematemesis. Hemoglobin has remained stable. 9.5 today. Continue with IV Protonix. We will plan to transition to oral Protonix on discharge. Start on oral Carafate before meals and at bedtime. CODE STATUS: Full code NPO. Start on clear liquid diet as per CT abdomen pelvis. Protonix OPD prophylaxis SCDs for DVT prophylaxis. No medical prophylaxis. JORJE Simmons. Discharge planning: Plan to discharge in next 24 hours to home with caregiver if remains hemodynamically stable, stable hemoglobin and able to tolerate full liquid diet well. Attestations Medical Necessity Statement*: Request for hospitalization for management of constipation in setting of ileus from pain medication, gastritis while diet is gradually advanced Diagnoses Ileus K56.7 Anemia D64.9 Status post lumbar spinal fusion Z98.1 Constipation K59.00 Hypertension I10 Hypertension type: unspecified Low back pain M54.50 Hyponatremia E87.1 Hypokalemia E87.6 Leukocytosis D72.829
[2022-08-04] MEDS: pantoprazole 40 mg SDV IVP ×2 (14:22→22:50)
[2022-08-04 17:35] LABS: Glucose Point of Care 142 mg/dL (70-110)
[2022-08-04] MEDS: TRAMadol 50 mg Tablet PO (18:22)
--- NOTE | 2022-08-04 22:43 | ECG_ITS ---
[facility] Test Date: 2022-08-04 Pat Name: Lois Russo Department: Room: 261 Gender: Female Cloth Layer: : 1955 Requested By: Santos Walker Order Number: [id number] Yarely MD: Marlo Mcnamara M.D. Measurements Intervals [place] Rate: 158 P: 0 NM: 0 QRS: 33 QRSD: 82 T: -60 QT: 270 QTc: 439 Interpretive Statements ATRIAL FLUTTER/TACHYCARDIA WITH RAPID VENTRICULAR RESPONSE WITH ABERRANT CONDUCTION OR VENTRICULAR PREMATURE COMPLEXES NONSPECIFIC ST & T-WAVE ABNORMALITY CRITICAL TEST RESULT Compared to ECG 12/30/2015 13:33:14 Ventricular premature complex(es) now present Aberrant conduction of supraventricular beat(s) now present T-wave abnormality now present Sinus rhythm no longer present Electronically Signed On 08-04-2022 23:13:12 CDT by Marlo Mcnamara M.D. [id number]
[2022-08-04 23:14] LABS: Basophils # 0.1 10^3/uL (0.0-0.1); Basophils % 0.5 %; Eosinophils % 0.3 %; Hematocrit 31.1 % (37.0-47.0); Lymphocytes # 1.5 10^3/uL (0.8-4.8); Lymphocytes % 11.8 %; Mean Corpuscular HGB Conc 32.2 g/dL (30.0-36.0); Mean Corpuscular Hemoglobin 30.3 pg (28.0-34.0); Mean Corpuscular Volume 94.2 fl (81-99); Monocytes % 7.8 %; Neutrophils % 78.5 %; Nucleated Red Blood Cells % 0.2 %; Platelet Count 404 10^3/cmm (130-400); Red Cell Distribution Width 14.1 % (12.1-15.1); White Blood Count 12.6 10^3/uL (4.0-10.0)
[2022-08-04 23:30] LABS: Anion Gap 13.2 (5-19); Blood Urea Nitrogen 5 mg/dL (8-23); Calcium 8.7 mg/dL (8.5-10.5); Carbon Dioxide 26 mmol/L (22-29); Chloride 100 mmol/L (98-107); Glucose 115 mg/dL (65-115); Osmolality Calculated 280 mOsm/kg (285-295); Potassium 3.2 mmol/L (3.5-5.1); Sodium 136 mmol/L (136-145)
[2022-08-05] VITALS (7 sets, daily range): BP systolic 104–130; BP diastolic 66–82; PULSE 71–103; RESP 16–18; TEMP 36.4–36.9; O2SAT 87–98
[2022-08-05] MEDS: TRAMadol 50 mg Tablet PO ×3 (00:23→23:31)
[2022-08-05 05:06] LABS: Glucose Point of Care 125 mg/dL (70-110)
[2022-08-05] MEDS: metoclopramide 5 mg/mL SDV 2 mL IVP ×3 (06:31→21:29)
[2022-08-05] MEDS: dilTIAZem ER (24HR) 300 mg Capsule PO (08:42)
[2022-08-05] MEDS: lisinopril 20 mg Tablet 40 MG PO (08:42)
[2022-08-05] MEDS: docusate sodium 100 mg Capsule PO ×2 (08:42→18:03)
[2022-08-05] MEDS: citalopram 20 mg Tablet PO (08:42)
[2022-08-05 10:23] LABS: Glucose Point of Care 193 mg/dL (70-110)
[2022-08-05] MEDS: dextrose 5%-sod chloride 0.9% 1,000 ML 75 ML IV ×2 (12:58→21:29)
[2022-08-05] MEDS: pantoprazole 40 mg SDV IVP ×2 (12:58→21:29)
[2022-08-05] MEDS: magnesium hydroxide 30 mL UDC PO (13:04)
[2022-08-05] MEDS: sennosides-docusate Tablet 1 TAB PO ×2 (13:04→18:03)
[2022-08-05 16:01] LABS: Glucose Point of Care 135 mg/dL (70-110)
--- NOTE | 2022-08-05 16:11 | PM.PN ---
Subjective Subjective: No acute events overnight. Patient has remained hemodynamically stable and afebrile. Tolerating full liquid diet well. Denies any further nausea or abdominal distention. Passing flatus but still no bowel movements. NG tube was removed yesterday. Patient still requiring 1 to 2 L oxygen supplementation which is new for her. States working well with incentive spirometry whenever she can remember. Patient did have an episode of atrial fibrillation with rapid ventricular response overnight for which she required IV metoprolol. Her home dose of Cardizem has been continued to metoprolol has not initiated given soft blood pressures. Vitals/I&O/Wt Last Vital Signs Temp 97.8 F 08/05/22 11:40 Pulse 93 08/05/22 11:40 Resp 18 08/05/22 11:40 BP 106/66 08/05/22 11:40 Pulse Ox 87 L 08/05/22 13:59 O2 Del Method 08/05/22 11:40 O2 Flow Rate 2 08/05/22 13:59 08/05/22 08/05/22 08/05/22 06:59 14:59 22:59 Intake Total 1360 / 1360 Balance 1360 / 1360 Physical Exam Const: COMMON NORMALS: patient oriented x3 HENMT: COMMON NORMALS: normocephalic and atraumatic HEAD & SCALP: normocephalic and atraumatic Resp: COMMON NORMALS: clear to auscultation bilaterally EFFORT & INSPECTION: Yes symmetric chest movement AUSCULTATION: clear to auscultation bilaterally Cardio: COMMON NORMALS: regular rate, regular rhythm, S1 normal heart sound present, S2 normal heart sound present, No gallops present (Cardio), No murmurs present (Cardio), No rub (Cardio) and Peripheral pulses 2+ throughout RATE: regular rate RHYTHM: regular rhythm HEART SOUNDS: S1 normal heart sound present and S2 normal heart sound present PERIPHERAL PULSES: Peripheral pulses 2+ throughout GI: COMMON NORMALS: Soft to palpation and No hepatosplenomegaly present PALPATION: Yes Soft to palpation and Yes No hepatosplenomegaly present RECTAL EXAM: deferred OTHER: NG tube in place with dark-colored contents. Bowel sounds sluggish Back/Pelvis: OTHER: Surgical dressing present. Not soaked, clean appearing Extremity: COMMON NORMALS: no clubbing, cyanosis or edema and no pedal edema Neuro: COMMON NORMALS: patient oriented x3 Urinary Catheter Management: Simmons: Cath Placed During This Visit: yes, but has since been removed by the nurse Reason for Continuing Indwelling Catheter: Decision to DC Catheter Urinary Catheter Date of Insertion: 08/02/22 Urinary Catheter Time of Insertion: 02:40 Date Urinary Catheter Removed: 08/04/22 Time Urinary Catheter Discontinued: 11:15 Data 08/04/22 23:07 08/04/22 23:07 A&P Assessment and plan (1) Ileus: (2) Anemia: (3) Status post lumbar spinal fusion: Postop day 8. Discharged from the hospital on 07/28. Spinal surgery team on board. Continue with physical therapy and wound care as per spinal surgery team. (4) Hypoxia: Most likely secondary atelectasis from poor inspiratory effect postoperatively but cannot rule out undiagnosed COPD. Home O2 evaluation. No active consolidation on chest x-ray. Check proBNP, D-dimer. Continue with incentive spirometry. (5) Atrial fibrillation: At home takes Cardizem 300 and metoprolol 100 mg daily. Not on anticoagulation. Continued on Cardizem 300 mg. Blood pressure on softer side. Start on metoprolol 25 mg twice daily. Repeat EKG. We will discuss with patient in detail regarding need for anticoagulation before initiating. (6) Constipation: (7) Hypertension: Goal blood pressure less than 140/90 mmHg. Patient takes Cardizem 300 mg, hydrochlorothiazide 25 mg, lisinopril 40 mg, metoprolol 100 mg at home. Restart home dose of Cardizem, lisinopril. Depending on the heart rate and blood pressure will restart home dose of metoprolol. Monitor blood pressures. Qualifiers: Hypertension type: unspecified Qualified Code(s): I10 - Essential (primary) hypertension (8) Low back pain: (9) Hyponatremia: Resolved. (10) Hypokalemia: Resolved. Continue to monitor and replace. (11) Leukocytosis: Plan 67 year old female with past medical history of hypertension, chronic low back pain status post, recent lumbar spinal fusion discharged on July 28, came in today with chief complaint of postoperative back pain, bilateral lower extremity pain, abdominal distention and nausea. Assessment: Constipation: Most likely in setting of moderate ileus secondary to pain medications: Ileus has resolved. Continue with conservative treatment. Appreciate CT abdomen pelvis without contrast done yesterday which shows resolution of ileus and constipation. Tolerating full liquid diet well. Off NG tube. Continue with Protonix IV 40 mg twice daily, Zofran as needed. Continue with scheduled Reglan 5 mg every 8 hourly for now. Anemia: Hemoglobin has remained stable. Trending up to 10 today. Continue with oral iron supplementation. Continue with IV Protonix. We will plan to transition to oral Protonix on discharge. Start on oral Carafate before meals and at bedtime. CODE STATUS: Full code NPO. Full liquid diet. Most likely will discharge on full liquid diet with advised to advance gradually to regular diet for the next 1 week. Protonix OPD prophylaxis SCDs for DVT prophylaxis. No medical prophylaxis. DC Simmons. Discharge planning: Plan to discharge in next 24 hours to home with caregiver if remains hemodynamically stable, stable hemoglobin and able to tolerate full liquid diet well. Attestations Medical Necessity Statement*: Requires further hospitalization for management of postoperative ileus and anemia while diet is slowly advanced, hypoxia and atrial fibrillation. Coding Level of Care Code 43117 High MDM includes number and complexity of problems actively addressed during encounter, amount and/or complexity of data reviewed/ordered (New onset atrial fibrillation. Discussing with patient regarding anticoagulation and possible side effects.) [ previous or external records, resulted lab(s)/test(s), ordered lab(s)/test(s), independent test interpretation and other healthcare professional discussion] and described risk of complication, morbidity or mortality of management as documented Diagnoses Ileus K56.7 Anemia D64.9 Status post lumbar spinal fusion Z98.1 Hypoxia R09.02 Atrial fibrillation I48.91 Constipation K59.00 Hypertension I10 Hypertension type: unspecified Low back pain M54.50 Hyponatremia E87.1 Hypokalemia E87.6 Leukocytosis D72.829
--- NOTE | 2022-08-05 16:18 | ECG_ITS ---
[facility] Test Date: 2022-08-05 Pat Name: Lois Russo Department: Room: 261 Gender: Female Inspector Dials: : 1955 Requested By: Santos Walker Order Number: [id number] Yarely MD: Benito Reyes M.D. Measurements Intervals [place] Rate: 88 P: -66 [place]: 115 QRS: 21 QRSD: 89 T: -14 QT: 377 QTc: 456 Interpretive Statements ECTOPIC ATRIAL RHYTHM NONSPECIFIC ST & T-WAVE ABNORMALITY Compared to ECG 08/04/2022 22:47:50 Atrial flutter no longer present Ventricular premature complex(es) no longer present T-wave abnormality still present Electronically Signed On 08-05-2022 16:45:45 CDT by Benito Reyes M.D. [id number]
--- NOTE | 2022-08-05 16:18 | USCV_ITS ---
Lois Russo Age: 67 Gender: F : 1955 Exam Date: 08/05/2022 16:50 Ordering Phys: Santos Walker MD Technologist: Julio Meza [place] [facility] [place]: A fib BP: 118 / 66 HR: 91 Rhythm: Sinus Technical Quality: Adequate MEASUREMENTS (Male / Female) Normal Values 2D ECHO LV Diastolic Diameter PLAX 4.8 cm 4.2 - 5.9 / 3.9 - 5.3 cm LV Systolic Diameter PLAX 3.5 cm IVS Diastolic Thickness 1.2 cm 0.6 - 1.0 / 0.6 - 0.9 cm IVS Systolic Thickness 1.4 cm LVPW Diastolic Thickness 1.1 cm 0.6 - 1.0 / 0.6 - 0.9 cm LVPW Systolic Thickness 1.5 cm LVOT Diameter 2.0 cm LV Ejection Fraction 2D Teich 51.3 % LV Ejection Fraction MOD 2C 64.5 % LV Ejection Fraction 2C AL 66.0 % LA Width 3.7 cm LA Height 4.6 cm RA Width 2.8 cm RA Height 3.6 cm Aorta at Sinotubular Diameter 2.2 cm DOPPLER AV Peak Velocity 476.6 cm/s LVOT Peak Velocity 101.0 cm/s AV Area Cont Eq vti 0.7 cm squared AV Area Cont Eq pk 0.7 cm squared MV Peak Velocity 111.0 cm/s MV Area PHT 6.5 cm squared Mitral E to A Ratio 0.7 MV E' Velocity 28.5 cm/s Mitral E to MV E' Ratio 10.1 Mitral E to LV E' Lateral Ratio 11.2 Mitral E to LV E' Septal Ratio 9.2 TR Peak Velocity 371.3 cm/s TR Peak Gradient 55.1 mmHg TR Mean Velocity 290.6 cm/s TR Mean Gradient 35.4 mmHg TR Velocity Time Integral 82.3 cm Right Atrial Pressure 8.0 mmHg Pulmonary Artery Systolic Pressu 63.1 mmHg FINDINGS Left Ventricle Normal left ventricular size and systolic function, EF 70 %. Mild left ventricular hypertrophy. No regional wall motion abnormalities. Grade I/IV diastolic dysfunction (abnormal relaxation filling pattern), normal to mildly elevated filling pressures. Right Ventricle Normal right ventricular size and systolic function. Right Atrium The right atrium is normal in size. Left Atrium The left atrium is normal in size. Mitral Valve Trace mitral valve regurgitation. Aortic Valve Severe aortic valve stenosis, mean gradient 51.1 mmHg, OSCAR 0.73 cm squared. Peak velocity of 4.76 m/s with a peak gradient of 91 mmHg and a mean gradient of 49 mmHg. The aortic valve index of 0.39 Tricuspid Valve Trace tricuspid valve regurgitation. Pulmonic Valve Pulmonic valve not well visualized. Estimated pulmonary artery peak systolic pressure 35 mmHg Pericardium No pericardial effusion. Aorta Normal aortic annulus size. IVC Inferior vena cava not visualized. CONCLUSIONS Normal left ventricular size and systolic function, EF 70 %. Mild left ventricular hypertrophy. No regional wall motion abnormalities. Grade I/IV diastolic dysfunction (abnormal relaxation filling pattern), normal to mildly elevated filling pressures. Severe aortic valve stenosis, mean gradient 51.1 mmHg, OSCAR 0.73 cm squared. Peak velocity of 4.76 m/s with a peak gradient of 91 mmHg and a mean gradient of 49 mmHg. The aortic valve index of 0.39. Trace mitral valve regurgitation. Trace tricuspid valve regurgitation. Estimated pulmonary artery peak systolic pressure 35 mmHg There is no pericardial effusion. No similar previous studies are available for comparison Dr Marlo Mcnamara MD [facility] (Electronically Signed) Final Date: 06 August 2022 14:19 S
[2022-08-05 17:30] LABS: D Dimer 8.36 ug/mIFEU (0-0.59)
[2022-08-05 17:39] LABS: NT Pro B Type Natriuretic Pept 4002 pg/mL (0-125)
--- NOTE | 2022-08-05 17:45 | CTR_ITS ---
PROCEDURE INFORMATION: Exam: CTA Chest With Contrast Exam date and time: 08/05/2022 11:14 PM Age: 67 years old Clinical indication: Abnormal findings; Abnormal diagnostic tests; Elevated d-dimer; Shortness of breath; Prior surgery; Surgery date: <1 month; Surgery type: Thoraco lumbar fusion on 07/27/2022. Gb; Patient HX: SOB and hypoxia with elevated d dimer. Thoraco lumbar fusion on 07/27/2022. ; Additional info: Elevated dimer, hypoxia post op TECHNIQUE: Imaging protocol: Computed tomographic angiography of the chest with contrast. 3D rendering (Not supervised by radiologist): MIP and/or 3D reconstructed images were created by the technologist. Radiation optimization: All CT scans at this facility use at least one of these dose optimization techniques: automated exposure control; mA and/or kV adjustment per patient size (includes targeted exams where dose is matched to clinical indication); or iterative reconstruction. Contrast material: OMNI 350; Contrast volume: 65 ml; Contrast route: INTRAVENOUS (IV); REPORTING DATA: Count of CT and Cardiac NM exams in prior 12 months: This patient has received 2 known CTs and 0 known cardiac nuclear medicine studies in the 12 months prior to the current study. COMPARISON: CT chest abdpel w/*[id number] 04/04/2022 4:40 PM RADIATION DOSE METRICS: Total DLP (mGy-cm): 423.91 FINDINGS: Pulmonary arteries: Normal. No pulmonary emboli. Aorta: Unremarkable. No aortic aneurysm. No aortic dissection. Thyroid: Unchanged right thyroid nodule. Lungs: Marked emphysema is unchanged. Solid right upper lobe nodule measuring 4 mm on series 6, image 30 is unchanged. There is bilateral lower lobe consolidation present adjacent to the pleural effusions. Lingular scarring is unchanged. Scattered calcified granulomas in the lungs. Pleural spaces: Small bilateral pleural effusions. Heart: Stable heart size with stable coronary artery atherosclerosis. Lymph nodes: Calcified lymph nodes in the mediastinum and hilum are unchanged in the consistent with old granulomatous disease. Bones/joints: Recent appearing thoracolumbar spinal fusion changes. Subacute to chronic appearing bilateral rib fractures. Soft tissues: Unremarkable. CT/CT angio chest PE protcl [id number] IMPRESSION: 1. No pulmonary embolus. 2. Small bilateral pleural effusions with adjacent lower lobe consolidation. Correlate for pneumonia. COMMENTS: In the absence of a history or active diagnosis of lung cancer, it is recommended that this patient with emphysema be evaluated for enrollment in a low dose CT lung cancer screening program.
[2022-08-05] MEDS: metoprolol tartrate 25 mg Tablet PO ×2 (18:03→20:06)
[2022-08-05 20:55] LABS: Glucose Point of Care 129 mg/dL (70-110)
[2022-08-05] MEDS: iohexol 350 mg/mL 500 mL Btl (per mL) IV (23:21)
[2022-08-06] VITALS: BP 126/82; PULSE 75; RESP 15; TEMP 36.6; O2SAT 94
[2022-08-06 03:36] VITALS: BP 130/79; PULSE 66; RESP 15; TEMP 36.7; O2SAT 94
[2022-08-06 05:04] LABS: Basophils # 0.1 10^3/uL (0.0-0.1); Basophils % 0.5 %; Eosinophils # 0.1 10^3/uL (0.0-0.8); Eosinophils % 1.5 %; Hematocrit 25.7 % (37.0-47.0); Hemoglobin 8.3 g/dL (11.5-15.3); Lymphocytes # 1.8 10^3/uL (0.8-4.8); Lymphocytes % 18.5 %; Mean Corpuscular HGB Conc 32.3 g/dL (30.0-36.0); Mean Corpuscular Hemoglobin 30.9 pg (28.0-34.0); Mean Corpuscular Volume 95.5 fl (81-99); Mean Platelet Volume 9.5 fL (7.4-10.4); Monocytes # 0.7 10^3/uL (0.2-0.9); Monocytes % 7.6 %; Neutrophils # 6.82 10^3/uL (1.8-7.7); Neutrophils % 70.8 %; Nucleated Red Blood Cells % 0 %; Platelet Count 388 10^3/cmm (130-400); Red Blood Count 2.69 10^6/uL (4.1-5.3); Red Cell Distribution Width 14.2 % (12.1-15.1); White Blood Count 9.6 10^3/uL (4.0-10.0)
[2022-08-06 05:22] LABS: Alanine Aminotransferase 9 U/L (0-33); Albumin Level 2.3 g/dL (3.5-5.2); Alkaline Phosphatase 142 U/L (35-105); Anion Gap 11.3 (5-19); Blood Urea Nitrogen 7 mg/dL (8-23); Calcium 8.3 mg/dL (8.5-10.5); Carbon Dioxide 26 mmol/L (22-29); Chloride 100 mmol/L (98-107); Glucose 117 mg/dL (65-115); Osmolality Calculated 277 mOsm/kg (285-295); Potassium 3.3 mmol/L (3.5-5.1); Sodium 134 mmol/L (136-145); Total Bilirubin 0.3 mg/dL (0.15-1.2); Total Protein 5.3 g/dL (6.6-8.7)
[2022-08-06 05:31] LABS: Aspartate Amino Transferase 18 U/L (0-32)
[2022-08-06] MEDS: metoclopramide 5 mg/mL SDV 2 mL IVP (05:41)
[2022-08-06] MEDS: TRAMadol 50 mg Tablet PO (05:41)
[2022-08-06 06:47] LABS: Glucose Point of Care 123 mg/dL (70-110)
[2022-08-06 08:12] VITALS: BP 117/69; PULSE 75; RESP 15; TEMP 36.4; O2SAT 95
[2022-08-06] MEDS: sennosides-docusate Tablet 1 TAB PO (08:51)
[2022-08-06] MEDS: metoprolol tartrate 25 mg Tablet PO (08:51)
[2022-08-06] MEDS: citalopram 20 mg Tablet PO (08:51)
[2022-08-06] MEDS: docusate sodium 100 mg Capsule PO (08:51)
[2022-08-06] MEDS: lisinopril 20 mg Tablet 40 MG PO (08:53)
[2022-08-06] MEDS: dilTIAZem ER (24HR) 300 mg Capsule PO (08:53)
[2022-08-06] MEDS: sucralfate 1 gm/10 mL Oral Liq UDC PO (10:44)
[2022-08-06] MEDS: pantoprazole 40 mg SDV IVP (10:44)
[2022-08-06 12:00] VITALS: BP 122/81; PULSE 73; RESP 17; O2SAT 97
[2022-08-06 12:03] LABS: Glucose Point of Care 111 mg/dL (70-110)
[2022-08-06 15:25] LABS: Hematocrit 27.5 % (37.0-47.0); Hemoglobin 8.9 g/dL (11.5-15.3)
--- NOTE | 2022-08-06 15:48 | P.DS_ITS ---
Discharge Providers Date of Admission: 08/01/22 16:40 Date of Discharge: August 06, 2022 Attending Provider at Admission: Jonny Kohli MD Attending Provider at Discharge: Santos Walker MD Primary Care Provider: HENOK Caicedo Diagnoses at Discharge Discharge Diagnosis (1) Ileus: Status: Acute (2) Anemia: Status: Acute (3) Status post lumbar spinal fusion: Status: Acute (4) Hypoxia: Status: Acute (5) Atrial fibrillation: Status: Acute (6) Constipation: Status: Acute (7) Hypertension: Status: Acute Qualifiers: Hypertension type: unspecified Qualified Code(s): I10 - Essential (primary) hypertension (8) Low back pain: Status: Acute (9) Hyponatremia: Status: Acute (10) Hypokalemia: Status: Acute (11) Leukocytosis: Status: Acute Reason for Visit Reason for Visit: BACK PAIN; CONSTIPATION Brief History: History as per HPI: Lois Russo is a 67 year old female with past medical history of hypertension, chronic low back pain status post, recent lumbar spinal fusion discharged on July 28, came in today with chief complaint of postoperative back pain, bilateral lower extremity pain, abdominal distention and nausea.? Post discharge Patient has been on narcotics for pain control, she had not had any bowel movement in the last 6 days. X-rays abdomen has shown: Ileus without obstruction Pertinent labs includes: WBC 12.1, H&H 10 and 30,plt; 368 , serum sodium 129 serum potassium 3, BUN 21, serum creatinine 1, Plan is to place NG tube and mammography supervisor to low intermittent suction. Hospital Course Hospital Course Patient was admitted to hospital further evaluation and management of abdominal distention along with nausea and vomiting in setting of recent discharge. She was treated conservatively. At first NG tube was placed along with n.p.o. status and IV hydration. On admission patient was found to be hyponatremic secondary to hypovolemia which resolved with IV fluids. Patient had significant amount of drainage through the NG tube for first few days with concern for possible hematemesis. She does carry history of gastric bleeding ulcers in the past. Her hemoglobin was regularly monitored. She was started on IV Protonix. CT abdomen pelvis was done which ruled out small bowel obstruction and ileus. Patient was followed in during hospitalization with primary Ortho condition. Physical therapy and dressing changes were done as per their directions. It is believed patient's symptoms are secondary to extensive gastritis secondary to pain medication at home prior to admission along with decreased physical activity causing the ileus which resolved by conservative treatment. She was gradually advanced to full liquid diet and has been tolerating well. Hemoglobin has remained stable. Patient did have hypoxia during hospitalization which is most likely secondary to postoperative atelectasis. CTA was done which ruled out PE or any consolidation. Home oxygen evaluation was done prior to discharge. She been discharged in hemodynamically stable condition on oral Protonix twice daily for 14 days and once daily after that, Carafate before meals and at bedtime for 14 days advised to follow-up with Dr. Contreras as an outpatient within next 1 week for EGD and colonoscopy. Patient is to continue taking aggressive bowel regimen on discharge. Physical Exam Const: COMMON NORMALS: patient oriented x3 HENMT: COMMON NORMALS: normocephalic and atraumatic HEAD & SCALP: normocephalic and atraumatic Resp: COMMON NORMALS: clear to auscultation bilaterally EFFORT & INSPECTION: Yes symmetric chest movement AUSCULTATION: clear to auscultation bilaterally Cardio: COMMON NORMALS: regular rate, regular rhythm, S1 normal heart sound present, S2 normal heart sound present, No gallops present (Cardio), No murmurs present (Cardio), No rub (Cardio) and Peripheral pulses 2+ throughout RATE: regular rate RHYTHM: regular rhythm HEART SOUNDS: S1 normal heart sound present and S2 normal heart sound present PERIPHERAL PULSES: Peripheral pulses 2+ throughout GI: COMMON NORMALS: Soft to palpation and No hepatosplenomegaly present PALPATION: Yes Soft to palpation and Yes No hepatosplenomegaly present RECTAL EXAM: deferred OTHER: NG tube in place with dark-colored contents. Bowel sounds present. Back/Pelvis: OTHER: Surgical dressing present. Not soaked, clean appearing Extremity: COMMON NORMALS: no clubbing, cyanosis or edema and no pedal edema Neuro: COMMON NORMALS: patient oriented x3 Urinary Catheter Management: Simmons: Cath Placed During This Visit: yes, but has since been removed by the nurse Reason for Continuing Indwelling Catheter: Decision to DC Catheter Urinary Catheter Date of Insertion: 08/02/22 Urinary Catheter Time of Insertion: 02:40 Date Urinary Catheter Removed: 08/04/22 Time Urinary Catheter Discontinued: 11:15 Discharge Data Studies Completed and Pending Completed Studies During Hospitalization Category Date Time Status CT abdomen pelvis wo con [id number] Routine Cat Scan 08/03/22 10:38 Completed CTA chest [CT angio chest PE protcl [id number]] Routine Cat Scan 08/05/22 17:45 Completed XR acute abdomen series [id number] Stat Exams 08/01/22 13:12 Completed CV. echo complete* [id number] Routine Ultrasound 08/05/22 16:18 Completed Radiology Impressions Chest/Abdomen X-ray 08/01/22 13:12 IMPRESSION: 1. moderate ileus 2. Negative for acute GI abnormality 3. Extensive orthopedic hardware lumbar spine 4. Negative chest examination Abdomen/Pelvis CT 08/03/22 10:38 IMPRESSION: 1. No sign of bowel obstruction or an ileus. 2. No large volume ascites. Chest CTA 08/05/22 17:45 IMPRESSION: 1. No pulmonary embolus. 2. Small bilateral pleural effusions with adjacent lower lobe consolidation. Correlate for pneumonia. COMMENTS: In the absence of a history or active diagnosis of lung cancer, it is recommended that this patient with emphysema be evaluated for enrollment in a low dose CT lung cancer screening program. Laboratory Results WBC 9.6 10^3/uL (4.0-10.0) 08/06/22 04:38 RBC 2.69 10^6/uL (4.1-5.3) L 08/06/22 04:38 Hgb 8.9 g/dL (11.5-15.3) L 08/06/22 15:08 Hct 27.5 % (37.0-47.0) L 08/06/22 15:08 MCV 95.5 fl (81-99) 08/06/22 04:38 MCH 30.9 pg (28.0-34.0) 08/06/22 04:38 MCHC 32.3 g/dL (30.0-36.0) 08/06/22 04:38 RDW 14.2 % (12.1-15.1) 08/06/22 04:38 Plt Count 388 10^3/cmm (130-400) 08/06/22 04:38 MPV 9.5 fL (7.4-10.4) 08/06/22 04:38 Neut % (Auto) 70.8 % 08/06/22 04:38 Lymph % (Auto) 18.5 % 08/06/22 04:38 [place] % (Auto) 7.6 % 08/06/22 04:38 Eos % (Auto) 1.5 % 08/06/22 04:38 Baso % (Auto) 0.5 % 08/06/22 04:38 Neut # (Auto) 6.82 10^3/uL (1.8-7.7) 08/06/22 04:38 Lymph # (Auto) 1.8 10^3/uL (0.8-4.8) 08/06/22 04:38 [place] # (Auto) 0.7 10^3/uL (0.2-0.9) 08/06/22 04:38 Eos # (Auto) 0.1 10^3/uL (0.0-0.8) 08/06/22 04:38 Baso # (Auto) 0.1 10^3/uL (0.0-0.1) 08/06/22 04:38 Nucleated RBC % (auto) 0 % 08/06/22 04:38 Nucleated RBCs # 0.0 /100WBC 08/06/22 04:38 D-Dimer 8.36 ug/mIFEU (0-0.59) H 08/05/22 14:33 Sodium 134 mmol/L (136-145) L 08/06/22 04:38 Potassium 3.3 mmol/L (3.5-5.1) L 08/06/22 04:38 Chloride 100 mmol/L (98-107) 08/06/22 04:38 Carbon Dioxide 26 mmol/L (22-29) 08/06/22 04:38 Anion Gap 11.3 (5-19) 08/06/22 04:38 BUN 7 mg/dL (8-23) L 08/06/22 04:38 Creatinine 0.7 mg/dL (0.5-0.9) 08/06/22 04:38 GFR Calculation 84.0 mL/min (90-130) L 08/06/22 04:38 Glucose 117 mg/dL (65-115) H 08/06/22 04:38 POC Glucose 111 mg/dL (70-110) H 08/06/22 11:59 Estimat Average Glucose 114 08/04/22 04:58 Hemoglobin A1c 5.6 % (4.0-6.0) 08/04/22 04:58 Calculated Osmolality 277 mOsm/kg (285-295) L 08/06/22 04:38 Lactate 1.6 mmol/L (0.5-2.2) 08/01/22 13:40 Calcium 8.3 mg/dL (8.5-10.5) L 08/06/22 04:38 Magnesium 1.7 mg/dL (1.7-2.3) 08/02/22 02:34 Iron 10 ug/dL (37-145) L 08/03/22 05:18 TIBC 161 mcg/dl 08/03/22 05:18 % Saturation 6.2 % (20-50) L 08/03/22 05:18 Unsat Iron Binding 151 ug/dL (112-347) 08/03/22 05:18 Total Bilirubin 0.3 mg/dL (0.15-1.2) 08/06/22 04:38 AST 18 U/L (0-32) 08/06/22 04:38 ALT 9 U/L (0-33) 08/06/22 04:38 Alkaline Phosphatase 142 U/L (35-105) H 08/06/22 04:38 NT-Pro-B Natriuret Pep 4002 pg/mL (0-125) H 08/05/22 14:33 Total Protein 5.3 g/dL (6.6-8.7) L 08/06/22 04:38 Albumin 2.3 g/dL (3.5-5.2) L 08/06/22 04:38 Globulin 3.0 g/dL (1.3-4.6) 08/06/22 04:38 Triglycerides 170 mg/dL (0-150) H 08/04/22 04:58 Cholesterol 147 mg/dL (0-200) 08/04/22 04:58 LDL Cholesterol, Calc 82 mg/dL (50-129) 08/04/22 04:58 Total VLDL Cholesterol 34 mg/dL (0-30) H 08/04/22 04:58 HDL Cholesterol 31 mg/dL (60-100) L 08/04/22 04:58 Cholesterol/HDL Ratio 4.74 mg/dL (0.0-4.40) H 08/04/22 04:58 Vitamin B12 > 2000 pg/mL (232-1245) H 08/03/22 05:18 Folate > 20.0 ng/mL (4.8-37.3) 08/03/22 05:18 TSH 1.40 uIU/mL (0.27-4.20) 08/03/22 05:18 Urine Color Yellow (Yellow) 08/01/22 13:40 Urine Appearance Clear (CLEAR) 08/01/22 13:40 Urine pH 5 (5-7) 08/01/22 13:40 Ur Specific [place] 1.015 (1.005-1.030) 08/01/22 13:40 Urine Protein Trace (Negative) 08/01/22 13:40 Urine Glucose (UA) Norm (Normal) 08/01/22 13:40 Urine Ketones 1+ (Negative) H 08/01/22 13:40 Urine Blood Neg (Negative) 08/01/22 13:40 Urine Nitrate Negative (Negative) 08/01/22 13:40 Urine Bilirubin 1+ (Negative) H 08/01/22 13:40 Urine Urobilinogen Norm mg/dL (Negative) 08/01/22 13:40 Ur Leukocyte Esterase Negative (Negative) 08/01/22 13:40 Urine RBC None /hpf (0-2) 08/01/22 13:40 Urine WBC 0-4 /hpf (0-5) H 08/01/22 13:40 Ur Squamous Epith Cells Rare /hpf (0-5) 08/01/22 13:40 Amorphous Sediment Not Reportable 08/01/22 13:40 Urine Bacteria Trace /hpf (NONE) 08/01/22 13:40 Urine Mucus Trace /hpf 08/01/22 13:40 Vitals Last Vital Signs Temp 97.6 F 08/06/22 08:12 Pulse 73 08/06/22 12:00 Resp 17 08/06/22 12:00 BP 122/81 08/06/22 12:00 Pulse Ox 97 08/06/22 12:00 O2 Del Method 08/06/22 08:12 O2 Flow Rate 2 08/06/22 08:00 Discharge Plan Discharge Patient Disposition: Home Health Service Condition: Stable Prescriptions: New sucralfate 100 mg/mL Suspension 1 g PO AC&BEDTIME Qty: 300 0RF docusate sodium 100 mg Capsule 100 mg PO BID Qty: 30 0RF metoprolol tartrate 25 mg Tablet 25 mg PO BID@0900,2100 Qty: 60 0RF lactulose 20 gram/30 mL Solution 10 g PO DAILY PRN (Reason: Constipation (see protocol)) Qty: 300 0RF Protonix 40 mg tablet,delayed release (DR/EC) 40 mg PO BID 14 Days Qty: 60 0RF Rx Instructions: after 14 days daily Continued potassium chloride 10 mEq tablet,ER particles/crystals 10 meq PO DAILY Qty: 90 0RF (DME) Bone Growth Stimulator E0748 See Rx Instructions .Route .MEDSUPPLY Qty: 1 0RF Rx Instructions: As directed citalopram 20 mg tablet 20 mg PO DAILY diltiazem HCl 300 mg capsule,extended release 24hr 300 mg PO DAILY budesonide 3 mg capsule,delayed,extend.release 6 mg PO DAILY lisinopril 40 mg tablet 40 mg PO DAILY Vitamin D3 50 mcg (2,000 unit) Tablet 50 mcg PO DAILY biotin 1 mg Capsule 1 mg PO DAILY Changed hydrocodone-acetaminophen 10-325 mg tablet 1 tab PO Q8H PRN (Reason: pain) 7 Days Qty: 40 0RF Discontinued rabeprazole 20 mg tablet,delayed release (DR/EC) 20 mg PO DAILY Qty: 90 2RF metoprolol succinate 100 mg tablet extended release 24 hr 100 mg PO BEDTIME hydrochlorothiazide 25 mg tablet 25 mg PO BEDTIME Discharge Orders: Discharge Order (Routine); Ordered 08/06/22 Ordered By: Santos Walker Other Ambulatory Orders: DME: Oxygen (Order) Location: None Selected Ordered By: Santos Walker Referrals: Horacio Nagy DO [Physician] - 08/18/22 2:15 pm Phyllis Cheney FNP [Primary Care Provider] - 08/13/22 10:30 am Quoc Contreras DO [Physician] - 1 week Discharge Diet: Advance as tolerated, As Directed and Full LIquid Discharge Activity: Resume usual activity and Increase activity as tolerated Patient Instructions: A-fib (Atrial Fibrillation) (DC), Ileus (DC), Hypoxia (GEN), Opioid Safety Activity Restrictions/Additional Instructions: Multiple medication changes have been done. Do not take hydrochlorothiazide, metoprolol succinate 100 mg daily and omeprazole 20 mg daily at home now. Instead take metoprolol 25 mg twice daily. You will be on Protonix 40 mg twice daily for 14 days after which you should take 40 mg daily. Take sucralfate with meals for next 14 days. Please follow-up with Dr. Contreras's office for an early endoscopy. Please follow-up with a primary care provider on set appointment for repeat CBC. Wound care as per Dr. Nagy's team Apply telfa, and abd pad to lumbar incision, secure with metapore tape. Change daily. Wear abdominal binder for compression. Discharge Attestations Time Spent in Discharge Care*: greater than 30 min Specific Discharge Activities: educating patient, educating and/or supporting family/caregiver, discussing with pcp/other providers, discussing with top case assembler/social workers/dc planners, documenting/other paperwork and evaluating patient/reviewing data Status at Discharge: Cognitive status at discharge: cognitively intact , Behavioral status at discharge: cooperative , Functional status at discharge: uses cane/walker , Overall status at discharge: patient is progressing back to baseline Quality Metrics Clinical Quality Measures [ No reported AMI, CVA or VTE this stay] Coding Level of Care Code 86078 Total time (in minutes) for Discharge: 50 Diagnoses Ileus K56.7 Anemia D64.9 Status post lumbar spinal fusion Z98.1 Hypoxia R09.02 Atrial fibrillation I48.91 Constipation K59.00 Hypertension I10 Hypertension type: unspecified Low back pain M54.50 Hyponatremia E87.1 Hypokalemia E87.6 Leukocytosis D72.829
[2022-08-06 16:05] VITALS: BP 136/81; PULSE 74; RESP 16; TEMP 36.6; O2SAT 93
--- NOTE | 2022-08-06 17:46 | PC.NURSE ---
Patient and her niece who will be providing care for the patient verbalized understanding of discharge instructions, home medications, dressing change orders, and follow up appointments.
[2022-08-06 17:48] VITALS: BP 136/81; PULSE 74; RESP 16; TEMP 36.6; O2SAT 93
== END 2022-08-06 17:49 | disposition home health service (06) | DRG 389 ==
LOC: ER 16:51 → MEDSURG 17:26
PROVIDERS: Internal Medicine; Admitting Provider Internal Medicine; Emergency Provider Nurse Practitioner; PCP Nurse Practitioner Family; Visit Provider Student in an Organized Health Care Education/Training Program
DX: K56.7 Ileus, unspecified (principal); E87.1 Hypo-osmolality and hyponatremia; T40.605A Adverse effect of unspecified narcotics, initial encounter; K29.70 Gastritis, unspecified, without bleeding; E86.1 Hypovolemia; I10 Essential (primary) hypertension; G89.29 Other chronic pain; M54.50 Low back pain, unspecified; Z98.1 Arthrodesis status; D64.9 Anemia, unspecified; E87.6 Hypokalemia; K59.00 Constipation, unspecified; I48.91 Unspecified atrial fibrillation
CPT/HCPCS: 36415; 36416; 51702; 71275; 74022; 74176; 80048; 80053; 80061; 81001; 82607; 82746; 82962; 83036; 83540; 83550; 83605; 83735; 83880; 84443; 85014; 85018; 85025; 85378; 93005; 93306; 94640; 94760; 96365; 97110; 97116; 97161; 99285; C9113; J1885; J2270; J2360; J2405; J2765; J3010; J3480; J3490; J7040; J7042; Q9967

== ENCOUNTER 2022-08-14 | Outpatient (CLI) | payer MEDICARE, MEDICAID, SELFPAY ==
[2022-08-14 15:56] LABS: Basophils # 0.1 10^3/uL (0.0-0.1); Basophils % 0.5 %; Eosinophils # 0.1 10^3/uL (0.0-0.8); Eosinophils % 0.4 %; Hematocrit 33.1 % (37.0-47.0); Hemoglobin 10.2 g/dL (11.5-15.3); Lymphocytes # 1.9 10^3/uL (0.8-4.8); Lymphocytes % 16.2 %; Mean Corpuscular HGB Conc 30.8 g/dL (30.0-36.0); Mean Corpuscular Hemoglobin 29.8 pg (28.0-34.0); Mean Corpuscular Volume 96.8 fl (81-99); Mean Platelet Volume 9.1 fL (7.4-10.4); Monocytes # 0.6 10^3/uL (0.2-0.9); Monocytes % 5.1 %; Neutrophils # 9.02 10^3/uL (1.8-7.7); Nucleated Red Blood Cells % 0 %; Platelet Count 666 10^3/cmm (130-400); Red Blood Count 3.42 10^6/uL (4.1-5.3); Red Cell Distribution Width 14.7 % (12.1-15.1); White Blood Count 11.7 10^3/uL (4.0-10.0)
[2022-08-14 16:21] LABS: Alanine Aminotransferase 8 U/L (0-33); Albumin Level 2.8 g/dL (3.5-5.2); Alkaline Phosphatase 352 U/L (35-105); Anion Gap 14.8 (5-19); Aspartate Amino Transferase 18 U/L (0-32); Blood Urea Nitrogen 13 mg/dL (8-23); Calcium 8.8 mg/dL (8.5-10.5); Carbon Dioxide 26 mmol/L (22-29); Chloride 99 mmol/L (98-107); Globulin 3.4 g/dL (1.3-4.6); Glomerular Filtration Rate 55.6 mL/min (90-130); Glucose 105 mg/dL (65-115); Osmolality Calculated 282 mOsm/kg (285-295); Potassium 3.8 mmol/L (3.5-5.1); Sodium 136 mmol/L (136-145); Total Bilirubin 0.2 mg/dL (0.15-1.2); Total Protein 6.2 g/dL (6.6-8.7)
== END 2022-08-14 17:00 | disposition home or self-care (01) ==
LOC: LAB 09-21 11:41
PROVIDERS: PCP Nurse Practitioner Family; Visit Provider Family Medicine
DX: E87.6 Hypokalemia (principal); R53.83 Other fatigue
CPT/HCPCS: 80053; 85025

== ENCOUNTER → 2022-08-18 14:32 | Outpatient (BNVA) | payer MEDICARE, MEDICAID, SELFPAY | PROVIDERS: PCP Nurse Practitioner Family; Visit Provider Orthopaedic Surgery | DX: Z47.89 Encounter for other orthopedic aftercare (principal); Z98.1 Arthrodesis status | CPT/HCPCS: 72100; 99024 ==

== ENCOUNTER 2022-08-18 15:39 | Outpatient (CLI) | payer MEDICARE, MEDICAID, SELFPAY | END 2022-08-18 15:40 | disposition home or self-care (01) | LOC: SPT 15:40 | PROVIDERS: PCP Nurse Practitioner Family; Visit Provider Orthopaedic Surgery | DX: Z46.89 Encounter for fitting and adjustment of other specified devices (principal); M43.25 Fusion of spine, thoracolumbar region; Z98.1 Arthrodesis status | CPT/HCPCS: 97760; L0456 ==

== ENCOUNTER → 2022-09-01 14:30 | Outpatient (BNVA) | payer MEDICARE, MEDICAID, SELFPAY | PROVIDERS: PCP Nurse Practitioner Family; Visit Provider Orthopaedic Surgery | DX: Z98.1 Arthrodesis status (principal); M43.25 Fusion of spine, thoracolumbar region; Z47.89 Encounter for other orthopedic aftercare | CPT/HCPCS: 72100; 99024 ==

== ENCOUNTER 2022-10-20 16:09 | Outpatient (CLI) | payer MEDICARE, MEDICAID, SELFPAY ==
--- NOTE | 2022-10-20 16:15 | CTR_ITS ---
PROCEDURE INFORMATION: Exam: CT Abdomen And Pelvis Without And With Contrast Exam date and time: 10/20/2022 4:40 PM Age: 67 years old Clinical indication: Condition or disease; Kidney or ureter condition; Other: Renal lesion; Prior surgery; Surgery date: 6+ months; Surgery type: Back, gb, hyst, bladder tuck TECHNIQUE: Imaging protocol: Computed tomography of the abdomen and pelvis without and with contrast. 3D rendering (Not supervised by radiologist): MIP and/or 3D reconstructed images were created by the technologist. Radiation optimization: All CT scans at this facility use at least one of these dose optimization techniques: automated exposure control; mA and/or kV adjustment per patient size (includes targeted exams where dose is matched to clinical indication); or iterative reconstruction. Contrast material: OMNI 350; Contrast volume: 95 ml; Contrast route: INTRAVENOUS (IV); REPORTING DATA: Count of CT and Cardiac NM exams in prior 12 months: This patient has received 3 known CTs and 0 known cardiac nuclear medicine studies in the 12 months prior to the current study. COMPARISON: 1. CT abdomen pelvis wo con [id number] 08/03/2022 12:[address] chest abd pel w con* 04/04/2022 4:[address] abdomen pelvis wo con [id number] 04/22/2016 12:13 PM RADIATION DOSE METRICS: Total DLP (mGy-cm): 1356.45 FINDINGS: Limitations: The absence of intravenous contrast lessens the sensitivity of this study for solid organ abnormalities. Extensive postsurgical changes in the lumbar spine with posterior spinal fusion from least T10 through S1. The metallic hardware causes streak artifact that obscures some portions of this examination. Lungs: There is calcified granuloma at the right lung base. Liver: The liver demonstrates punctate calcifications, consistent with remote granulomatous organism exposure. Gallbladder and bile ducts: There has been a cholecystectomy. Pancreas: The pancreas is normal. Spleen: The spleen demonstrates punctate calcifications, consistent with remote granulomatous organism exposure. Adrenal glands: The adrenal glands are normal. Kidneys and ureters: There is a 13 mm sized cyst upper pole of the right kidney with some smooth wall thickening and possibly mild mural calcification (Bosniak 2 F) this is unchanged compared with 04/04/2022.There is no evidence of hydronephrosis. There is no evidence of renal or ureteral calcifications. There are other small benign-appearing simple cortical cysts in both kidneys unchanged from previous. A 2.4 cm sized cyst benign-appearing simple cyst of the lower pole of the left kidney was previously 2.2 cm on 04/04/2022 but is otherwise unchanged. Stomach and bowel: There is no evidence of colitis/diverticulitis. There is no evidence of intestinal obstruction. Appendix: A normal appendix is identified. Intraperitoneal space: There is no evidence of free intraperitoneal fluid. Vasculature: The aorta demonstrates moderate atherosclerotic calcification. There is mild ectasia of the distal abdominal aorta measuring 2.6 cm. Lymph nodes: There is no evidence of lymphadenopathy. Urinary bladder: Unremarkable as visualized. Reproductive: There has been a hysterectomy. Bones/joints: There are extensive postsurgical changes in the lumbar spine with spinal fusion not completely imaged but extending at least from T10 through S1 with multiple levels of laminectomy in the lower lumbar spine and some residual seroma posteriorly. Compared with 08/03/2022 there has been some decrease in the seroma. Bilateral old healed rib fractures are again identified. There is a peripherally calcified cyst or mass anterior to the left hip slightly smaller than on 04/04/2022. This could represent calcified synovial cyst or could be the result of remote trauma. No acute fracture is demonstrated. Soft tissues: See Bones/joints finding. CT/CT abdomen pelvis wo/w [id number] IMPRESSION: 1. Stable appearing lesion in the upper pole of the right kidney (Bosniak 2 F) additional six-month follow-up recommended in than if unchanged annually afterwards for total of 5 years follow-up. 2. Stable postsurgical changes in the lumbar spine. 3. Aortic atherosclerotic disease and mild ectasia not significantly changed. 4. Other chronic findings as described above. 5. No acute finding. COMMENTS: Consistent with the [employer]'s Incidental Findings Committee white paper (J Am Yrn Radiol 2018): Any incidental renal lesion less than 1 cm or classified as too small to characterize, or any incidental cystic renal lesion characterized as simple-appearing, is likely benign. No follow-up imaging is recommended for these lesions per consensus recommendations based on imaging criteria.
[2022-10-20 16:38] LABS: Blood Urea Nitrogen 11 mg/dL (8-23); Glomerular Filtration Rate 55.6 mL/min (90-130)
[2022-10-20] MEDS: iohexol 350 mg/mL 500 mL Btl (per mL) IV (16:45)
== END 2022-10-20 16:10 | disposition home or self-care (01) ==
LOC: RAD 16:11
PROVIDERS: PCP Nurse Practitioner Family; Visit Provider Urology
DX: N28.9 Disorder of kidney and ureter, unspecified (principal); Z98.890 Other specified postprocedural states; I70.0 Atherosclerosis of aorta; I77.811 Abdominal aortic ectasia
CPT/HCPCS: 74178; 82565; 84520; Q9967

== ENCOUNTER → 2022-11-05 14:13 | Outpatient (BNVA) | payer MEDICARE, MEDICAID, SELFPAY | PROVIDERS: PCP Nurse Practitioner Family; Visit Provider Orthopaedic Surgery | DX: M43.25 Fusion of spine, thoracolumbar region (principal); Z98.1 Arthrodesis status | CPT/HCPCS: 72100; 99024 ==

== ENCOUNTER → 2022-12-09 10:59 | Outpatient (BNVA) | payer MEDICARE, MEDICAID, SELFPAY | PROVIDERS: PCP Nurse Practitioner Family; Visit Provider Physician Assistant | DX: Z98.1 Arthrodesis status (principal); M43.25 Fusion of spine, thoracolumbar region | CPT/HCPCS: 72100; 99213 ==

== ENCOUNTER → 2023-01-19 16:54 | Outpatient (BNVA) | payer MEDICARE, MEDICAID, SELFPAY | PROVIDERS: PCP Nurse Practitioner Family; Visit Provider Nurse Practitioner Family | DX: M25.50 Pain in unspecified joint (principal) | CPT/HCPCS: 80053; 85025; 85651; 86038; 86140; 86431 ==

== ENCOUNTER 2023-02-11 12:01 | Outpatient (CLI) | payer MEDICARE, MEDICAID, SELFPAY ==
[2023-02-11 12:31] LABS: Basophils # 0.1 10^3/uL (0.0-0.1); Basophils % 0.5 %; Eosinophils # 0.1 10^3/uL (0.0-0.8); Eosinophils % 0.8 %; Hematocrit 40.2 % (36-47); Lymphocytes % 27.2 %; Mean Corpuscular HGB Conc 31.8 g/dL (30-55); Mean Platelet Volume 9.5 fL (7.4-10.4); Monocytes # 0.7 10^3/uL (0.2-0.9); Monocytes % 6.5 %; Neutrophils # 7.21 10^3/uL (1.8-7.7); Neutrophils % 64.6 %; Nucleated Red Blood Cells % 0 %; Platelet Count 311 10^3/cmm (157-399); Red Blood Count 4.57 10^6/uL (3.85-5.65); Red Cell Distribution Width 15.9 % (12.1-15.1); White Blood Count 11.17 10^3/uL (3.29-11.43)
[2023-02-11 12:54] LABS: C Reactive Protein 35.4 mg/L (0.0-4.9)
== END 2023-02-11 12:02 | disposition home or self-care (01) ==
PROVIDERS: PCP Nurse Practitioner Family; Visit Provider Nurse Practitioner Family
DX: D72.829 Elevated white blood cell count, unspecified (principal); R79.82 Elevated C-reactive protein (CRP); Z98.1 Arthrodesis status; M54.50 Low back pain, unspecified; M54.6 Pain in thoracic spine
CPT/HCPCS: 36415; 72100; 85025; 86140; 99213

== ENCOUNTER 2023-03-04 13:03 | Outpatient (CLI) | payer MEDICARE, MEDICAID, SELFPAY ==
--- NOTE | 2023-03-04 14:00 | US_ITS ---
WS: [id number] INDICATION: Palpable lump RIGHT hip TECHNIQUE: Ultrasound soft tissue of concern FINDINGS: Ultrasound soft tissue area of concern RIGHT hip. Ultrasound demonstrates normal underlying subcutaneous tissue. Ultrasound of the palpable lump demonstrates an ovoid echogenic lesion compatib le with lipoma measuring approximately 2.7 x 1.0 x 1.8 cm IMPRESSION: Palpable lump appears to represent an ovoid lipoma measuring approximately 2.7 x 1.0 x 1 .8 cm
== END 2023-03-04 13:04 | disposition home or self-care (01) ==
PROVIDERS: PCP Nurse Practitioner Family; Visit Provider Nurse Practitioner Family
DX: R22.41 Localized swelling, mass and lump, right lower limb (principal)
CPT/HCPCS: 76882

== ENCOUNTER 2023-03-09 06:00 | Outpatient (RCR) | payer MEDICARE, MEDICAID, SELFPAY | END 2023-03-16 23:59 | disposition home or self-care (01) | LOC: WPT 06:00 | PROVIDERS: PCP Nurse Practitioner Family; Visit Provider Orthopaedic Surgery | DX: M43.25 Fusion of spine, thoracolumbar region (principal) | CPT/HCPCS: 97110; 97112; 97162; 97530 ==

== ENCOUNTER 2023-03-17 06:00 | Outpatient (RCR) | payer MEDICARE, MEDICAID, SELFPAY | END 2023-04-15 23:59 | disposition home or self-care (01) | LOC: WPT 06:00 | PROVIDERS: PCP Nurse Practitioner Family; Visit Provider Orthopaedic Surgery | DX: M43.25 Fusion of spine, thoracolumbar region (principal) | CPT/HCPCS: 97110; 97112; 97530 ==

== ENCOUNTER → 2023-03-26 09:42 | Outpatient (BNVA) | payer MEDICARE, MEDICAID, SELFPAY | PROVIDERS: PCP Nurse Practitioner Family; Referring Provider Nurse Practitioner Family; Visit Provider Surgery | DX: R22.41 Localized swelling, mass and lump, right lower limb | CPT/HCPCS: 99204 ==

== ENCOUNTER 2023-04-21 09:54 | Day surgery (SDC) | payer MEDICARE, MEDICAID, SELFPAY ==
[2023-04-21] VITALS (10 sets, daily range): BP systolic 125–184; BP diastolic 74–99; PULSE 54–85; RESP 15–18; TEMP 36.1–36.7; O2SAT 94–99; BMI 19.9
--- OUTSIDE RECORDS SUMMARY | 2023-04-21 09:56 | XMS_ITS | Patient Health Record ---
Author Name Unknown Organization [facility] Address [address] [place] [address] Care Team Providers Care Mechanical Shovel Operator Name Role Phone Shravan WHITING-Phyllis Kaiser Primary Care Provider Unav ailable DunawayMarcos oakes Unavailable [phone] ALLERGIES Allergen (clinical drug ingredient) Drug/Non Drug Allergy documented on EMR Reaction Allergy Type Onset Date Status nitrofurantoin Nitrofurantoin SOB Drug Allergy Active RESULTS Component Value Reference Range Notes UA Without Micro-Auto [id number] Reviewed date:09/24/2022 02:33:10 PM Interpretation: Performing Lab: Notes/Report: Color yellow Clarity clear Glucose - Bili - Ketones - Sp [place] 1.015 Blood - pH 6.0 Protein - Urobili - Nitrites - Leukocytes - REASON FOR REFERRAL Reason Kidney Cyst Diagnosis 1 Cyst of kidney, acqu ired (N28.1) Referring Provider First Name Phyllis Referring Provider Last Name Shravan Referring Provider Speciality Nurse Prac titioner Referred Organization [facility] Referred Provider Marcos Dunaway Referred Address [address] [facility],[address], Referred Provider Specialty Urology Referral Priority Routine MEDICATIONS Medication SIG (Take, Route, Frequency, Duration) Notes Start Date End Date Status Budesonide ER Active dilTIAZem HCl Active Potassium Chloride A ctive hydroCHLOROthiazide Active Metoprolol Succinate ER Active Citalopram Hydrobromide Active RABEprazole Sodium 20 MG 1 tablet Orally Once a day Active HYDROcodone-Acetaminophen 5- 325 MG 1 tablet as needed Orally every 8 hrs Active Lisinopril Active SOCIAL HISTORY Tobacco Use: Social History Observation Description Date Details (start date - stop date) Never Smoker NA - NA Sex Assigned At : Social History Observation Description Sex Assigned At Unknown Tobacco Use/Smoking Question Answer Notes Are you a nonsmoker Alcohol Screen (Audit-C) Question Answer Notes Did you have a drink containing alcohol in the p ast year? No Points 0 Interpretation Negative PROBLEMS Problem Type ICD Code Onset Dates Problem Status W/U Status Risk SNOMED Code Notes Problem Cyst of kidney, acquired (N28.1) Active confirmed 815795781 Problem Chronic kidney disease, unspecified CKD stage (N18.9) Active confirmed 913133721 Problem Recurrent UTI (N39.0) Active confirmed Recurrent urinary tract infection (058993739) Problem Renal cyst, left (N28.1) Active confirmed 540763507 Problem Bladder prolapse, female, acquired (N81.10) Active confirmed Midline cystocele (073040375) Problem Renal lesion (N28.9) Active confirmed Disorder of kidney and/or ureter (108745734) Problem Kidney cyst, acquired (N28.1) Active confirmed Acquired renal cystic disease (110765620) VITAL SIGNS Heart Rate 82 /min 10/21/2022 Temperature 97.6 degrees Fahrenheit 09/23/2022 Height-cm 175.26 cm 10/21/2022 Blood pressure diastolic 59 mm Hg 10/21/2022 Weight-kg 78.47 kg 09/23/2022 Height 69 in 10/21/2022 Blood pressure systolic 123 mm Hg 10/21/2022 Weight 173 lbs 09/23/2022 BMI 25.54 kg/m2 09/23/2022 Encounters Encounter Location Date Provider Diagnosis [facility] [address] [place] [address], [place] [address] 05/25/2022 [facility] [address] [place] [address] 09/24/2022 [facility] [address] [place] [address], [place] [address] 09/23/2022 Marcos Dunaway Renal lesion N28.9 ; Bladder prolapse, female, acquired N81.10 and Recurrent UTI N39.0 [facility] [address] [place] [address] 10/21/2022 Marcos Dunaway Renal lesion N28.9 ; Renal cyst, left N28.1 and Chronic kidney disease, unspecified CKD stage N18.9 ASSESSMENTS Encounter Date Diagnosis Assessment Notes Treatment Notes Treatment Clinical Notes 09/23/2022 Bladder prolapse, female, acquired (ICD-10 - N81.10) 09/23/2022 Renal lesion (ICD-10 - N28.9) 10/21/2022 Renal cyst, left (ICD-10 - N28.1) 10/21/2022 Renal lesion (ICD-10 - N28.9) 10/21/2022 Chronic kidney disease, unspecified CKD stage (ICD-10 - N18.9) 09/23/2022 Recurrent UTI (ICD-10 - N39.0) PLAN OF TREATMENT Pending Test Test Name Order Date Blood Urea Nitrogen (BUN) 96287 09/24/19 23 Creatinine (B) 16916 09/23/2022 CT Abdomen, Pelvis w/ + w/o Contrast-[id number] 09/23/2022 Future Test Test Name Order Date Blood Urea Nitrogen (BUN) 48566 02/23/20 23 Creatinine (B) 45508 02/22/2023 CT Abdomen, Pelvis w/ + w/o Contrast-[id number] 02/22/2023 Insurance Providers Payer Name Payer Address Payer Phone Subscriber Number Group Number Insured Name Patient Relationship to Insured Coverage Start Date Coverage End Date [place] Medicare [address] [place] [address] [id number] KaranLois monique Self - patient is the insured [place] Medicaid [address] [place] [address] [id number] Lois Russo Self - patient is the insured MEDICAL (GENERAL) HISTORY Medical History History ICD Code fx ribs anxiety Back Trouble hx stomach ulcers cardiac murmur hypertension Surgical History Surgery Date(Month/Year) tonsillectomy bladder repair surgery cholecystectomy hysterectomy back surgery Hospitalization History Reason Date(Month/Year) surgeries
[2023-04-21] MEDS: sodium chloride 0.9% 1,000 ML 30 ML IV (10:45)
--- NOTE | 2023-04-21 11:22 | P.HPUD_ITS ---
Surgery/Procedure H&P Update DATE OF PROCEDURE: April 21, 2023 DATE H&P PERFORMED: 03/26/23 H&P UPDATE INFORMATION: I have reviewed H&P completed within last 30 days, I have examined patient prior to procedure, No changes to prior documentation and [place] [facility] [place] indicated PLANNED PROCEDURE: Operation Date: 04/21/23 11:35 Proposed Procedures p 91298 excision right lower extremity mass R22.41(Right) - David Lemus MD
--- NOTE | 2023-04-21 11:34 | ANES.PREANE2 ---
Pre-Anesthetic Assessment Height/Weight: Height 1.75 m Weight 61.235 kg Temp Pulse Resp BP Pulse Ox O2 Del Method 98.1 F 54 L 16 184/99 97 Room Air 04/21/23 10:33 04/21/23 10:33 04/21/23 10:33 04/21/23 10:33 04/21/23 10:33 04/21/23 10:33 Operation Date: 04/21/23 11:35 Proposed Procedures p 32643 excision right lower extremity mass R22.41(Right) - David Lemus MD Familial anesthetic complications: none Was Beta Nikhil taken within 24 hours: Yes Was Clonidine taken within 24 hours: N/A Last intake: Intake Last Liquid Date 04/20/23 Last Liquid Time 20:00 Last Solid Date 04/20/23 Last Solid Time 20:00 Social Tobacco and No alcohol Exam alert, oriented x 3 and regular rate & rhythm Airway Submandibular: within normal limits Cervical ROM: within normal limits Mallampati: Class I Dentition: false Pulmonary Chronic Obstructive Pulmonary Disease CV/HEM Atrial Fibrillation and Hypertension GI Gastroesophageal Reflux Disease Musc/skel Lower Back Pain and Osteoarthritis/DJD Neuropsych Anxiety and Depression Anesthetic Plan ASA status: 3 Anesthesia: Choice Medications/Allergies Home Medications Medication Instructions Recorded Confirmed Last Taken Type Bone Growth Stimulator E0748 #1 ea 07/13/22 04/13/23 Unknown Rx biotin 1 mg capsule 1 mg PO DAILY 08/01/22 04/21/23 04/20/23 History cholecalciferol (vitamin D3) 50 50 mcg PO DAILY 08/01/22 04/21/23 04/20/23 History mcg (2,000 unit) tablet (Vitamin D3) wheelchair #1 ea 08/11/22 04/13/23 Unknown Rx TLSO Brace #1 ea 08/18/22 04/13/23 Unknown Rx multivitamin 1 tab PO DAILY 04/13/23 04/21/23 04/20/23 History rabeprazole 20 mg tablet,delayed 20 mg PO DAILY #90 tabs 04/13/23 04/21/23 04/20/23 Rx release hydrocodone 5 mg-acetaminophen 325 1 tab PO Q4H PRN pain 5 days #30 04/14/23 04/21/23 04/20/23 Rx mg tablet tabs metoprolol tartrate 25 mg tablet See Rx Instructions .Route 04/15/23 04/21/23 04/21/23 Rx .COMPLEX #60 tabs budesonide 3 mg 6 mg PO DAILY 04/21/23 04/21/23 04/20/23 History capsule,delayed,extended release citalopram 20 mg tablet 20 mg PO DAILY 04/21/23 04/21/23 04/20/23 History diltiazem HCl 300 mg 300 mg PO DAILY 04/21/23 04/21/23 04/21/23 History capsule,extended release 24 hr lisinopril 40 mg tablet 40 mg PO DAILY 04/21/23 04/21/23 04/20/23 History potassium chloride 10 mEq 10 meq PO DAILY 04/21/23 04/21/23 04/20/23 History tablet,extended release(part/cryst) Allergies Allergy/AdvReac Type Severity Reaction Status Date / Time nitrofurantoin AdvReac sob Verified 04/21/23 10:29 [From Macrobid] Current Medications Generic Name Dose Route Start Last Admin Trade Name Farhanq PRN Reason Stop Dose Admin Sodium Chloride 1,000 mls @ 30 mls/hr 04/21/23 10:30 04/21/23 10:45 Sodium Chloride 0.9% IV 04/22/23 10:29 30 mls/hr .Q24H JONO Administration PFSH Anesthesia Medical History (Updated 04/14/23 @ 08:17 by HENOK Fatima) Hypertension Low back pain GERD (gastroesophageal reflux disease) Hx of cardiac murmur Back pain with history of spinal surgery History of stomach ulcers Anxiety Surgical History History of esophagogastroduodenoscopy (EGD) 3-4 yrs ago Hx of colonoscopy with polypectomy 3-4 yrs ago Hx of bladder repair surgery Hx of cholecystectomy Hx of hysterectomy History of tonsillectomy Previous back surgery Family History Father CAD (coronary artery disease) Mother No problems noted. Social History Smoking and tobacco/nicotine status: current every day tobacco/nicotine user Alcohol intake: never Substance/Drug Use: never Data Anesthesia Cardiac Studies: Echocardiogram 08/05/22
[2023-04-21] MEDS: ceFAZolin 2,000 MG in sodium chloride 0.9% (plus) 50 ML 100 MG IV (11:53)
[2023-04-21] MEDS: lidocaine-epi 2% 20 mL INJ INJECTION (12:15)
[2023-04-21] MEDS: BUPivacaine 0.25% INJ 10 mL INJECTION (12:15)
--- NOTE | 2023-04-21 12:45 | PM.OP ---
Operative Report Date of procedure: April 21, 2023 Pre-op diagnosis: right thigh nodule Post-op diagnosis: Right thigh subfascial nodule Post-op findings: a 2x2cm subfascial mass was noted and excised Procedure done: Excision of right thigh subfascial mass Specimens removed/disposition: Right thigh mass Surgeon: David Lemus MD Extension Course Coordinator: ONEAL OR Staff Estimated blood loss: 5 Complications: none Brief History: Is a 68-year-old female who presented to my clinic with a history of multiple subcutaneous nodules, the most remarkable along her right lower extremity, after discussion of the risk and benefits of decided to proceed with excision. Procedure: Patient was brought into the OR. She was given general anesthesia with LMA, patient was placed in the left lateral decubitus position, the skin of the right thigh was prepped and draped in the usual sterile fashion. The mass that was previously marked was identified, timeout was conducted. A 4 cm incision was made on the right side overlying the mass, the incision was deepened and the muscular fascia was identified, the muscular fascia was Opened with electrocautery, a hard nodule was identified at this location, the nodule appeared to be composed of fat and some solid components, the nodule was circumferentially dissected from the surrounding tissue and excised with electrocautery. The nodule was then passed to the scrub table to be sent to pathology. After excision hemostasis was achieved, no residual Nodularity was noted. The wound bed was irrigated with saline, I then proceeded to close the wound in layers using #3-0 Vicryl for the fascial layers and the subcutaneous layer and #4 Monocryl for the skin, Dermabond was applied. At the end of the procedure all counts were correct. The patient was extubated and transferred to the PACU in stable condition.
--- NOTE | 2023-04-21 16:56 | ANE.PACU2 ---
Inpatient post-anesthesia follow up: Airway intact: Yes Vital signs: Temperature 97 F Pulse Rate 70 Respiratory Rate 16 Blood Pressure 132/78 Pulse Oximetry 96 Oxygen Delivery Me thod Room Air Oxygen Flow Rate Fraction of Inspir ed Oxygen Hydration adequate: Yes Nausea and vomiting: No Pain level: 2 Mental status: Baseline
== END 2023-04-21 13:37 | disposition home or self-care (01) ==
PROVIDERS: PCP Nurse Practitioner Family; Visit Provider Surgery
PROC: (CPT 11402; principal; 2023-04-21 11:25)
DX: R22.41 Localized swelling, mass and lump, right lower limb (principal); J44.9 Chronic obstructive pulmonary disease, unspecified; I48.91 Unspecified atrial fibrillation; I10 Essential (primary) hypertension; K21.9 Gastro-esophageal reflux disease without esophagitis; F17.210 Nicotine dependence, cigarettes, uncomplicated
CPT/HCPCS: 11402; 12032; 88307; 88312; J0690; J1100; J2405; J2704; J3010; J3490; J7030

== ENCOUNTER → 2023-05-06 08:32 | Outpatient (BNVA) | payer MEDICARE, MEDICAID, SELFPAY | PROVIDERS: PCP Nurse Practitioner Family; Visit Provider Orthopaedic Surgery | DX: Z98.1 Arthrodesis status; Z47.89 Encounter for other orthopedic aftercare | CPT/HCPCS: 72100; 99214 ==

== ENCOUNTER 2023-05-17 06:00 | Outpatient (RCR) | payer MEDICARE, MEDICAID, SELFPAY | END 2023-06-16 23:59 | disposition home or self-care (01) | LOC: WPT 06:00 | PROVIDERS: PCP Nurse Practitioner Family; Visit Provider Orthopaedic Surgery | DX: M43.25 Fusion of spine, thoracolumbar region (principal) | CPT/HCPCS: 97110; 97112; 97164; 97530 ==

== ENCOUNTER → 2023-05-20 14:12 | Outpatient (BNVA) | payer MEDICARE, MEDICAID, SELFPAY | PROVIDERS: PCP Nurse Practitioner Family; Visit Provider Surgery | DX: R22.41 Localized swelling, mass and lump, right lower limb (principal); Z98.890 Other specified postprocedural states | CPT/HCPCS: 99024 ==

== ENCOUNTER → 2023-06-10 08:29 | Outpatient (BNVA) | payer MEDICARE, MEDICAID, SELFPAY | PROVIDERS: PCP Nurse Practitioner Family; Visit Provider Orthopaedic Surgery | DX: M43.25 Fusion of spine, thoracolumbar region (principal) | CPT/HCPCS: 72100; 99213 ==

== ENCOUNTER → 2023-06-16 12:22 | Outpatient (BNVA) | payer MEDICARE, MEDICAID, SELFPAY | PROVIDERS: PCP Nurse Practitioner Family; Referring Provider Nurse Practitioner Family; Visit Provider Internal Medicine | DX: R07.9 Chest pain, unspecified (principal); I35.0 Nonrheumatic aortic (valve) stenosis; I10 Essential (primary) hypertension; I48.91 Unspecified atrial fibrillation; F17.200 Nicotine dependence, unspecified, uncomplicated; R00.1 Bradycardia, unspecified | CPT/HCPCS: 93005; 99204 ==

== ENCOUNTER 2023-06-17 06:00 | Outpatient (RCR) | payer MEDICARE, MEDICAID, SELFPAY | END 2023-07-15 23:59 | disposition home or self-care (01) | LOC: WPT 06:00 | PROVIDERS: PCP Nurse Practitioner Family; Visit Provider Orthopaedic Surgery | DX: M43.25 Fusion of spine, thoracolumbar region (principal) | CPT/HCPCS: 97110; 97112; 97530 ==

== ENCOUNTER 2023-06-23 14:28 | Outpatient (CLI) | payer MEDICARE, MEDICAID, SELFPAY ==
--- NOTE | 2023-06-23 14:30 | USCV_ITS ---
Lois Russo Age: 68 Gender: F : 1955 Exam Date: 06/23/2023 13:42 Ordering Phys: Benito Reyes M.D ([email or web address]) Technologist: Exam [place] [facility] [place] Indication: chest pain BP: / HR: 28 Rhythm: Sinus Technical Quality: Adequate MEASUREMENTS (Male / Female) Normal Values 2D ECHO LV Diastolic Diameter PLAX 5.3 cm 4.2 - 5.9 / 3.9 - 5.3 cm IVS Diastolic Thickness 1.2 cm 0.6 - 1.0 / 0.6 - 0.9 cm IVS Systolic Thickness 1.3 cm LVPW Diastolic Thickness 1.4 cm 0.6 - 1.0 / 0.6 - 0.9 cm LVPW Systolic Thickness 1.6 cm LVOT Diameter 2.0 cm LV Ejection Fraction 2D Teich 71.4 % Aorta at Sinotubular Diameter 3.5 cm IVC Diameter 1.1 cm M-MODE LA Ao Ratio MM 0.7 AV Cusp Separation MM 1.3 cm DOPPLER AV Area Cont Eq vti 0.6 cm squared AV Area Cont Eq pk 0.5 cm squared MV Area PHT 2.1 cm squared Mitral E to A Ratio 0.8 TR Peak Velocity 107.0 cm/s TR Peak Gradient 4.6 mmHg PV Peak Velocity 97.0 cm/s FINDINGS Left Ventricle Left ventricle is normal in size. LV systolic function is normal with EF of 55 to 60%. No regional wall abnormalities are seen. Grade 1 diastolic dysfunction. Right Ventricle Normal in size and function Right Atrium Normal in size Left Atrium Normal in size Mitral Valve Structurally normal mitral valve. Aortic Valve Aortic valve is thickened and calcified. Severe aortic stenosis with aortic valve area of 0.58 cm squared and mean gradient across aortic valve of 49 mmHg. Tricuspid Valve Mild tricuspid regurgitation. Pulmonary artery systolic pressure is normal. Pulmonic Valve Not well visualized Pericardium Normal Aorta Normal in size IVC Appears to be normal CONCLUSIONS LV systolic function is normal with EF of 55 to 60%. Grade 1 diastolic dysfunction. Severe aortic stenosis with aortic valve area 0.58cm2 and mean gradient 49 mmHg. Mild mild tricuspid regurgitation Compared to prior echocardiogram from 2022, aortic stenosis has worsened. Benito Reyes MD (Electronically Signed) Final Date: 01 July 2023 09:25 S
== END 2023-06-23 14:29 | disposition home or self-care (01) ==
LOC: RAD 14:28
PROVIDERS: PCP Nurse Practitioner Family; Visit Provider Internal Medicine
DX: R06.02 Shortness of breath (principal); R07.9 Chest pain, unspecified
CPT/HCPCS: 93306

== ENCOUNTER → 2023-06-25 09:56 | Outpatient (BNVA) | payer MEDICARE, MEDICAID, SELFPAY | PROVIDERS: PCP Nurse Practitioner Family; Visit Provider Orthopaedic Surgery | DX: M54.41 Lumbago with sciatica, right side (principal); G89.29 Other chronic pain; M43.25 Fusion of spine, thoracolumbar region | CPT/HCPCS: 99214 ==

== ENCOUNTER 2023-07-01 08:51 | Outpatient (CLI) | payer MEDICARE, MEDICAID, SELFPAY ==
--- NOTE | 2023-07-01 09:00 | XACV_ITS ---
Exam Room: 2 Ht: 175 cm Wt: 59 kg BSA: 1.69 m2 Gender: Female : 1955 Any Known Allergies: Other Exam Priority: Routine Procedure(s): Procedure Description: Diagnostic procedure Procedure Description: Right Heart Catheterization Procedure Description: O2 saturation Procedure Description: Coronary Angiography Diagnostic Cath Status: Elective Diagnostic Findings * INDICATION: Severe aortic stenosis with OSCAR of 0.58cm2 and mean gradient of 49mmHg. * No significant disease noted in the Left Main, Left Anterior Descending, Right, or Circumflex coronary arteries. Left dominant system with a small sized RCA.. * Right heart cath findings: * Mildly elevated right and left-sided cardiac pressures. 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 * Coronary angiography shows left dominance. Conclusions 1. No significant disease noted in the Left Main, Left Anterior Descending, Right, or Circumflex coronary arteries. Left dominant system with a small sized RCA.. 2. Mildly elevated right and left sided cardiac pressures. 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 Recommendations * Patient will be referred to have aortic valve replacement. * Outpatient cardiology follow up in 4 weeks. Interventional RX Recommendation: other cardiac therapy w/o CABG/PCI Diagnostic RX Recommendation: other cardiac therapy w/o CABG/PCI Anticoagulation: Heparin Pressures Phase:Rest AO : 154 / 75 ( 99 ) @ 10:28:00 AM RV : 40 / 1 / 12 @ 10:20:00 AM PA : 40 / 15 ( 27 ) @ 10:19:00 AM RA : a wave = 12 v wave = 13 mean = 10 @ 10:21:00 AM PCW : a wave = 17 v wave = 17 mean = 14 @ 10:19:00 AM O2 Content Phase:Rest PA : O2 Content O2: 66.4 @ 10:19:00 AM Saturations Phase:Rest AO : 92 @ 10:28:00 AM PA : 66 @ 10:19:00 AM Cardiac Output Phase:Rest Roxie : 3 @ 10:41:58 AM Roxie Cardiac Index: 2 @ 10:41:58 AM Flow Phase:Rest Qp : 3 @ 10:41:58 AM Qs : 3 @ 10:41:58 AM Clinical Evaluation EBL: 5mL-10mL Procedural Details Procedure Consent Obtained. Pre-Procedure Time Out. Identified patient by full name and date of as verbalized by the patient/guarantor. Does the consent match the physician's order: Yes. Accurate & Complete Informed Consent: Yes. Inpatient/Outpatient History & Physical on Chart: Yes. If H&P is completed, is and addenduem needed: No; If yes, is the addendum complete: N/A. Visualize and Verify Site with Patient/Guarantor: N/A. Relevant Radiology Images available: Yes. Pre-op teaching completed and patient verbalized understanding. The risks, benefits, and alternatives of sedation and/or procedure were discussed by physician. The patient agrees to continue. Procedure started. Physician arrived. [facility] Clinical Fraility Score: 3: Managing Well. Fisher Oyster Indications: Valvular Disease, Severe Aortic Stenosis. Chest Pain Symptom Assessment: Asymptomatic. Correct patient, site and procedure confirmed by cath team. PERRLA. Strong, equal hand first crusher bilaterally. Lungs clear x 5 lobes. IV Site on Arrival: 20 gauge in the right anticubital. IV Site on Arrival: 20 gauge in the left anticubital. IV Fluids: 0.9% NaCl at KVO. 0 mL infused prior to tin can laborer. Pre Procedural Pulses: bilateral dorsalis pedis was 3+. Pre Procedural Pulses: bilateral posterior tibial was 3+. Pre Procedural Pulses: bilateral radial was 3+. Oxygen started at 2liters/min via nasal canula. right groin was prepped with chloroprep then draped in the usual sterile fashion. right radial was prepped with chloroprep then draped in the usual sterile fashion. right brachial was prepped with chloroprep then draped in the usual sterile fashion. Baseline sample Acquired. HR: 56 BPM. Physician scrubbed in. Immediate Pre-Procedure Time Out. Correct Patient: Yes; Correct Procedure: Yes; Correct Site: Yes; Correct Patient Position: Yes; Correct Supplies: Yes; Dried Flammable Prep: Yes; Blood Products Available: N/A;. Bianca Lagos RT(R) was relieved by Pallavi Carver RN as monitoring person. Lidocaine 1% infiltrated to the right brachial. Tuttle-Erika MON catheter inserted. [place] guidewire in through swanz catheter. [place] wire out. Pressure measurements obtained. Oximetry samples were obtained on room air. Normal venous range: 60-85%. Normal arterial range: 95-100%. Tuttle-Erika out. Lidocaine 1% infiltrated to the right radial. Arterial access obtained. Oximetry samples were obtained. Normal venous range: 60-85%. Normal arterial range: 95-100%. A 5 malagasy TIG catheter in over wire. Multiple views taken of left coronary artery. Catheter redirected to the RCA. Catheter removed over the exchange wire. A 5 malagasy JR4 catheter in over wire. View taken of right coronary artery. Catheter removed over the exchange wire. Physician scrubbed out. A TR Band was successful obtaining hemostatsis at the Right Radial artery insertion site. A Manual Compression was successful obtaining hemostatsis at the Right Brachial Vein insertion site. Post Procedure: Pulses reassessed and unchanged. PERRLA. Strong, equal hand first crusher bilaterally. No VTE prophylaxis required. Post-op diagnosis: Non-obstructive CAD, Severe Aortic Stenosis, Normal cardiac pressures. Complications: None. Estimated blood loss: 5mL-10mL. Responsiveness - Normal response to verbal stimuli; alert and oriented, PERRLA. Airway - Unaffected, no intervention required; spontaneous ventilation. Circulation: W/N/L, pulses unchanged. Nausea/Vomiting: No. Medication's Wasted: Lidocaine 1% = 3 mL. Medication's Wasted: Nitro = 49.8 mg. Medication's Wasted: Heparin = 1000 units. Medication's Wasted: Other = Fentanyl 50mcg. Total IV fluids: 50 mL. Procedure completed. Patient transferred by bed to CPRU. Access Site Site: Right Brachial Vein Sheath Size: 6 Fr Hemostasis Method: Manual Compression Hemostasis Success: Successful Site: Right Radial artery Sheath Size: 6 Fr Hemostasis Method: TR Band Hemostasis Success: Successful Procedure Medications Start: 10:07 AM Stop: 10:07 AM Medication: Versed Amount: 1 mg Route: I.V. Start: 10:10 AM Stop: 10:10 AM Medication: Fentanyl Amount: 25 mcg Route: I.V. Start: 10:15 AM Stop: 10:15 AM Medication: Versed Amount: 1 mg Route: I.V. Start: 10:25 AM Stop: 10:25 AM Medication: Nitrogylcerin Amount: 200 mcg Route: I.A. Start: 10:27 AM Stop: 10:27 AM Medication: Fentanyl Amount: 25 mcg Route: I.V. Start: 10:27 AM Stop: 10:27 AM Medication: Heparin Amount: 5000 units Route: I.V. I, the attending physician, have reviewed and verified all procedure medications. Yes, all medications given per verbal order History/Risk Factors Hypertension: Yes Dyslipidemia: No Peripheral Arterial Disease (PAD): No Myocardial Infarction (KS): No Obesity: No Renal Disease: No Tobacco Use: Current/Recent(w/in 1 year) Prior Interventions PCI: No CABG: No Valve Surgery: No Report Signatures Finalized by Benito Reyes MD on 07/11/2023 10:27 AM
[2023-07-01] MEDS: aspirin 325 mg Tablet PO (09:03)
[2023-07-01] MEDS: diphenhydrAMINE 50 mg Capsule PO (09:03)
[2023-07-01 09:17] LABS: Basophils # 0.1 10^3/uL (0.0-0.1); Basophils % 0.4 %; Eosinophils # 0.1 10^3/uL (0.0-0.8); Eosinophils % 0.6 %; Hematocrit 42.5 % (36-47); Lymphocytes # 3.9 10^3/uL (0.8-4.8); Lymphocytes % 31.6 %; Mean Corpuscular HGB Conc 32.2 g/dL (30-55); Mean Corpuscular Hemoglobin 27.9 pg (27-33); Mean Corpuscular Volume 86.6 fl (85-98); Mean Platelet Volume 9.6 fL (7.4-10.4); Monocytes % 7.8 %; Neutrophils # 7.37 10^3/uL (1.8-7.7); Neutrophils % 59.3 %; Nucleated Red Blood Cells % 0 %; Platelet Count 382 10^3/cmm (157-399); Red Blood Count 4.91 10^6/uL (3.85-5.65); Red Cell Distribution Width 15.5 % (12.1-15.1); White Blood Count 12.43 10^3/uL (3.29-11.43)
[2023-07-01 09:20] VITALS: BP 191/91; PULSE 58; RESP 16; TEMP 37.1; O2SAT 95
[2023-07-01 09:36] LABS: Anion Gap 15.5 (5-19); Blood Urea Nitrogen 18 mg/dL (8-23); Calcium 9.1 mg/dL (8.5-10.5); Carbon Dioxide 26 mmol/L (22-29); Chloride 101 mmol/L (98-107); Glomerular Filtration Rate 55.5 mL/min (90-130); Glucose 99 mg/dL (65-115); Osmolality Calculated 290 mOsm/kg (285-295); Potassium 3.5 mmol/L (3.5-5.1); Sodium 139 mmol/L (136-145)
--- NOTE | 2023-07-01 10:04 | W.PM.OPSUD ---
Surgery/Procedure H&P Update DATE OF PROCEDURE: July 01, 2023 DATE H&P PERFORMED: 06/16/23 H&P UPDATE INFORMATION: I have reviewed H&P completed within last 30 days, I have examined patient prior to procedure and No changes to prior documentation PREOP DIAGNOSIS: Severe aortic stenosis PRIMARY INDICATION FOR PROCEDURE: Severe aortic stenosis PLANNED PROCEDURE: Operation Date: 07/01/23 10:00 Proposed Procedures p right and left heart cath 52092,I35.0(Bilateral) - Benito Reyes M.D Possible percutaneous coronary intervention PATIENT REASSESSED PRIOR TO SEDATION, WITH NO CHANGE NOTED: Yes PHYSICAL EXAM: alert, oriented x 3, clear to auscultation bilaterally and regular rate & rhythm OTHER PERTINENT EXAM FINDINGS: Grade 3/6 systolic murmur AIRWAY EVAL/ANESTHESIA PLAN: normal airway, ASA III, Local Anesthesia, Risks, benefits & alternatives of sedation and/or procedure discussed and Patient agrees to continue as planned ADDITIONAL INFORMATION: Moderate sedation
[2023-07-01 10:36] LABS: Arterial Blood Gas Hematocrit 38.9 % (37-47); Blood Gas Operator Identificat PULM ART; Blood Gas Sample Site Not specified; Blood Gas Sample Type Not specified; Carboxyhemoglobin 7.6 %THgb (0.4-20.1); HGB O2 Sat 60.8 % (95-100); Methemoglobin 0.7 % (0.4-1.5); Oxygen Device ROOM AIR; Total Hemoglobin 12.7 g/dL (12-16)
[2023-07-01 10:38] LABS: Arterial Blood Gas Hematocrit 37.2 % (37-47); Blood Gas Operator Identificat AO; Blood Gas Sample Site Not specified; Blood Gas Sample Type Not specified; Carboxyhemoglobin 7.6 %THgb (0.4-20.1); HGB O2 Sat 84.7 % (95-100); Methemoglobin 0.5 % (0.4-1.5); Oxygen Device ROOM AIR; Total Hemoglobin 12.1 g/dL (12-16)
[2023-07-01 10:50] VITALS: BP 157/71; PULSE 50; RESP 12; O2SAT 96
--- NOTE | 2023-07-01 10:53 | SUR.PHASEI ---
Received the patient back from the clinical laboratory scientist via wheelchair s/p Diagnostic [facility]. Patient ambulated to the cot without difficulty. A & 0 x 3. surveillance system monitor placed and vital signs obtained. TR band intact to the right wrist. No bleeding or hematoma noted. Palpable radial pulse. Bulky pressure dressing intact to the right brachial. No other assessment changes noted from pre cath assessment. Family at bedside. No concerns voiced at this time.
[2023-07-01 11:00] VITALS: BP 130/67; PULSE 52; RESP 13; O2SAT 95
[2023-07-01 11:15] VITALS: BP 124/70; PULSE 57; RESP 15; O2SAT 96
== END 2023-07-01 15:30 | disposition home or self-care (01) ==
LOC: CCL 08:51 → CSU 11:00
PROVIDERS: PCP Nurse Practitioner Family; Visit Provider Internal Medicine
DX: I35.0 Nonrheumatic aortic (valve) stenosis (principal); I10 Essential (primary) hypertension; I48.91 Unspecified atrial fibrillation
CPT/HCPCS: 36415; 80048; 82810; 85025; 93456; 96361; 96365; 99152; 99153; C1751; C1769; C1887; C1894; G0378; J1644; J2250; J3010; J3490; J7030; Q0163; Q9967

== ENCOUNTER 2023-07-08 15:03 | Outpatient (CLI) | payer MEDICARE, MEDICAID, SELFPAY ==
--- NOTE | 2023-07-08 15:30 | CT_ITS ---
WS: [id number] CT HEAD TECHNIQUE: Noncontrast CT of the head obtained from the skullbase to the vertex. CLINICAL INFORMATION: R51.9 - Headache, unspecified COMPARISON: None. DLP: 820.[address] scans at [facility] use at least one of these dose optimization techniques: automated e xposure control; mA and/or kV adjustment per patient size (includes targeted exams where dose is matc hed to clinical indication); or iterative reconstruction. FINDINGS: No evidence of intracranial hemorrhage or mass effect. Ventricular system and basal cisterns are will nt. Moderate small vessel changes with moderate parenchymal volume loss. No extra-axial fluid collect ions. No evidence of mass or mass effect. Mucosal thickening in the visualized paranasal sinuses. Frothy secretions in the RIGHT sphenoid sinus and partially visualized LEFT maxillary sinus compatible with sinusitis. Frontal sinuses are well ae rated. Mild mucosal thickening in the ethmoid air cells. Mastoid air cells are well aerated. IMPRESSION: 1. No evidence of intracranial hemorrhage or mass effect. 2. Moderate small vessel changes. Moderate parenchymal volume loss. 3. Intracranial vascular calcification. 4. Fluid with frothy secretions in the RIGHT sphenoid sinus, LEFT maxillary sinus compatible with si nusitis. 5. No acute intracranial findings.
== END 2023-07-08 15:04 | disposition home or self-care (01) ==
LOC: RAD 15:04
PROVIDERS: PCP Nurse Practitioner Family; Visit Provider Nurse Practitioner Family
DX: R51.9 Headache, unspecified (principal)
CPT/HCPCS: 70450

== ENCOUNTER 2023-07-09 10:33 | Outpatient (CLI) | payer MEDICARE, MEDICAID, SELFPAY ==
--- NOTE | 2023-07-09 11:00 | MR_ITS ---
WS: [id number] MRI LUMBAR SPINE NONCONTRAST HISTORY: Postop lumbar spine surgery. Multiple prior surgeries in the spine. COMPARISON: None available. TECHNIQUE: Sagittal and axial multisequence imaging is submitted. Mild narrowing of the central cervical canal. Marked increase in thoracic kyphosis. Extensive prior p osterior thoracic spine surgery. There is extensive hardware throughout the thoracolumbar spine extending from T10 through the sacrum. The spine hardware is causing significant artifact. Disc spaces the lumbar spine are poorly visualized. There is a very large fluid collection along the posterior lumbar spine extending over a length of 15 .6 cm. This fluid collection extends through the laminectomy defects in the decompression site to abu t the posterior thecal sac and arachnoid space. Depth of the fluid is 6.2 cm. Large laminectomy defects throughout the lumbar spine with a wide open thecal sac. There are small ce ntral disc protrusions noted at L1-2 and L2-3. IMPRESSION: 1. Extensive posterior decompression hardware from T10 through the sacrum. There is significant mika fact obscuring the central canal and foramina from the hardware. 2. There is a large contiguous fluid collection in the subcutaneous soft tissues of the lumbar spine extending over a length of 15.6 cm. This collection extends to the thecal sac through a large una ctomy defects. Cannot be further characterized otherwise. Differential would include postoperative se jenny, CSF leak and less likely abscess.
== END 2023-07-09 10:34 | disposition home or self-care (01) ==
LOC: RAD 10:34
PROVIDERS: PCP Nurse Practitioner Family; Visit Provider Orthopaedic Surgery
DX: M54.41 Lumbago with sciatica, right side (principal); G89.29 Other chronic pain
CPT/HCPCS: 72148

== ENCOUNTER → 2023-07-15 13:57 | Outpatient (BNVA) | payer MEDICARE, MEDICAID, SELFPAY | PROVIDERS: PCP Nurse Practitioner Family; Visit Provider Nurse Practitioner Family | DX: I35.0 Nonrheumatic aortic (valve) stenosis (principal) | CPT/HCPCS: 36415; 80048; 99214 ==

== ENCOUNTER 2023-07-16 06:00 | Outpatient (RCR) | payer MEDICARE, MEDICAID, SELFPAY | END 2023-08-15 23:59 | disposition home or self-care (01) | LOC: WPT 06:00 | PROVIDERS: PCP Nurse Practitioner Family; Visit Provider Orthopaedic Surgery | DX: M43.25 Fusion of spine, thoracolumbar region (principal); Z98.1 Arthrodesis status | CPT/HCPCS: 99214 ==

== ENCOUNTER 2023-09-07 16:01 | Outpatient (CLI) | payer MEDICARE, MEDICAID, SELFPAY | END 2023-09-07 16:02 | disposition home or self-care (01) | PROVIDERS: PCP Nurse Practitioner Family; Visit Provider Nurse Practitioner Family | DX: Z79.01 Long term (current) use of anticoagulants (principal) | CPT/HCPCS: 85610 ==

== ENCOUNTER 2023-09-09 15:37 | Outpatient (CLI) | payer MEDICARE, MEDICAID, SELFPAY ==
[2023-09-09 16:13] LABS: INR 2.31 (0.8-1.2)
== END 2023-09-09 15:38 | disposition home or self-care (01) ==
LOC: LAB 15:41
PROVIDERS: PCP Nurse Practitioner Family; Visit Provider Nurse Practitioner Family
DX: Z79.01 Long term (current) use of anticoagulants (principal)
CPT/HCPCS: 85610

== ENCOUNTER 2023-09-13 15:18 | Outpatient (CLI) | payer MEDICARE, MEDICAID, SELFPAY ==
[2023-09-13 16:00] LABS: INR 1.98 (0.8-1.2)
== END 2023-09-13 15:19 | disposition home or self-care (01) ==
PROVIDERS: PCP Nurse Practitioner Family; Visit Provider Nurse Practitioner Family
DX: Z79.01 Long term (current) use of anticoagulants (principal)
CPT/HCPCS: 85610

== ENCOUNTER → 2023-10-07 10:05 | Outpatient (BNVA) | payer MEDICARE, MEDICAID, SELFPAY | PROVIDERS: PCP Nurse Practitioner Family; Visit Provider Nurse Practitioner Family | DX: Z79.01 Long term (current) use of anticoagulants (principal); Z51.81 Encounter for therapeutic drug level monitoring | CPT/HCPCS: 85610 ==

== ENCOUNTER 2023-10-13 06:54 | Outpatient (CLI) | payer MEDICARE, MEDICAID, SELFPAY ==
--- NOTE | 2023-10-13 07:00 | CT_ITS ---
WS: [id number] CT HEAD NONCONTRAST HISTORY: S09.90XA - Unspecified injury of head, initial encounter, fall 1 week ago. TECHNIQUE: Contiguous axial imaging performed through the brain in 2.5 mm imaging. Bone and soft tiss ue windows. Sagittal and coronal reformats reviewed. All CT scans at [facility] use at least one of these dose optimization techniques: automated exposure control; mA and/or kV adjustment per pa tient size (includes targeted exams where dose is matched to clinical indication); or iterative recon struction. DLP: 1009.06 mGy.cm COMPARISON: 07/08/2023 No acute intracranial hemorrhage, midline shift or mass effect. Moderate atrophy and moderate small vessel ischemic disease. No edema. Ventricles: Normal size with no hydrocephalus. No inferior displacement of the cerebellar tonsils. Paranasal sinuses: Sinuses are well-aerated. Mucoperiosteal thickening in the sphenoid sinus with jaxon tral cyst frothy secretions. Mastoid air cells: Well pneumatized. Calvarium and scalp: Skull is intact with no soft tissue edema or swelling. There is a bulbous appearance of the nasopharyngeal soft tissues with mild increased attenuation. Thi s nodule measures 1.5 x 1.3 cm should be further evaluated for possible neoplasm. CT/CT head wo con* [id number] IMPRESSION: 1. No acute intracranial hemorrhage or edema. 2. Moderate atrophy and small vessel ischemic disease. Similar to the prior st udy. 3. Soft tissue nodule measures 1.5 x 1.3 cm in the nasopharyngeal region. This needs to be further evaluated for possible neoplasm. Recommend follow-up neck CT with IV contrast.
--- NOTE | 2023-10-13 07:15 | XR_ITS ---
WS: [id number] Exam: XR hip RT 2-3V wo/w pel* [id number] Date/Time of Exam: 10/13/2023 7:15 AM Reason For Exam: M25.551 - Pain in right hip Comparison 06/23/2022. No fracture or dislocation. End-stage osteoarthritis with [id number] articulation. Subcortical cyst formation in the femoral head and acetabulum. Normal soft tissues. Hardware noted in the upper sacru m and RIGHT SI joint. XR/XR hip RT 2-3V wo/w pel* [id number] IMPRESSION: 1. End-stage osteoarthritis of the RIGHT hip with [id number] articulation. No fracture.
== END 2023-10-13 06:55 | disposition home or self-care (01) ==
LOC: RAD 06:54
PROVIDERS: PCP Nurse Practitioner Family; Visit Provider Nurse Practitioner Family
DX: M16.11 Unilateral primary osteoarthritis, right hip (principal); G31.9 Degenerative disease of nervous system, unspecified; J39.2 Other diseases of pharynx; S09.90XA Unspecified injury of head, initial encounter; X58.XXXA Exposure to other specified factors, initial encounter
CPT/HCPCS: 70450; 73502

== ENCOUNTER → 2023-10-14 15:19 | Outpatient (BNVA) | payer MEDICARE, MEDICAID, SELFPAY | PROVIDERS: PCP Nurse Practitioner Family; Visit Provider Nurse Practitioner Family | DX: J39.2 Other diseases of pharynx (principal) | CPT/HCPCS: 85610 ==

== ENCOUNTER 2023-10-16 22:00 | Observation (INO) | payer MEDICARE, MEDICAID, SELFPAY ==
[2023-10-16 22:06] VITALS: BP 137/85; PULSE 87; RESP 17; TEMP 36.7; O2SAT 97; BMI 18.7
[2023-10-16 22:35] LABS: Basophils # 0.1 10^3/uL (0.0-0.1); Basophils % 0.3 %; Hematocrit 50.6 % (36-47); Lymphocytes # 0.9 10^3/uL (0.8-4.8); Lymphocytes % 2.9 %; Mean Corpuscular HGB Conc 32.6 g/dL (30-55); Mean Corpuscular Hemoglobin 29.5 pg (27-33); Mean Corpuscular Volume 90.5 fl (85-98); Mean Platelet Volume 9.4 fL (7.4-10.4); Monocytes # 1.9 10^3/uL (0.2-0.9); Neutrophils # 27.72 10^3/uL (1.8-7.7); Neutrophils % 90.1 %; Nucleated Red Blood Cells % 0 %; Platelet Count 398 10^3/cmm (157-399); Red Blood Count 5.59 10^6/uL (3.85-5.65); Red Cell Distribution Width 18.9 % (12.1-15.1)
--- NOTE | 2023-10-16 22:37 | CTR_ITS ---
PROCEDURE INFORMATION: Exam: CT Abdomen And Pelvis With Contrast Exam date and time: 10/16/2023 11:15 PM Age: 68 years old Clinical indication: Abdominal pain; Localized; Left lower quadrant (llq); Prior surgery; Surgery date: 6+ months; Surgery type: Heart valve replacement. Gb. Hysterectomy. Bladder. Thoracolumbar fusion. Patient HX: C/O llq pain with constipation x 5 days. TECHNIQUE: Imaging protocol: Computed tomography of the abdomen and pelvis with contrast. Radiation optimization: All CT scans at this facility use at least one of these dose optimization techniques: automated exposure control; mA and/or kV adjustment per patient size (includes targeted exams where dose is matched to clinical indication); or iterative reconstruction. Contrast material: OMNI 350; Contrast volume: 80 ml; Contrast route: INTRAVENOUS (IV); COMPARISON: CT abdomen pelvis wo/w [id number] 10/20/2022 4:40 PM RADIATION DOSE METRICS: Total DLP (mGy-cm): 406.89 FINDINGS: Lungs: Emphysematous changes. Liver: Normal. No mass. Gallbladder and bile ducts: Cholecystectomy. Pancreas: Normal. No ductal dilation. Spleen: Normal. No splenomegaly. Adrenal glands: Normal. No mass. Kidneys and ureters: Bilateral renal cysts, negative for follow-up advised. Right kidney upper pole 15 mm cystic lesion again seen with a thin internal septation consistent with a Bosniak 2 F lesion as previously noted. Stomach and bowel: Prominent fluid in the stomach and small bowel with gastric wall thickening suggestive of a gastroenteritis. Constipation. Appendix: No evidence of appendicitis. Intraperitoneal space: Unremarkable. No free air. No significant fluid collection. Vasculature: Unremarkable. No abdominal aortic aneurysm. Lymph nodes: Unremarkable. No enlarged lymph nodes. Urinary bladder: Unremarkable as visualized. Reproductive: Unremarkable as visualized. Bones/joints: Surgical hardware in the spine. Severe osteoarthritis of the hips bilaterally. Soft tissues: Unremarkable. CT/CT abdomen pelvis w con* [id number] IMPRESSION: 1. Prominent fluid in the stomach and small bowel with gastric wall thickening suggestive of a gastroenteritis. 2. Constipation. 3. Surgical hardware in the spine with chronic appearing fluid in the. 4. Bilateral renal cysts, negative for follow-up advised. 5. Emphysematous changes. 6. Cholecystectomy. 7. Right kidney upper pole 15 mm cystic lesion again seen with a thin internal septation consistent with a Bosniak 2 F lesion as previously noted. Bosniak IIF cystic renal mass. The large majority of Bosniak IIF masses are benign. When malignant, nearly all are indolent. Generally, Bosniak IIF masses are followed by imaging at 6 months and 12 months, then annually for a total of 5 years to assess for morphologic change. (Reference: Ramón). 8. Severe osteoarthritis of the hips bilaterally. COMMENTS: Consistent with the [employer]'s Incidental Findings Committee white paper (J Am Yrn Radiol 2018): Any incidental renal lesion less than 1 cm or classified as too small to characterize, or any incidental cystic renal lesion characterized as simple-appearing, is likely benign. No follow-up imaging is recommended for these lesions per consensus recommendations based on imaging criteria. REFERENCES: Ramón BARAHONA, et al. Bosniak Classification of Cystic Renal Masses, Version 2019: An Update Proposal and Needs Assessment. Radiology. 2019;292(2):475-488.
[2023-10-16 22:49] LABS: Slide Review Slide Review Perform
[2023-10-16 22:52] LABS: Alanine Aminotransferase 15 U/L (0-33); Albumin Level 3.7 g/dL (3.5-5.2); Alkaline Phosphatase 195 U/L (35-105); Anion Gap 21.8 (5-19); Aspartate Amino Transferase 21 U/L (0-32); Blood Urea Nitrogen 35 mg/dL (8-23); C Reactive Protein 33.6 mg/L (0.0-4.9); Calcium 9.4 mg/dL (8.5-10.5); Carbon Dioxide 22 mmol/L (22-29); Chloride 99 mmol/L (98-107); Creatinine Clr Calc Pharmacy 37.8503; Globulin 4.4 g/dL (1.3-4.6); Glomerular Filtration Rate 37.6 mL/min (90-130); Glucose 188 mg/dL (65-115); Lipase 56 U/L (13-60); Osmolality Calculated 299 mOsm/kg (285-295); Potassium 4.8 mmol/L (3.5-5.1); Sodium 138 mmol/L (136-145); Total Bilirubin 0.6 mg/dL (0.15-1.2); Total Protein 8.1 g/dL (6.6-8.7)
--- NOTE | 2023-10-16 22:52 | ED_ITS ---
HPI - Abdominal Pain 2 General: Chief Complaint: Abdominal Pain Stated Complaint: N/V, Cant poop, Dehydration Time Seen by Provider: 10/16/23 22:20 History of Present Illness: 68-year-old female with a history of mul tiple abdominal surgeries. She presents with abdominal pain, distention, no bowel movement for 5 days, and vomiting today. No fever. Associated Symptoms: Reports constipation, nausea and vomiting; Denies chills and fever(s) Review of Systems 2 Const: Denies: fever(s) or chills Card: Denies: chest pain Resp: Denies: dyspnea GI: Reports: abdominal pain, nausea, vomiting and constipation : Denies: flank pain PFSH ED 2 PFSH: Medical History Hypertension Low back pain GERD (gastroesophageal reflux disease) Hx of cardiac murmur Back pain with history of spinal surgery History of stomach ulcers Anxiety Surgical History History of esophagogastroduodenoscopy (EGD) 3-4 yrs ago Hx of colonoscopy with polypectomy 3-4 yrs ago Hx of bladder repair surgery Hx of cholecystectomy Hx of hysterectomy History of tonsillectomy Previous back surgery Family History Father CAD (coronary artery disease) Mother No problems noted. Social History Smoking and tobacco/nicotine status: current every day tobacco/nicotine user Alcohol intake: never Substance/Drug Use: never Physical Exam 2 Const: COMMON NORMALS: no acute distress GENERAL APPEARANCE: cooperative; not ill appearing and not frail appearing HENMT: COMMON NORMALS: normocephalic, atraumatic and Normal external nose present HEAD & SCALP: normocephalic and atraumatic FACE & SINUS: normal facial exam and face symmetric NOSE: Normal external nose present Eye: COMMON NORMALS: Equal, round and reactive pupils present and EOMs intact bilaterally PUPIL: Yes Equal, round and reactive pupils present Neck/C-Spine: GENERAL: Yes trachea midline Chest: CHEST: Yes Symmetrical chest wall rise Resp: COMMON NORMALS: normal respiratory effort, No retractions, No use of accessory muscles and clear to auscultation bilaterally AUSCULTATION: clear to auscultation bilaterally Cardio: COMMON NORMALS: regular rate and regular rhythm RATE: regular rate RHYTHM: regular rhythm GI: COMMON NORMALS: Normal to inspection, nondistended, normoactive bowel sounds present Extremity: COMMON NORMALS: no pedal edema Neuro: COLEEN COMA SCALE: document GCS findings Coleen coma scale eye opening: Spontaneous [place] coma scale verbal response: Orientated Coleen coma scale motor response: Obey commands Coleen coma scale total score: 15 S ENSORY EXAM: Yes extremities (intact) Psych: COMMON NORMALS: speech normal SPEECH: Yes normal speech Skin: COMMON NORMALS: no rashes or lesions noted GENERAL SKIN EXAM: no rashes or lesions noted Course 2 Vital Signs: Vital signs: Vital Signs Temperature 98.1 F 10/17/23 02:54 Pulse Rate 83 10/17/23 02:54 Respiratory Rate 16 10/17/23 02:54 Blood Pressure 159/69 10/17/23 02:54 Pulse Oximetry 92 10/17/23 02:54 Oxygen Delivery Me thod Room Air, Nasal C annula 10/17/23 02:53 MDM - Abdominal Pain Medical Decision Making Patient is afebrile. White blood cell count of 31. However, CRP is only in the 30s. Urinalysis is equivocal. CT shows prominent fluid in the stomach and small bowel with gastric wall thickening suggestive of gastroenteritis. Constipation is present with quite a bit of gas in the large bowel. Chronic renal cyst changes are seen, without significant change. No consolidation in the chest. She has been given a fluid bolus, given her creatinine rise to 1.4. There is no obstruction on CT. She will be covered with antibiotics given the leukocytosis. Continue fluids, continue attempts to relieve constipation, as milk of molasses enema had minimal results here in the ER. Spoke with the hospitalist who will see the patient. Lab Data 10/16/23 22:30 10/16/23 22:30 Labs/Radiology: Radiology Impressions Abdomen/Pelvis CT 10/16/23 22:37 IMPRESSION: 1. Prominent fluid in the stomach and small bowel with gastric wall thickening suggestive of a gastroenteritis. 2. Constipation. 3. Surgical hardware in the spine with chronic appearing fluid in the. 4. Bilateral renal cysts, negative for follow-up advised. 5. Emphysematous changes. 6. Cholecystectomy. 7. Right kidney upper pole 15 mm cystic lesion again seen with a thin internal septation consistent with a Bosniak 2 F lesion as previously noted. Bosniak IIF cystic renal mass. The large majority of Bosniak IIF masses are benign. When malignant, nearly all are indolent. Generally, Bosniak IIF masses are followed by imaging at 6 months and 12 months, then annually for a total of 5 years to assess for morphologic change. (Reference: Ramón). 8. Severe osteoarthritis of the hips bilaterally. COMMENTS: Consistent with the [employer]'s Incidental Findings Committee white paper (J Am Yrn Radiol 2018): Any incidental renal lesion less than 1 cm or classified as too small to characterize, or any incidental cystic renal lesion characterized as simple-appearing, is likely benign. No follow-up imaging is recommended for these lesions per consensus recommendations based on imaging criteria. REFERENCES: Ramón BARAHONA, et al. Bosniak Classification of Cystic Renal Masses, Version 2019: An Update Proposal and Needs Assessment. Radiology. 2019;292(2):475-488. Chest X-Ray 10/17/23 02:09 IMPRESSION: No consolidation. Laboratory Results WBC 30.79 10^3/uL (3.29-11.43) H* 10/16/23 22:30 RBC 5.59 10^6/uL (3.85-5.65) 10/16/23 22:30 Hgb 16.50 g/dL (11.27-16.99) 10/16/23 22:30 Hct 50.6 % (36-47) H 10/16/23 22:30 MCV 90.5 fl (85-98) 10/16/23 22:30 MCH 29.5 pg (27-33) 10/16/23 22:30 MCHC 32.6 g/dL (30-55) 10/16/23 22:30 RDW 18.9 % (12.1-15.1) H 10/16/23 22:30 Plt Count 398 10^3/cmm (157-399) 10/16/23 22:30 MPV 9.4 fL (7.4-10.4) 10/16/23 22:30 Neut % (Auto) 90.1 % 10/16/23 22:30 Lymph % (Auto) 2.9 % 10/16/23 22:30 [place] % (Auto) 6.0 % 10/16/23 22:30 Eos % (Auto) 0.0 % 10/16/23 22:30 Baso % (Auto) 0.3 % 10/16/23 22:30 Neut # (Auto) 27.72 10^3/uL (1.8-7.7) H 10/16/23 22:30 Lymph # (Auto) 0.9 10^3/uL (0.8-4.8) 10/16/23 22:30 [place] # (Auto) 1.9 10^3/uL (0.2-0.9) H 10/16/23 22:30 Eos # (Auto) 0.0 10^3/uL (0.0-0.8) 10/16/23 22:30 Baso # (Auto) 0.1 10^3/uL (0.0-0.1) 10/16/23 22:30 Nucleated RBC % (auto) 0 % 10/16/23 22:30 Nucleated RBCs # 0.0 /100WBC 10/16/23 22:30 Sodium 138 mmol/L (136-145) 10/16/23 22:30 Potassium 4.8 mmol/L (3.5-5.1) 10/16/23 22:30 Chloride 99 mmol/L (98-107) 10/16/23 22:30 Carbon Dioxide 22 mmol/L (22-29) 10/16/23 22:30 Anion Gap 21.8 (5-19) H 10/16/23 22:30 BUN 35 mg/dL (8-23) H 10/16/23 22:30 Creatinine 1.4 mg/dL (0.5-0.9) H 10/16/23 22:30 GFR Calculation 37.6 mL/min (90-130) L 10/16/23 22:30 Glucose 188 mg/dL (65-115) H 10/16/23 22:30 Calculated Osmolality 299 mOsm/kg (285-295) H 10/16/23 22:30 Lactic Acid 2.8 mmol/L (0.5-2.2) H 10/16/23 22:30 Lactic Acid (Sepsis) 3.2 mmol/L (0.5-2.2) H 10/17/23 01:18 Calcium 9.4 mg/dL (8.5-10.5) 10/16/23 22:30 Total Bilirubin 0.6 mg/dL (0.15-1.2) 10/16/23 22:30 AST 21 U/L (0-32) 10/16/23 22:30 ALT 15 U/L (0-33) 10/16/23 22:30 Alkaline Phosphatase 195 U/L (35-105) H 10/16/23 22:30 C-Reactive Protein 33.6 mg/L (0.0-4.9) H 10/16/23 22:30 Total Protein 8.1 g/dL (6.6-8.7) 10/16/23 22:30 Albumin 3.7 g/dL (3.5-5.2) 10/16/23 22:30 Globulin 4.4 g/dL (1.3-4.6) 10/16/23 22:30 Lipase 56 U/L (13-60) 10/16/23 22:30 Urine Color Dark yellow (Yellow) 10/16/23 23:37 Urine Appearance Clear (CLEAR) 10/16/23 23:37 Urine pH 5 (5-7) 10/16/23 23:37 Ur Specific Yoder 1.015 (1.005-1.030) 10/16/23 23:37 Urine Protein 3+ (Negative) H 10/16/23 23:37 Urine Glucose (UA) Norm (Normal) 10/16/23 23:37 Urine Ketones 1+ (Negative) H 10/16/23 23:37 Urine Blood 2+ (Negative) H 10/16/23 23:37 Urine Nitrate Positive (Negative) H 10/16/23 23:37 Urine Bilirubin 2+ (Negative) H 10/16/23 23:37 Urine Urobilinogen 8 mg/dL (Negative) H 10/16/23 23:37 Ur Leukocyte Esterase 1+ (Negative) H 10/16/23 23:37 Urine RBC 5-10 /hpf (0-2) H 10/16/23 23:37 Urine WBC 5-10 /hpf (0-5) H 10/16/23 23:37 Ur Squamous Epith Cells 0-4 /hpf (0-5) H 10/16/23 23:37 Amorphous Sediment Trace /hpf 10/16/23 23:37 Urine Bacteria 2+ /hpf (NONE) H 10/16/23 23:37 Hyaline Casts 5-10 /lpf H 10/16/23 23:37 Coarse Granular Casts 0-4 /lpf H 10/16/23 23:37 Urine Mucus Trace /hpf 10/16/23 23:37 All radiology interpretation(s) finalized by discharge Discharge Plan Discharge Patient Disposition: Admitted As Inpatient Admit Provider: Benton Gonsalez Clinical Impression: Nausea and vomiting, Leukocytosis, LORI (acute kidney injury) Condition: Fair Coding Level of Care Code ED Activity Therapy Teacher for Renny Pretty
[2023-10-16 22:53] LABS: Lactic Sepsis W/Reflex 2.8 mmol/L (0.5-2.2)
[2023-10-16 22:54] LABS: White Blood Count 30.79 10^3/uL (3.29-11.43)
[2023-10-16] MEDS: iohexol 350 mg/mL 500 mL Btl (per mL) IV (23:01)
[2023-10-16] MEDS: morphine 4 mg/mL SDV 1 mL IVP (23:02)
[2023-10-16] MEDS: sodium chloride 0.9% 1,000 ML 999 ML IV (23:02)
[2023-10-16] MEDS: ondansetron 2 mg/ML SDV 2 mL 4 MG IVP (23:02)
[2023-10-16 23:52] LABS: Add Urine Microscopic? YES; Bilirubin Urine 2+ (Negative); Blood Urine 2+ (Negative); Glucose Urine UA Norm (Normal); Ketones Urine 1+ (Negative); Leukocyte Esterase Urine 1+ (Negative); Nitrate Urine Positive (Negative); Protein Urine 3+ (Negative); Specific Gravity, Urine 1.015 (1.005-1.030); Squamous Epithelial Cell Urine 0-4 /hpf (0-5); Urine Appearance Clear (CLEAR); Urine Color Dark Yellow (Yellow); Urobilinogen Urine 8 mg/dL (Negative); pH Urine 5 (5-7)
[2023-10-16 23:53] LABS: Add Urine Culture? Yes; Amorphous Sediment Urine TRACE /hpf; Bacteria Urine 2+ /hpf; Coarse Granular Casts Urine 0-4 /lpf; Mucus Urine TRACE /hpf
[2023-10-17] VITALS (9 sets, daily range): BP systolic 142–195; BP diastolic 68–77; PULSE 46–83; RESP 16–18; TEMP 36.6–37; O2SAT 90–96; BMI 18.7
[2023-10-17 00:22] LABS: Reflex Lactate Order REFLEX LACTIC ORDERD
[2023-10-17 01:42] LABS: Lactic Acid level (Lactate) 3.2 mmol/L (0.5-2.2)
--- NOTE | 2023-10-17 02:09 | XRR_ITS ---
PROCEDURE INFORMATION: Exam: XR Chest Exam date and time: 10/17/2023 2:11 AM Age: 68 years old Clinical indication: Abnormal findings; Abnormal diagnostic tests; Abnormal ekg; Shortness of breath; Prior surgery; Surgery date: 6+ months; Surgery type: Valve replacement. Gb. Thoracolumbar fusion; Patient HX: Mild hypoxia with wbc of 30k; Additional info: Leukocytosis TECHNIQUE: Imaging protocol: Radiologic exam of the chest. Views: 1 view. COMPARISON: CT angio chest [place] prot [id number] 08/05/2022 11:14 PM FINDINGS: Lungs: No consolidation. No pulmonary edema. Pleural spaces: No large pleural effusion. No pneumothorax. Heart/Mediastinum: No cardiomegaly. Bones/joints: Thoracolumbar spinal fusion hardware. Sternal wires. XR/XR chest 1V portable [id number] IMPRESSION: No consolidation.
[2023-10-17] MEDS: morphine 4 mg/mL SDV 1 mL IVP (02:31)
[2023-10-17] MEDS: ondansetron 2 mg/ML SDV 2 mL 4 MG IVP (02:32)
[2023-10-17] MEDS: piperacillin-tazobactam 4.5 GM in sodium chloride 0.9% (plus) 50 ML IV (02:32)
--- NOTE | 2023-10-17 03:25 | P.HP_ITS ---
Providers/Chief Complaint 2 Admitting Physician: Benton Gonsalez Primary Care Provider: HENOK Caicedo Chief Complaint: N/V, Cant poop, Dehydration History of Present Illness 68-year-old lady with aortic valve replacement, on warfarin anticoagulation, but states that she will be stopping warfarin next month and switching to aspirin alone, HTN, GERD, lower back pain, history of spinal surgery, over the last 3 days has been having progressively worsening nausea and vomiting, distention, abdominal pain in the lower abdomen unable to keep down food or drink. Review of Systems 2 Const: Denies: fever(s), chills, body aches or malaise ENMT: Denies: throat pain Card: Denies: chest pain, edema, pre-syncope or dyspnea on exertion Resp: Denies: dyspnea, productive cough, change in phlegm color or hemoptysis GI: Reports: abdominal pain, nausea, vomiting and constipation; Denies: diarrhea, hematochezia or melena : Denies: flank pain, urinary frequency or hematuria Musc: Denies: back pain, joint swelling or joint redness Skin/Breast: Denies: rash or new lesions Neuro: Denies: headache(s), dizziness or confusion Medications/Allergies Home Medications Medication Instructions Recorded Confirmed Last Taken Type Bone Growth Stimulator [id number] #1 ea 07/13/22 10/14/23 Unknown Rx biotin 1 mg capsule 1 mg PO DAILY 08/01/22 10/17/23 10/16/23 History cholecalciferol (vitamin D3) 50 50 mcg PO DAILY 08/01/22 10/17/23 10/16/23 History mcg (2,000 unit) tablet (Vitamin D3) wheelchair #1 ea 08/11/22 10/14/23 Unknown Rx TLSO Brace #1 ea 08/18/22 10/14/23 Unknown Rx multivitamin 1 tab PO DAILY 04/13/23 10/17/23 10/16/23 History fluticasone furoate 27.5 2 spray intranasal DAILY #5.9 mL 06/18/23 10/17/23 10/16/23 Rx mcg/actuation nasal spray,suspension (Flonase Sensimist) hydrocodone 5 mg-acetaminophen 325 1 tab PO Q4H PRN pain 5 days #30 06/25/23 10/17/23 1 Week Ago Rx mg tablet tabs ~10/10/23 budesonide 3 mg See Rx Instructions .Route 08/18/23 10/17/23 10/16/23 Rx capsule,delayed,extended release .COMPLEX #90 caps citalopram 20 mg tablet See Rx Instructions .Route 08/19/23 10/17/23 10/16/23 Rx .COMPLEX #90 tabs diltiazem HCl 300 mg See Rx Instructions .Route 08/19/23 10/17/23 10/16/23 Rx capsule,extended release 24 hr .COMPLEX #90 caps (Cartia XT) potassium chloride 10 mEq See Rx Instructions .Route 09/08/23 10/17/23 10/15/23 Rx tablet,extended release(part/cryst) .COMPLEX #90 tabs rabeprazole 20 mg tablet,delayed See Rx Instructions .Route 10/01/23 10/17/23 10/16/23 Rx release .COMPLEX #90 tabs atorvastatin 10/17/23 10/15/23 History metoprolol tartrate 25 mg tablet 25 mg PO 1XD 10/17/23 10/17/23 10/16/23 History warfarin 4 mg tablet 4 mg PO DIRECTED 10/17/23 10/17/23 10/14/23 History Allergies Allergy/AdvReac Type Severity Reaction Status Date / Time adhesive tape Allergy ADR-Itching Verified 10/17/23 03:45 nitrofurantoin AdvReac sob Verified 10/16/23 22:09 [From Macrobid] PFSH Acute 2 PFSH: Medical History Hypertension Low back pain GERD (gastroesophageal reflux disease) Hx of cardiac murmur Back pain with history of spinal surgery History of stomach ulcers Anxiety Surgical History History of esophagogastroduodenoscopy (EGD) 3-4 yrs ago Hx of colonoscopy with polypectomy 3-4 yrs ago Hx of bladder repair surgery Hx of cholecystectomy Hx of hysterectomy History of tonsillectomy Previous back surgery Family History Father CAD (coronary artery disease) Mother No problems noted. Social History Smoking and tobacco/nicotine status: current every day tobacco/nicotine user Alcohol intake: never Substance/Drug Use: never Vitals/I&O/Wt Last Vital Signs Temp 98.1 F 10/17/23 02:54 Pulse 83 10/17/23 02:54 Resp 16 10/17/23 02:54 BP 159/69 10/17/23 02:54 Pulse Ox 92 10/17/23 02:54 O2 Del Method Room Air, Nasal Cannula 10/17/23 02:53 10/16/23 10/16/23 10/17/23 14:59 22:59 06:59 Intake Total 1723.76 / 1723.76 Balance 1723.76 / 1723.76 Weight last 48 hrs Weight 55.792 kg Physical Exam 2 Const: COMMON NORMALS: patient oriented x3 and alert GENERAL APPEARANCE: c ooperative ORIENTATION/CONSCIOUSNESS: Yes awake HENMT: COMMON NORMALS: oropharynx normal Neck/C-Spine: COMMON NORMALS: no JVD Resp: COMMON NORMALS: normal respiratory effort and clear to auscultation bilaterally AUSCULTATION: clear to auscultation bilaterally Cardio: COMMON NORMALS: no JVD, regular rhythm, S1 normal heart sound present, S2 normal heart sound present and No murmurs present (Cardio) RHYTHM: regular rhythm HEART SOUNDS: S1 normal heart sound present and S2 normal heart sound present GI: COMMON NORMALS: Normal to inspection, nondistended, normoactive bowel sounds present, Soft to palpation and non-tender PALPATION: Yes Soft to palpation Extremity: COMMON NORMALS: no joint enlargement and no pedal edema Neuro: COMMON NORMALS: patient oriented x3 and moves all extremities S ENSORIUM/ORIENTATION: Yes alert Skin: COMMON NORMALS: no rashes or lesions noted GENERAL SKIN EXAM: no rashes or lesions noted Data 10/16/23 22:30 10/16/23 22:30 Micro: Microbiology 10/17/23 02:29 Blood Culture - Preliminary Blood SPECIMEN COLLECTED 10/17/23 02:29 Blood Culture - Preliminary Blood SPECIMEN COLLECTED A&P Assessment and plan (1) Nausea and vomiting: Persistent worsening nausea and vomiting, unable to tolerate oral intake over the last 3 days with abdominal distention, pain, constipation, in ER with severe leukocytosis 30.79, with dehydration, lactic acidosis 2.8, LORI, creatinine 1.4, possible UTI. CT abdomen pelvis with gastroenteritis, constipation, colonic gas distention. No sign of perforation. She denies. Denies history of C. difficile. Has had a colonoscopy but is possibly close to a decade ago. Reviewed vitals, CBC, CMP, CRP, lipase, UA, CT abdomen pelvis, chest x-ray. Chest x-ray my interpretation without infiltrate, pending official read. Reviewed ER note, discussed with ER provider. With gastroenteritis will assess respiratory viral panel. Discussed with her n.p.o., IV fluids, antiemetics as needed. Monitor for risk of fluid overload with IV fluid. Tylenol as needed. Additionally with obstipation, MiraLAX, Dulcolax suppository. In case of recurrent vomiting discussed consideration of NG tube but she states likely will not allow for it. Encouraged ambulation. She occasionally takes hydrocodone but states has not taken it in the last week. Hold opioids. Hold diltiazem. Possible medication toxic effect with constipation with calcium channel iliana. If lack of improvement with conservative measurement, consider possibility of José Miguel syndrome, consider sigmoidoscopy, neostigmine. (2) Leukocytosis: Severe leukocytosis, 30.79, reviewed neutrophils, lymphocytes, monocytes, noted elevation neutrophils predominantly 27.7 or 90%, not entirely clear cause, but may be multifactorial including both poor oral intake, dehydration, stress, vomiting, as well as UTI, and gastroenteritis. No diarrhea, denies history of C. difficile. Monitor for any changes, she knows to let us know in case of any change in symptoms. Additionally with vomiting, chest x-ray appears clear, but she is having saturation in the low 90s, down to 90%. Possibility of aspiration with early pneumonitis, although she does deny respiratory symptoms at this time. Monitor symptoms, reassess blood counts. For now empiric antibiotic coverage with Zosyn Follow-up blood culture. (3) Urinary tract infection: Somewhat equivocal with UA, discussed with her, left does have positive nitrate, 5-12 WBC, urine bacteria 2+. Possible UTI. Continue Zosyn as above. Follow-up urine culture. (4) Renal cyst: Discussed finding with her. Will need follow-up after discharge. Right kidney upper pole 15 mm cystic lesion again seen with a thin internal septation consistent with a Bosniak 2 F lesion as previously noted. Bosniak IIF cystic renal mass. The large majority of Bosniak IIF masses are benign. When malignant, nearly all are indolent. Generally, Bosniak IIF masses are followed by imaging at 6 months and 12 months, then annually for a total of 5 years to assess for morphologic change. Plan Aortic valve replacement, on warfarin anticoagulation, but states that she will be stopping warfarin next month and switching to aspirin alone, Chronic anticoagulation: On warfarin previously 4 mg daily, last INR on was 1.8 so dose was increased to 6 mg on and Sundays. HTN, Monitor blood pressure. Continue metoprolol. Hold diltiazem for now with obstipation. GERD, Lower back pain, History of spinal surgery Attestations 2 Medical Necessity Statement*: Place in observation for additional assessment and management of persistent/worsening nausea and vomiting, gastroenteritis, obstipation, with severe leukocytosis, possible early aspiration pneumonitis, UTI, in a lady with additional medical problems as above. and High MDM includes amount and/or complexity of data reviewed/ordered [ previous or external records, resulted lab(s)/test(s), ordered lab(s)/test(s), independent test interpretation and other healthcare professional discussion] and described risk of complication, morbidity or mortality of management as documented Diagnoses Nausea and vomiting R11.2 Leukocytosis D72.829 Urinary tract infection N39.0 Renal cyst N28.1
[2023-10-17] MEDS: lactated ringers 1,000 ML 75 ML IV ×2 (04:42→17:15)
[2023-10-17] MEDS: pantoprazole DR 40 mg Tablet PO (06:07)
[2023-10-17 06:32] LABS: Adenovirus Not Detected (NOT DETECT); Chlamydia Pneumoniae Not Detected (NOT DETECT); Coronavirus 229E,HKU1,NL63,OC4 Not Detected (NOT DETECT); Human Metapneumovirus Not Detected (NOT DETECT); Human Rhinovirus/Enterovirus Not Detected (NOT DETECT); Influenza A Not Detected (NOT DETECT); Influenza A H1 Not Detected (NOT DETECT); Influenza A H1-2009 Not Detected (NOT DETECT); Influenza A H3 Not Detected (NOT DETECT); Influenza B Not Detected (NOT DETECT); Mycoplasma Pneumoniae Not Detected (NOT DETECT); Parainfluenza Virus Type 1 Not Detected (NOT DETECT); Parainfluenza Virus Type 2 Not Detected (NOT DETECT); Parainfluenza Virus Type 3 Not Detected (NOT DETECT); Parainfluenza Virus Type 4 Not Detected (NOT DETECT); Respiratory Syncytial Virus A Not Detected (NOT DETECT); Respiratory Syncytial Virus B Not Detected (NOT DETECT); SARS-COV-2 Not Detected (NOT DETECT)
[2023-10-17] MEDS: bisacodyl 10 mg Supp PR (06:36)
[2023-10-17] MEDS: metoprolol tartrate 25 mg Tablet PO (08:47)
[2023-10-17] MEDS: polyethylene glycol 3350 Pkt 17 gm PO ×2 (08:47→17:16)
[2023-10-17] MEDS: citalopram 20 mg Tablet PO (08:47)
[2023-10-17] MEDS: piperacillin-tazobactam 3.375 GM in sodium chloride 0.9% (plus) 50 ML IV ×2 (10:35→17:15)
[2023-10-17] MEDS: acetaminophen 325 mg Tablet 650 MG PO (13:55)
--- NOTE | 2023-10-17 14:37 | XRR_ITS ---
PROCEDURE INFORMATION: Exam: XR Abdomen Exam date and time: 10/17/2023 3:42 PM Age: 68 years old Clinical indication: Patient HX: Abdominal pain/distention TECHNIQUE: Imaging protocol: Radiologic exam of the abdomen. Views: Frontal supine view of the abdomen. 1 View. COMPARISON: CT abdomen pelvis w con* [id number] 10/16/2023 11:15 PM FINDINGS: Heart/Mediastinum: Stable mild enlargement of the visualized cardiac silhouette. Lungs: Visualized lungs are clear. Pleural spaces: No pleural effusion. Gastrointestinal tract: Increased fecal content in the colon. Stable dilatation of the cecum and ascending colon measuring up to 9.9 cm. No small bowel dilatation. Intraperitoneal space: No free intraperitoneal air. Organs: Stable findings consistent with a previous cholecystectomy with surgical clips in the right upper quadrant. Contrast in the bladder from a prior CT scan. Bones/joints: Stable changes consistent with previous fusion from T10 through S1 and continuing through the right and left sacroiliac joints with L3 and L4 laminectomies. XR/XR KUB [id number] IMPRESSION: 1. Nonobstructed bowel gas pattern. 2. Increased fecal content in the colon. 3. Stable dilatation of the cecum and ascending colon measuring up to 9.9 cm. 4. Incidental/nonacute findings are listed in the report.
[2023-10-17] MEDS: morphine 4 mg/mL SDV 1 mL 2 MG IVP (15:07)
--- NOTE | 2023-10-17 15:28 | PM.MISC ---
Miscellaneous Note Note: Patient was seen this morning Received morphine and that improved her pain She is complaining of abdominal pain lower hypogastric region She is not vomiting today I did tell her that in case of any episode of vomiting all pressure was stable to put an NG tube Will request another KUB Continue Zosyn for UTI and gastroenteritis Patient does not have any cardiac history other than aortic valve replacement I will keep her n.p.o. tonight
[2023-10-17 16:45] LABS: Glucose Point of Care 108 mg/dL (70-110)
[2023-10-17 20:19] LABS: Glucose Point of Care 85 mg/dL (70-110)
[2023-10-17] MEDS: amlodipine 5 mg Tablet PO (21:35)
[2023-10-18] VITALS: BP 182/70; PULSE 74; RESP 18; TEMP 37.1; O2SAT 95
[2023-10-18] MEDS: piperacillin-tazobactam 3.375 GM in sodium chloride 0.9% (plus) 50 ML IV ×3 (02:19→18:09)
[2023-10-18 04:00] VITALS: BP 168/65; PULSE 71; RESP 17; TEMP 36.8; O2SAT 91
[2023-10-18 05:33] LABS: Basophils # 0.1 10^3/uL (0.0-0.1); Basophils % 0.5 %; Eosinophils % 0.2 %; Hematocrit 33.6 % (36-47); Lymphocytes # 1.9 10^3/uL (0.8-4.8); Lymphocytes % 12.3 %; Mean Corpuscular HGB Conc 32.4 g/dL (30-55); Mean Corpuscular Hemoglobin 29.4 pg (27-33); Mean Corpuscular Volume 90.6 fl (85-98); Mean Platelet Volume 10.2 fL (7.4-10.4); Monocytes # 0.8 10^3/uL (0.2-0.9); Neutrophils # 12.36 10^3/uL (1.8-7.7); Neutrophils % 81.5 %; Nucleated Red Blood Cells % 0 %; Platelet Count 243 10^3/cmm (157-399); Red Blood Count 3.71 10^6/uL (3.85-5.65); Red Cell Distribution Width 18.3 % (12.1-15.1); White Blood Count 15.16 10^3/uL (3.29-11.43)
[2023-10-18 05:42] LABS: INR 3.04 (0.8-1.2)
[2023-10-18 05:48] LABS: Alanine Aminotransferase 16 U/L (0-33); Albumin Level 2.4 g/dL (3.5-5.2); Alkaline Phosphatase 127 U/L (35-105); Anion Gap 12.6 (5-19); Aspartate Amino Transferase 21 U/L (0-32); Blood Urea Nitrogen 25 mg/dL (8-23); Carbon Dioxide 23 mmol/L (22-29); Chloride 102 mmol/L (98-107); Creatinine Clr Calc Pharmacy 60.3203; Globulin 2.8 g/dL (1.3-4.6); Glomerular Filtration Rate 62.6 mL/min (90-130); Glucose 64 mg/dL (65-115); Magnesium 1.9 mg/dL (1.7-2.3); Osmolality Calculated 280 mOsm/kg (285-295); Phosphorus 2.3 mg/dL (2.5-4.5); Potassium 3.6 mmol/L (3.5-5.1); Sodium 134 mmol/L (136-145); Total Bilirubin 0.4 mg/dL (0.15-1.2); Total Protein 5.2 g/dL (6.6-8.7)
[2023-10-18] MEDS: lactated ringers 1,000 ML 75 ML IV ×2 (06:04→20:59)
[2023-10-18] MEDS: pantoprazole DR 40 mg Tablet PO (06:05)
[2023-10-18 06:35] LABS: Glucose Point of Care 60 mg/dL (70-110)
[2023-10-18 06:54] LABS: Glucose Point of Care 83 mg/dL (70-110)
[2023-10-18 07:46] VITALS: BP 170/64; PULSE 70; RESP 16; TEMP 36.4; O2SAT 95
[2023-10-18] MEDS: metoprolol tartrate 25 mg Tablet PO (08:38)
[2023-10-18] MEDS: citalopram 20 mg Tablet PO (08:38)
[2023-10-18] MEDS: polyethylene glycol 3350 Pkt 17 gm PO ×2 (08:38→18:09)
[2023-10-18] MEDS: bisacodyl 10 mg Supp PR (08:39)
--- NOTE | 2023-10-18 08:46 | PC.NURSE ---
Dr. Sinha in room gave verbal orders to stop NPO diet and start Clear liquid diet. If patient feels sick, pain or discomfort stop eating and drinking.
--- NOTE | 2023-10-18 09:28 | P.PN_ITS ---
Subjective 2 Subjective: Patient had couple bowel movements yesterday Passing flatus Abdominal exam is benign Start clear liquid diet today Cecal dimensions are up to 9 cm Patient smokes half a pack a day, lives with her family at home, Low blood sugar noted Vitals/I&O/Wt Last Vital Signs Temp 97.6 F 10/18/23 07:46 Pulse 70 10/18/23 07:46 Resp 16 10/18/23 07:46 BP 170/64 10/18/23 07:46 Pulse Ox 95 10/18/23 07:46 O2 Del Method Nasal Cannula 10/18/23 07:46 O2 Flow Rate 2 10/18/23 07:46 10/17/23 10/18/23 10/18/23 22:59 06:59 14:59 Intake Total 1041.25 / 1041.25 1011.25 / 2051.50 Balance 1041.25 / 1041.25 1011.25 / 2051.50 Weight last 48 hrs Weight 59.506 kg Weight 58.173 kg Weight 55.792 kg Weight 55.792 kg Physical Exam 2 Narrative: Awake and alert Nonfocal neuroexam GCS 15 S1, S2 Clinically dehydrated Abdomen soft Abdominal exam is benign Bowel sounds sluggish but present Nontender abdomen, no active sign of peritonitis Data 10/18/23 05:06 10/18/23 05:06 Micro: Microbiology 10/17/23 02:29 Blood Culture - Preliminary Blood NEGATIVE TO DATE 10/17/23 02:29 Blood Culture - Preliminary Blood NEGATIVE TO DATE A&P Assessment and plan (1) Anxiety: (2) Hypertension: Qualifiers: Hypertension type: unspecified Qualified Code(s): I10 - Essential (primary) hypertension (3) Atrial fibrillation: (4) GERD (gastroesophageal reflux disease): Qualifiers: Esophagitis presence: without esophagitis Qualified Code(s): K21.9 - Gastro-esophageal reflux disease without esophagitis (5) Ileus: (6) LORI (acute kidney injury): (7) Hypoxia: Plan Ileus José Miguel's syndrome? Replenish electrolytes Start clear liquid diet Patient had couple bowel movements yesterday Passing flatus today Continue IV fluids hydration Start clear liquid diet today Abdominal exam is benign Continue antihypertensive regimen Patient is hypertensive Leukocytosis improving continue Zosyn Coumadin at 2 PM, 4 mg, supratherapeutic INR hold Coumadin for today Attestations 2 Medical Necessity Statement*: Continue medical management Diagnoses Anxiety F41.9 Hypertension, unspecified type I10 Hypertension type: unspecified Atrial fibrillation I48.91 Gastroesophageal reflux disease without esophagitis K21.9 Esophagitis presence: without esophagitis Ileus K56.7 LORI (acute kidney injury) N17.9 Hypoxia R09.02
--- NOTE | 2023-10-18 09:34 | PC.CHAP ---
Pastoral Care Encounter/Spiritual Assessment Type of Contact [] Declined or director visit [] Patient/Family/Request visit [] Outpatient visit [] Follow-up visit [] Physician referral [] Code/Alert [x] Routine visit [] Staff referral [] Actively dying [] Patient sleeping [] Family support [] [] Out of room [] Palliative care [] [x] Receiving care in room [] Pre-surgical visit [] Trauma [] Long length of stay [] ICU visit [] Other: Relational/Emotional Strength [] Patient feels connected with others/family/visitors/staff [] Distress [] Loneliness/isolation [] Abandonment Spirituality of Patient [] Person of Christine [] Attends Yazidi of their Christine [] Believes in Prayer [] Reads Bible or Methodist materials [] There are Spiritual issues to be addressed Forester Aide Interventions [] Prayer [] Active listening [] Non-anxious presence [] Spiritual/emotional support [] Crisis/trauma care [] Spiritual counseling [] Bereavement support [] Provided bereavement packet [] Provided Bible/devotional materials [] Provided toy/stuffed animal, coloring book to patient or family member [] Provided Communion [] Anointing/[place] [] Salvation [] Completed spiritual assessment [] Other: Impact on Illness or Injury [] Angry [] Fearful [] Anxious [] Often cries [] Exhaustion [] Unable to work [] Unable to attend scientology [] Unable to walk/stand [] Unable to read [] Unable to drive [] Unable to eat/drink [] Unable to sleep [] Unable to be with family [] Patient intubated [] Other: Summary Time spent with patient
[2023-10-18] MEDS: potassium chloride ER 20 mEq Tablet 40 MEQ PO (09:54)
[2023-10-18 11:04] LABS: Glucose Point of Care 84 mg/dL (70-110)
[2023-10-18 11:14] VITALS: BP 118/75; PULSE 62; RESP 16; TEMP 36.8; O2SAT 90
[2023-10-18 11:44] LABS: C.Diff PCR (Lab) NEGATIVE (Negative)
[2023-10-18 15:35] VITALS: BP 193/78; PULSE 72; RESP 15; TEMP 36.9; O2SAT 90
[2023-10-18 17:21] LABS: Glucose Point of Care 84 mg/dL (70-110)
[2023-10-18] MEDS: magnesium oxide 400 mg tablet PO (18:09)
[2023-10-18 20:00] VITALS: BP 180/74; PULSE 61; RESP 18; TEMP 36.9; O2SAT 96
[2023-10-18 21:27] LABS: Glucose Point of Care 86 mg/dL (70-110)
[2023-10-18] MEDS: morphine 4 mg/mL SDV 1 mL 2 MG IVP (23:20)
[2023-10-19] VITALS: BP 193/88; PULSE 73; RESP 18; TEMP 37; O2SAT 97
[2023-10-19] MEDS: hyDRALAzine 20 mg/mL INJ 1 mL 10 MG IVP ×2 (00:31→04:21)
[2023-10-19] MEDS: piperacillin-tazobactam 3.375 GM in sodium chloride 0.9% (plus) 50 ML IV ×2 (02:26→10:57)
[2023-10-19 04:00] VITALS: BP 200/83; PULSE 73; RESP 18; TEMP 36.7; O2SAT 92
[2023-10-19 06:02] LABS: Basophils # 0.1 10^3/uL (0.0-0.1); Basophils % 0.5 %; Eosinophils # 0.1 10^3/uL (0.0-0.8); Eosinophils % 0.5 %; Lymphocytes # 2.6 10^3/uL (0.8-4.8); Lymphocytes % 25.7 %; Mean Corpuscular HGB Conc 33.4 g/dL (30-55); Mean Corpuscular Hemoglobin 29.4 pg (27-33); Mean Corpuscular Volume 87.9 fl (85-98); Mean Platelet Volume 9.9 fL (7.4-10.4); Monocytes # 0.5 10^3/uL (0.2-0.9); Monocytes % 5.3 %; Neutrophils # 6.96 10^3/uL (1.8-7.7); Neutrophils % 67.7 %; Nucleated Red Blood Cells % 0 %; Platelet Count 259 10^3/cmm (157-399); Red Blood Count 3.98 10^6/uL (3.85-5.65); Red Cell Distribution Width 17.6 % (12.1-15.1); White Blood Count 10.27 10^3/uL (3.29-11.43)
[2023-10-19] MEDS: pantoprazole DR 40 mg Tablet PO (06:07)
[2023-10-19 06:12] LABS: INR 1.64 (0.8-1.2)
[2023-10-19 06:21] LABS: Alanine Aminotransferase 15 U/L (0-33); Albumin Level 2.6 g/dL (3.5-5.2); Alkaline Phosphatase 129 U/L (35-105); Anion Gap 13.5 (5-19); Aspartate Amino Transferase 23 U/L (0-32); Blood Urea Nitrogen 13 mg/dL (8-23); Calcium 8.5 mg/dL (8.5-10.5); Carbon Dioxide 24 mmol/L (22-29); Chloride 103 mmol/L (98-107); Creatinine Clr Calc Pharmacy 60.9916; Globulin 3.2 g/dL (1.3-4.6); Glomerular Filtration Rate 62.6 mL/min (90-130); Glucose 76 mg/dL (65-115); Osmolality Calculated 283 mOsm/kg (285-295); Potassium 3.5 mmol/L (3.5-5.1); Sodium 137 mmol/L (136-145); Total Bilirubin 0.5 mg/dL (0.15-1.2); Total Protein 5.8 g/dL (6.6-8.7)
[2023-10-19 06:33] LABS: Glucose Point of Care 84 mg/dL (70-110)
[2023-10-19 07:22] VITALS: BP 164/55; PULSE 75; RESP 17; TEMP 36.7; O2SAT 91
[2023-10-19] MEDS: magnesium oxide 400 mg tablet PO (07:42)
[2023-10-19] MEDS: citalopram 20 mg Tablet PO (07:42)
[2023-10-19] MEDS: metoprolol tartrate 25 mg Tablet PO (07:42)
[2023-10-19] MEDS: lactated ringers 1,000 ML 75 ML IV (07:43)
[2023-10-19] MEDS: polyethylene glycol 3350 Pkt 17 gm PO (07:43)
--- NOTE | 2023-10-19 08:51 | XRR_ITS ---
PROCEDURE INFORMATION: Exam: XR Abdomen Exam date and time: 10/19/2023 9:15 AM Age: 68 years old Clinical indication: Abdominal pain; Generalized; Additional info: Cecal dilation TECHNIQUE: Imaging protocol: Radiologic exam of the abdomen. Views: Frontal supine view of the abdomen. 1 View. COMPARISON: CR XR KUB [id number] 06/22/2023 15:42 FINDINGS: Gastrointestinal tract: The colon appears somewhat less dilated on the current study. No suggestion of the small bowel obstruction. Organs: Cholecystectomy. Bones/joints: Extensive thoracolumbar spinal fusion as well as bilateral sacroiliac fusion. Severe chronic degenerative changes to both hips XR/XR KUB portable [id number] IMPRESSION: Persistent but improving gaseous distension of the colon. No evidence of a small bowel obstruction.
--- NOTE | 2023-10-19 09:52 | PC.CHAP ---
Pastoral Care Encounter/Spiritual Assessment Type of Contact [] Declined account resolution expert visit [] Patient/Family/Request visit [] Outpatient visit [] Follow-up visit [] Physician referral [] Code/Alert [x] Routine visit [] Staff referral [] Actively dying [] Patient sleeping [] Family support [] [] Out of room [] Palliative care [] [] Receiving care in room [] Pre-surgical visit [] Trauma [] Long length of stay [] ICU visit [] Other: Relational/Emotional Strength [x] Patient feels connected with others/family/visitors/staff [] Distress [] Loneliness/isolation [] Abandonment Spirituality of Patient [x] Person of Christine [] Attends Religious of their Christine [x] Believes in Prayer [] Reads Bible or Protestant materials [] There are Spiritual issues to be addressed Book Reviewer Interventions [x] Prayer [x] Active listening [] Non-anxious presence [x] Spiritual/emotional support [] Crisis/trauma care [] Spiritual counseling [] Bereavement support [] Provided bereavement packet [] Provided Bible/devotional materials [] Provided toy/stuffed animal, coloring book to patient or family member [] Provided Communion [] Anointing/[place] [] Salvation [x] Completed spiritual assessment [] Other: Impact on Illness or Injury [] Angry [] Fearful [] Anxious [] Often cries [] Exhaustion [] Unable to work [] Unable to attend tenriism [] Unable to walk/stand [] Unable to read [] Unable to drive [] Unable to eat/drink [] Unable to sleep [] Unable to be with family [] Patient intubated [] Other: Summary Time spent with patient 5 min
[2023-10-19 10:51] VITALS: BP 182/77; PULSE 65; RESP 16; TEMP 36.8; O2SAT 94
[2023-10-19 11:04] LABS: Glucose Point of Care 85 mg/dL (70-110)
--- NOTE | 2023-10-19 11:28 | P.DS_ITS ---
Discharge Providers Date of Admission: 10/18/23 16:05 Date of Discharge: October 19, 2023 Attending Provider at Admission: Benton Gonsalez Attending Provider at Discharge: Nilsa Sinha MD Primary Care Provider: HENOK Caicedo Diagnoses at Discharge Discharge Diagnosis (1) Anxiety: Status: Acute (2) Hypertension: Status: Acute Qualifiers: Hypertension type: unspecified Qualified Code(s): I10 - Essential ( primary) hypertension (3) Atrial fibrillation: Status: Acute (4) GERD (gastroesophageal reflux disease): Status: Acute Qualifiers: Esophagitis presence: without esophagitis Qualified Code(s): K21.9 - G patrick-esophageal reflux disease without esophagitis (5) Ileus: Status: Acute (6) LORI (acute kidney injury): Status: Acute (7) Hypoxia: Status: Acute Reason for Visit Reason for Visit: N/V, Cant poop, Dehydration Hospital Course Hospital Course 68-year female who present to the hospital for nausea vomiting and diarrhea, she was diagnosed with ileus, cecal dilation up to 9 cm, during hospitalization she was given MiraLAX, she kept having bowel movement on daily basis, repeat KUB showed improvement, she is passing gas, tolerating clear liquid diet, no significant leukocytosis at the time of discharge, at that admission her white count was 30,000 it has come down to 10,000, she remained afebrile, she was kept on Zosyn for possible ischemic bowel possibility however suspicion is low I have asked patient not to advance her diet for at least 2 to 3 days, I have counseled her to keep herself on clear liquid diet, patient is well aware that she needs to keep taking aggressive bowel regimen she was also counseled on smoking cessation. Patient has been hypertensive, added lisinopril 20 mg daily, we do believe her ileus was related to high-dose cardiogenic iliana which I have discontinued, increase the dose of metoprolol for her A-fib, Physical Exam Narrative: Awake and alert GCS 15 Signs of dehydration improving No active nausea or vomiting Pleasant cooperative Nonfocal neuroexam Currently on room air Discharge Data Studies Completed and Pending Completed Studies During Hospitalization Category Date Time Status CT abdomen pelvis w con* [id number] Urgent Cat Scan 10/16/23 22:37 Completed XR KUB [id number] Stat Exams 06/02/24 14:37 Completed XR KUB portable [id number] Routine Exams 10/19/23 08:51 Completed XR chest 1V portable [id number] Stat Exams 10/17/23 02:09 Completed Pending at discharge Category Date Time Status Blood Culture Stat Lab 10/17/23 02:29 Results Complete Blood Count w/Auto AM LABS Lab 10/20/23 04:00 Ordered Comprehensive Metabolic Panel AM LABS Lab 10/20/23 04:00 Ordered Prothrombin Time INR AM LABS Lab 10/20/23 04:00 Ordered Radiology Impressions Abdomen/Pelvis CT 10/16/23 22:37 IMPRESSION: 1. Prominent fluid in the stomach and small bowel with gastric wall thickening suggestive of a gastroenteritis. 2. Constipation. 3. Surgical hardware in the spine with chronic appearing fluid in the. 4. Bilateral renal cysts, negative for follow-up advised. 5. Emphysematous changes. 6. Cholecystectomy. 7. Right kidney upper pole 15 mm cystic lesion again seen with a thin internal septation consistent with a Bosniak 2 F lesion as previously noted. Bosniak IIF cystic renal mass. The large majority of Bosniak IIF masses are benign. When malignant, nearly all are indolent. Generally, Bosniak IIF masses are followed by imaging at 6 months and 12 months, then annually for a total of 5 years to assess for morphologic change. (Reference: Ramón). 8. Severe osteoarthritis of the hips bilaterally. COMMENTS: Consistent with the [employer] [employer]'s Incidental Findings Committee white paper (J Am Yrn Radiol 2018): Any incidental renal lesion less than 1 cm or classified as too small to characterize, or any incidental cystic renal lesion characterized as simple-appearing, is likely benign. No follow-up imaging is recommended for these lesions per consensus recommendations based on imaging criteria. REFERENCES: Ramón BARAHONA, et al. Bosniak Classification of Cystic Renal Masses, Version 2019: An Update Proposal and Needs Assessment. Radiology. 2019;292(2):475-488. Chest X-Ray 10/17/23 02:09 IMPRESSION: No consolidation. KUB X-Ray 10/19/23 08:51 IMPRESSION: Persistent but improving gaseous distension of the colon. No evidence of a small bowel obstruction. Laboratory Results WBC 10.27 10^3/uL (3.29-11.43) 10/19/23 05:30 RBC 3.98 10^6/uL (3.85-5.65) 10/19/23 05:30 Hgb 11.70 g/dL (11.27-16.99) 10/19/23 05:30 Hct 35.0 % (36-47) L 10/19/23 05:30 MCV 87.9 fl (85-98) 10/19/23 05:30 MCH 29.4 pg (27-33) 10/19/23 05:30 MCHC 33.4 g/dL (30-55) 10/19/23 05:30 RDW 17.6 % (12.1-15.1) H 10/19/23 05:30 Plt Count 259 10^3/cmm (157-399) 10/19/23 05:30 MPV 9.9 fL (7.4-10.4) 10/19/23 05:30 Neut % (Auto) 67.7 % 10/19/23 05:30 Lymph % (Auto) 25.7 % 10/19/23 05:30 [place] % (Auto) 5.3 % 10/19/23 05:30 Eos % (Auto) 0.5 % 10/19/23 05:30 Baso % (Auto) 0.5 % 10/19/23 05:30 Neut # (Auto) 6.96 10^3/uL (1.8-7.7) 10/19/23 05:30 Lymph # (Auto) 2.6 10^3/uL (0.8-4.8) 10/19/23 05:30 [place] # (Auto) 0.5 10^3/uL (0.2-0.9) 10/19/23 05:30 Eos # (Auto) 0.1 10^3/uL (0.0-0.8) 10/19/23 05:30 Baso # (Auto) 0.1 10^3/uL (0.0-0.1) 10/19/23 05:30 Nucleated RBC % (auto) 0 % 10/19/23 05:30 Nucleated RBCs # 0.0 /100WBC 10/19/23 05:30 PT 20.00 SECONDS (12.1-14.9) H D 10/19/23 05:30 INR 1.64 (0.8-1.2) H 10/19/23 05:30 Sodium 137 mmol/L (136-145) 10/19/23 05:30 Potassium 3.5 mmol/L (3.5-5.1) 10/19/23 05:30 Chloride 103 mmol/L (98-107) 10/19/23 05:30 Carbon Dioxide 24 mmol/L (22-29) 10/19/23 05:30 Anion Gap 13.5 (5-19) 10/19/23 05:30 BUN 13 mg/dL (8-23) 10/19/23 05:30 Creatinine 0.9 mg/dL (0.5-0.9) 10/19/23 05:30 GFR Calculation 62.6 mL/min (90-130) L 10/19/23 05:30 Glucose 76 mg/dL (65-115) 10/19/23 05:30 POC Glucose 85 mg/dL (70-110) 10/19/23 10:50 Calculated Osmolality 283 mOsm/kg (285-295) L 10/19/23 05:30 Lactic Acid 2.8 mmol/L (0.5-2.2) H 10/16/23 22:30 Lactic Acid (Sepsis) 3.2 mmol/L (0.5-2.2) H 10/17/23 01:18 Calcium 8.5 mg/dL (8.5-10.5) 10/19/23 05:30 Phosphorus 2.3 mg/dL (2.5-4.5) L 10/18/23 05:06 Magnesium 1.9 mg/dL (1.7-2.3) 10/18/23 05:06 Total Bilirubin 0.5 mg/dL (0.15-1.2) 10/19/23 05:30 AST 23 U/L (0-32) 10/19/23 05:30 ALT 15 U/L (0-33) 10/19/23 05:30 Alkaline Phosphatase 129 U/L (35-105) H 10/19/23 05:30 C-Reactive Protein 33.6 mg/L (0.0-4.9) H 10/16/23 22:30 Total Protein 5.8 g/dL (6.6-8.7) L 10/19/23 05:30 Albumin 2.6 g/dL (3.5-5.2) L 10/19/23 05:30 Globulin 3.2 g/dL (1.3-4.6) 10/19/23 05:30 Lipase 56 U/L (13-60) 10/16/23 22:30 Urine Color Dark yellow (Yellow) 10/16/23 23:37 Urine Appearance Clear (CLEAR) 10/16/23 23:37 Urine pH 5 (5-7) 10/16/23 23:37 Ur Specific [place] 1.015 (1.005-1.030) 10/16/23 23:37 Urine Protein 3+ (Negative) H 10/16/23 23:37 Urine Glucose (UA) Norm (Normal) 10/16/23 23:37 Urine Ketones 1+ (Negative) H 10/16/23 23:37 Urine Blood 2+ (Negative) H 10/16/23 23:37 Urine Nitrate Positive (Negative) H 10/16/23 23:37 Urine Bilirubin 2+ (Negative) H 10/16/23 23:37 Urine Urobilinogen 8 mg/dL (Negative) H 10/16/23 23:37 Ur Leukocyte Esterase 1+ (Negative) H 10/16/23 23:37 Urine RBC 5-10 /hpf (0-2) H 10/16/23 23:37 Urine WBC 5-10 /hpf (0-5) H 10/16/23 23:37 Ur Squamous Epith Cells 0-4 /hpf (0-5) H 10/16/23 23:37 Amorphous Sediment Trace /hpf 10/16/23 23:37 Urine Bacteria 2+ /hpf (NONE) H 10/16/23 23:37 Hyaline Casts 5-10 /lpf H 10/16/23 23:37 Coarse Granular Casts 0-4 /lpf H 10/16/23 23:37 Urine Mucus Trace /hpf 10/16/23 23:37 Adenovirus (PCR) Not detected (NOT DETECT) 10/17/23 04:43 C. pneumoniae DNA (PCR) Not detected (NOT DETECT) 10/17/23 04:43 C. difficile (PCR) Negative (Negative) 10/18/23 09:49 Coronavirus 229E (PCR) Not detected (NOT DETECT) 10/17/23 04:43 Human Metapneumovir PCR Not detected (NOT DETECT) 10/17/23 04:43 Influenza A (H1) PCR Not detected (NOT DETECT) 10/17/23 04:43 Influ A (H1/09) PCR Not detected (NOT DETECT) 10/17/23 04:43 Influenza A (H3) PCR Not detected (NOT DETECT) 10/17/23 04:43 Influenza Type A (PCR) Not detected (NOT DETECT) 10/17/23 04:43 Influenza Type B (PCR) Not detected (NOT DETECT) 10/17/23 04:43 M. pneumoniae (PCR) Not detected (NOT DETECT) 10/17/23 04:43 Parainfluenza 1 (PCR) Not detected (NOT DETECT) 10/17/23 04:43 Parainfluenza 2 (PCR) Not detected (NOT DETECT) 10/17/23 04:43 Parainfluenza 3 (PCR) Not detected (NOT DETECT) 10/17/23 04:43 Parainfluenza 4 (PCR) Not detected (NOT DETECT) 10/17/23 04:43 RSV Type A (PCR) Not detected (NOT DETECT) 10/17/23 04:43 RSV Type B (PCR) Not detected (NOT DETECT) 10/17/23 04:43 Entero/Rhino (PCR) Not detected (NOT DETECT) 10/17/23 04:43 SARS-CoV-2 (PCR) Not detected (NOT DETECT) 10/17/23 04:43 Vitals Last Vital Signs Temp 98.3 F 10/19/23 10:51 Pulse 65 10/19/23 10:51 Resp 16 10/19/23 10:51 BP 182/77 10/19/23 10:51 Pulse Ox 94 10/19/23 10:51 O2 Del Method Room Air 10/19/23 10:51 O2 Flow Rate 2 10/18/23 07:46 Discharge Plan Discharge Patient Disposition: Home Condition: Fair Prescriptions: New lisinopril 20 mg tablet 20 mg PO DAILY Qty: 60 3RF amoxicillin-pot clavulanate 875-125 mg tablet 1 tab PO BID Qty: 10 0RF sennosides-docusate sodium [Senna-S] 8.6-50 mg tablet 1 tab-cap PO BID Qty: 30 0RF Continued multivitamin Tablet 1 tab PO DAILY (DME) BATOOL Carbajal See Rx Instructions .Route .MEDSUPPLY Qty: 1 0RF Rx Instructions: As directed (DME) wheelchair See Rx Instructions .Route .MEDSUPPLY Qty: 1 0RF Rx Instructions: As directed Flonase Sensimist 27.5 mcg/actuation spray,suspension 2 spray intranasal DAILY Qty: 5.9 0RF Rx Instructions: into each nostril hydrocodone-acetaminophen 5-325 mg tablet 1 tab PO Q4H PRN (Reason: pain) 5 Days Qty: 30 0RF (DME) Bone Growth Stimulator E0748 See Rx Instructions .Route .MEDSUPPLY Qty: 1 0RF Rx Instructions: As directed budesonide 3 mg capsule,delayed,extend.release See Rx Instructions .ROUTE .COMPLEX Qty: 90 0RF Dose Instruction: Take 2 capsules by mouth once daily Rx Instructions: Take 2 capsules by mouth once daily citalopram 20 mg tablet See Rx Instructions .ROUTE .COMPLEX Qty: 90 0RF Dose Instruction: Take 1 tablet by mouth once daily Rx Instructions: Take 1 tablet by mouth once daily potassium chloride 10 mEq tablet,ER particles/crystals See Rx Instructions .ROUTE .COMPLEX Qty: 90 0RF Dose Instruction: Take 1 tablet by mouth once daily Rx Instructions: Take 1 tablet by mouth once daily rabeprazole 20 mg tablet,delayed release (DR/EC) See Rx Instructions .ROUTE .COMPLEX Qty: 90 0RF Dose Instruction: Take 1 tablet by mouth once daily Rx Instructions: Take 1 tablet by mouth once daily cholecalciferol (vitamin D3) [Vitamin D3] 50 mcg (2,000 unit) Tablet 50 mcg PO DAILY biotin 1 mg Capsule 1 mg PO DAILY warfarin 4 mg Tablet 4 mg PO DIRECTED Rx Instructions: 1.5 pills on and 1.5 pills on wednesday atorvastatin 40 mg tablet 40 mg PO QPM aspirin 325 mg Tablet 325 mg PO DAILY Changed metoprolol tartrate 25 mg tablet 50 mg PO BID Qty: 60 2RF Discontinued diltiazem HCl [Cartia XT] 300 mg capsule,extended release 24hr See Rx Instructions .ROUTE .COMPLEX Qty: 90 0RF Dose Instruction: Take 1 capsule by mouth once daily Rx Instructions: Take 1 capsule by mouth once daily Discharge Orders: Discharge Order (Routine); Ordered 10/19/23 Ordered By: Nilsa Sinha Referrals: Phyllis Cheney FNP [Primary Care Provider] - 06/07/24 10:40 am Discharge Diet: Clear Liquid Discharge Activity: Increase activity as tolerated Patient Instructions: Lisinopril (By mouth), Amoxicillin/Clavulanate Potassium (By mouth), Laxative, Stool Softeners (By mouth), Opioid Safety Discharge Attestations Time Spent in Discharge Care*: greater than 30 min Status at Discharge: Cognitive status at discharge: cognitively intact , Behavioral status at discharge: cooperative , Quality Metrics Clinical Quality Measures [ No reported AMI, CVA or VTE this stay] Coding Level of Care Code Acute Code for Chg Fwd Diagnoses Anxiety F41.9 Hypertension, unspecified type I10 Hypertension type: unspecified Atrial fibrillation I48.91 Gastroesophageal reflux disease without esophagitis K21.9 Esophagitis presence: without esophagitis Ileus K56.7 LORI (acute kidney injury) N17.9 Hypoxia R09.02
[2023-10-19] MEDS: lisinopril 20 mg Tablet PO (12:17)
--- NOTE | 2023-10-19 12:49 | PC.NURSE ---
Discharge delayed. Waiting for ride.
[2023-10-19 14:25] VITALS: BP 182/77; PULSE 65; RESP 16; TEMP 36.8; O2SAT 94
== END 2023-10-19 14:26 | disposition home or self-care (01) ==
LOC: ER 10-17 02:42 → MEDSURG 10-17 03:40
PROVIDERS: Admitting Provider Internal Medicine; Emergency Provider Emergency Medicine; PCP Nurse Practitioner Family; Visit Provider Internal Medicine
DX: K56.7 Ileus, unspecified (principal); N17.9 Acute kidney failure, unspecified; R09.02 Hypoxemia; I10 Essential (primary) hypertension; I48.91 Unspecified atrial fibrillation; K21.9 Gastro-esophageal reflux disease without esophagitis; F17.200 Nicotine dependence, unspecified, uncomplicated; Z87.11 Personal history of peptic ulcer disease; Z79.01 Long term (current) use of anticoagulants; Z98.890 Other specified postprocedural states
CPT/HCPCS: 36415; 36416; 71045; 74018; 74177; 80053; 81001; 82962; 83605; 83690; 83735; 84100; 85025; 85610; 86140; 87040; 87086; 87486; 87493; 87581; 87633; 96365; 96375; 96376; 99285; G0378; J0360; J2270; J2405; J2543; J7030; J7120; Q9967

== ENCOUNTER → 2023-10-20 10:12 | Outpatient (BNVA) | payer MEDICARE, MEDICAID, SELFPAY | PROVIDERS: PCP Nurse Practitioner Family; Visit Provider Nurse Practitioner Family | DX: I48.91 Unspecified atrial fibrillation (principal) | CPT/HCPCS: 85610 ==

== ENCOUNTER → 2023-10-28 13:35 | Outpatient (BNVA) | payer MEDICARE, MEDICAID, SELFPAY | PROVIDERS: PCP Nurse Practitioner Family; Visit Provider Nurse Practitioner Family | DX: Z51.81 Encounter for therapeutic drug level monitoring (principal); Z79.01 Long term (current) use of anticoagulants; I10 Essential (primary) hypertension; R53.83 Other fatigue | CPT/HCPCS: 80053; 85025; 85610 ==

== ENCOUNTER → 2023-11-01 14:21 | Outpatient (BNVA) | payer MEDICARE, MEDICAID, SELFPAY | PROVIDERS: PCP Nurse Practitioner Family; Visit Provider Nurse Practitioner Family | DX: R10.9 Unspecified abdominal pain (principal); N39.0 Urinary tract infection, site not specified | CPT/HCPCS: 81000; 87086 ==

== ENCOUNTER → 2023-11-04 14:07 | Outpatient (BNVA) | payer MEDICARE, MEDICAID, SELFPAY | PROVIDERS: PCP Nurse Practitioner Family; Visit Provider Nurse Practitioner Family | DX: Z51.81 Encounter for therapeutic drug level monitoring (principal); Z79.01 Long term (current) use of anticoagulants | CPT/HCPCS: 85610 ==

== ENCOUNTER → 2023-11-11 14:08 | Outpatient (BNVA) | payer MEDICARE, MEDICAID, SELFPAY | PROVIDERS: PCP Nurse Practitioner Family; Visit Provider Nurse Practitioner Family | DX: S22.49XA Multiple fractures of ribs, unspecified side, initial encounter for closed fracture (principal); X58.XXXA Exposure to other specified factors, initial encounter; Z51.81 Encounter for therapeutic drug level monitoring; Z79.01 Long term (current) use of anticoagulants | CPT/HCPCS: 85610 ==